=== PATIENT | female | born 1975 | race Caucasian/White ===

== ENCOUNTER 2021-07-11 11:49 | Outpatient (CLI) | payer BC, SELFPAY | END 2021-07-11 23:59 | disposition home or self-care (01) | PROVIDERS: Visit Provider Obstetrics & Gynecology | DX: R30.0 Dysuria (principal) | CPT/HCPCS: 87086; 87088 ==

== ENCOUNTER 2021-07-19 14:12 | Outpatient (CLI) | payer BC, SELFPAY ==
--- NOTE | 2021-07-19 14:19 | US_ITS ---
STUDY: ULTRASOUND BREAST - RIGHT REASON FOR EXAM: Female, 46 years old. Palpable mass TECHNIQUE: Axial and longitudinal images of the RIGHT breast were performed with a high resolution ultrasound transducer. # OF IMAGES: 22 COMPARISON: Diagnostic mammogram earlier today FINDINGS: RIGHT Breast: Heterogeneous background echotexture. Multiple longitudinal and transverse ultrasound images of the lower outer quadrant of the right breast fail to demonstrate a discrete solid or cystic mass most consistent with normal breast parenchyma.: US/Breast Limited Unilateral IMPRESSION: Normal diagnostic mammogram and right breast ultrasound. However, biopsy of any palpable abnormality should be performed if clinically indicated. ASSESSMENT CATEGORY: BIRADS Category 1: Negative. A letter regarding these results will be sent to the patient by the facility within 30 days. Electronically Signed: Aleksander Sewell MD at 16:21 EDT ,
--- NOTE | 2021-07-19 14:19 | BI_ITS ---
MAMMOGRAPHY - BILATERAL DIAGNOSTIC REASON FOR EXAM: Female, 46 years old. LUMP RIGHT BREAST PERTINENT HISTORY: Non-contributory. TECHNIQUE: Digital examination. Mediolateral oblique (MLO) and craniocaudad (CC) views of both breasts were obtained. CAD: CAD was performed on this study. COMPARISON: 09/24/2020 FINDINGS: Breast Composition: There are scattered areas of fibroglandular density. There are no dominant masses or suspicious calcifications. No other significant abnormalities are identified. BI/DIAG MAMM W/CAD, BILAT IMPRESSION: Stable bilateral diagnostic mammogram. Ultrasound of the palpable abnormality will be obtained. ASSESSMENT CATEGORY: BIRADS Category 0: Incomplete. Need additional imaging evaluation. A letter regarding these results will be sent to the patient by the facility within 30 days. FOLLOW UP RECOMMENDATION: Ultrasound Recommended. (I) Approximately 10% of breast cancers are not detected by mammography. A normal mammogram should not delay biopsy of a clinically suspicious abnormality. Electronically Signed: Aleksander Sewell MD at 15:17 EDT ,
== END 2021-07-19 23:59 | disposition home or self-care (01) ==
PROVIDERS: Referring Provider Obstetrics & Gynecology; Visit Provider Obstetrics & Gynecology
DX: N63.10 Unspecified lump in the right breast, unspecified quadrant (principal)
CPT/HCPCS: 76642; 77062; 77066; G0279

== ENCOUNTER → 2025-03-02 | Outpatient (CLI) | payer BC, SELFPAY ==
--- OUTSIDE RECORDS SUMMARY | 2025-03-02 11:06 | XMS RPT_ITS | CCD ---
Author Organization [facility] Care Team Providers Care Miter Grinder Operator Name Role Phone Pcp, No Primary Care Provider Unavailvane e Carolee LICENSED ARCHITECT.ROBER, Nikita Primary Care Provider Kristine Keyes CNP Unavailable CLEOPATRA CORTÉS Referring Unavailable INKITA CHOUDHARY Primary Care Unavailable DIOGO LIM Attending Unavaila ble Stephy RICHTER, Kristine Primary Care Provider [phone] STEPHY, KRISTINE Primary Care Unavailable ZAINA TAVARES Attending Unavailable KEYES, KRISTINE Primary Care Unavailable ZAINA TAVARES Referring Unavailable KEYES, KRISTINE Primary Care Unavailable PLOTZAINA GARCÍA Referring Unavailable KEYES, KRISTINE Primary Care Unavailable DEZ KAY Attending Unavailable KEYES, KRISTINE Primary Care Unavailable JOANIE LUNA Referring Unavailable KEYES, KRISTINE Primary Care Unavailable CHERYLKASHMIREE Referring Unavailable KEYES, KRISTINE Primary Care Unavailable ANISA OWENS Attending Unavailable KEYES, KRISTINE Primary Care Unavailable ZAINA TAVARES Attending Unavailable Allergies Allergy Classification Reported Allergen(s) Allergy Type Date of Onset Reaction(s) Facility Opioid Agonists (1 source) Codeine Drug Allergy 03-09-2005 [facility] (20 sources) Codeine; Translations: [CODEINE] Drug Allergy 03-09-2005 [facility] Work Phone: Medications Current Medications Medication Drug Class(es) Dates Sig (Normalized) Sig (Original) cephalexin 500 mg oral capsule (1 source) Cephalosporin Antibacterial Start: 03-18-2024 End: 03-21-2024 take 1 capsule by mouth four times daily cephALEXin (KEFLEX) 500 mg capsule Take 1 capsule by mouth four times daily for 3 days. 12 capsule 03/18/2024 03/21/2024 Active nitrofurantoin, macrocrystals 25 mg / nitrofurantoin, monohydrate 75 mg oral capsule (2 sources) Nitrofuran Antibacterial Start: 10-08-2023 End: 10-13-2023 take 1 capsule by mouth twice daily nitrofurantoin monohydrate and macrocrystal (MACROBID) 100 mg capsule Indications: Acute cystitis with hematuria Take 1 capsule by mouth two times a day for 5 days. 10 capsule 0 10/08/2023 10/13/2023 Active Start: 12-14-2022 End: 12-19-2022 take 1 capsule by mouth twice daily nitrofurantoin monohydrate and macrocrystal (MACROBID) 100 mg capsule Take 1 capsule by mouth twice daily for 5 days. 10 capsule 0 12/14/2022 12/19/2022 Comment on above: Take 1 capsule by [facility] twice daily for 5 days. omeprazole 20 mg delayed release oral capsule (11 sources) Proton Pump Inhibitor take 1 capsule by mouth once daily omeprazole (PRILOSEC) 20 mg capsule Take 20 mg by mouth once daily. Active Comment on above: Take 20 mg by mouth once daily. phenazopyridine hydrochloride 200 mg oral tablet (6 sources) Start: 03-18-20 take 1 tablet by mouth three times daily as needed phenazopyridine (PYRIDIUM) 200 mg tablet Take 1 tablet by mouth as directed. Take TID for 3 days prn bladder discomfort 30 tablet 1 03/18/2024 Active SEMAGLUTIDE SUBCUTANEOUS (10 sources) SEMAGLUTIDE SUBCUTANEOUS Inject subcutaneously. Active SEMAGLUTIDE SUBC UTANEOUS Inject subcutaneously. 0 Active triamcinolone acetonide 0.001 mg/mg topical ointment (3 sources) Corticosteroid Start: 06-16-2024 triamcinolone acetonide (KENALOG) 0.1 % ointment Apply to affected area two times a day. 30 g 06/16/2024 Active Completed/Discontinued Medications Medication Drug Class(es) Dates Sig (Normalized) Sig (Original) 12 hr buPROPion hydrochloride 150 mg extended release oral tablet (2 sources) Aminoketone Start: 05-08-2014 End: 12-19-2022 take 1 tablet by mouth twice daily buPROPion SR (ZYBAN SR; WELLBUTRIN SR) 150 mg 12 hr tablet Indications: Tobacco use disorder Take 1 tablet by mouth twice daily. 60 tablet 5 05/08/2014 12/19/2022 Discontinued (Course of therapy completed) Comment on above: Take 1 tablet by isabel th twice daily. fluconazole 150 mg oral tablet (2 sources) Azole Antifungal Start: 06-17-2024 End: 06-17-2024 take 1 tablet by mouth once fluconazole (DIFLUCAN) 150 mg tablet Indications: Vaginal yeast infection Take 1 tablet by mouth one time only for 1 dose. 1 tablet 06/17/2024 06/17/2024 Start: 12-19-2022 End: 12-19-2022 take 1 tablet by mouth once fluconazole (DIFLUCAN) 150 mg tablet Indications: Vaginal yeast infection Take 1 tablet by mouth one time only for 1 dose. 1 tablet 0 12/19/2022 12/19/2022 Comment on above: Take 1 tablet by isabel th one time only for 1 dose. metroNIDAZOLE 500 mg oral tablet (1 source) Nitroimidazole Antimicrobial Start: 025 End: take 1 tablet by mouth twice daily metroNIDAZOLE (FLAGYL) 500 mg tablet Indications: Bacterial vaginosis Take 1 tablet by mouth two times a day for 7 days. 14 tablet 06/17/2024 06/24/2024 nabumetone 500 mg oral tablet (2 sources) Nonsteroidal Anti-inflammatory Drug Start: 014 End: take 1 tablet by mouth every twelve hours as needed nabumetone 500 mg tablet Take 1 tablet by mouth twice daily as needed for Pain. TAKE WITH FOOD 60 tablet 3 11/20/2013 12/19/2022 Discontinued (Course of therapy completed) Comment on above: Take 1 tablet by isabel twice daily as needed for Pain. TAKE WITH FOOD nicotine 2 mg chewing gum (2 sources) Cholinergic Nicotinic Agonist Start: 015 End: 023 take 1 dose by mouth every two hours as needed nicotine polacrilex (NICORETTE) 2 mg gum Indications: Tobacco use disorder Take 1 Each by mouth every 2 hours as needed (nicotine withdrawal). 20 Each 5 05/08/2014 12/19/2022 Discontinued (Course of therapy completed) Comment on above: Take 1 Each by mouth every 2 hours as needed (nicotine withdrawal). pramipexole dihydrochloride 0.5 mg oral tablet (10 sources) Nonergot Dopamine Agonist End: take 1 tablet by mouth once daily at bedtime pramipexole (MIRAPEX) 0.5 mg tablet Take 0.5 mg by mouth daily at bedtime. 0 03/11/2023 Discontinued (Course of therapy completed) Comment on above: Take 0.5 mg by mouth daily at bedtime. raNITIdine 150 mg oral tablet (14 sources) Histamine-2 Receptor Antagonist Start: 014 End: 023 take 1 tablet by mouth twice daily ranitidine 150 mg tablet Indications: GERD (gastroesophageal reflux disease) Take 1 tablet by mouth twice daily. 60 tablet 5 01/08/2014 12/19/2022 Discontinued (Course of therapy completed) Start: 02-23-2013 RANITIDINE HCL ORAL Take by mouth. 02/23/2013 Active Start: 02-23-2013 RANITIDINE HCL ORAL Take by mouth. 0 02/23/2013 Active Comment on above: Take 1 tablet by isabel twice daily. Take by mouth. Problems Active Problems Problem Classification Problem Date Documented Date Episodic/Chronic Disorders of lipid metabolism (20 sources) Hyperlipidemia; Translations: [Hyperlipidemia, unspecified] Onset: 05-15-2013 05-15-2013 Chronic Gastroduodenal ulcer (except hemorrhage) (1 source) H/O: peptic ulcer; Translations: [Personal history of peptic ulcer disease] Episodic Genitourinary symptoms and ill-defined conditions (6 sources) Increased frequency of urination; Translations: [Frequency of micturition] 10-08-2023 Episodic Hemorrhage during ; abruptio placenta; placenta previa (1 source) Hemorrhage in early , unspecified; Translations: [Bleeding in early (HCC)] Onset: 02-26-2025 Episodic Immunizations and screening for infectious disease (19 sources) Patient encounter status; Translations: [Encounter for screening for human papillomavirus (HPV)] Onset: 03-11-2023 12-19-2022 Episodic Inflammatory diseases of female pelvic organs (1 source) Bacterial vaginosis; Translations: [Acute vaginitis] 06-17-2024 Episodic Menopausal disorders (3 sources) Perimenopausal state; Translations: [Menopausal and female climacteric states] Onset: 12-31-2024 12-31-2024 Chronic Menstrual disorders (1 source) Irregular periods; Translations: [Irregular menstruation, unspecified] 12-31-2024 Chronic Mycoses (2 sources) Candidiasis of vagina; Translations: [Vaginal yeast infection] 12-19-2022 Episodic Other female genital disorders (1 source) Vaginal odor; Translations: [Other specified noninflammatory disorders of vagina] 06-14-2023 Episodic Other female genital disorders (1 source) Vaginal irritation; Translations: [Other specified noninflammatory disorders of vagina] 06-16-2024 Episodic Other inflammatory condition of skin (1 source) Pruritus of vulva; Translations: [Pruritus vulvae] 06-16-2024 Episodic Other screening for suspected conditions (not mental disorders or infectious disease) (8 sources) Cancer cervix screening status; Translations: [Encounter for screening for malignant neoplasm of cervix] Onset: 05-15-2023 12-19-2022 Episodic Spondylosis; intervertebral disc disorders; other back problems (1 source) Low back pain; Translations: [Low back pain, unspecified back pain laterality, unspecified chronicity, unspecified whether sciatica present] Episodic Substance-related disorders (20 sources) Tobacco user; Translations: [Nicotine dependence, unspecified, uncomplicated] Onset: 06-14-2006 06-14-2006 Chronic Syncope (1 source) Near syncope; Translations: [Syncope and collapse] 02-05-2023 Episodic Unclassified (1 source) Patient encounter status 12-31-2024 Urinary tract infections (5 sources) Acute cystitis; Translations: [Acute cystitis with hematuria] Onset: 12-31-2024 10-08-2023 Episodic Past or Other Problems Problem Classification Problem Date Documented Da te Episodic/Chronic Abdominal pain (10 sources) Epigastric pain; Translations: [Epigastric pain] Onset: 01-08-2014 Resolved: 01-08-2014 01-08-2014 Episodic Residual codes; unclassified (20 sources) Family history of coronary arteriosclerosis; Translations: [Family history of ischemic heart disease and other diseases of the circulatory system] Onset: 06-26-2011 06-26-2011 Episodic Results Test Name Value Interpretation Reference Range Facil ity CBC W Auto Differential pane l (Bld)on 02-26-2025 Basophils (Bld) [#/Vol] 0.06 10*3/uL Normal <0.11 [facility] Comment on above: Order Comment: Speci men Type: BLOOD SPECIMENOrdering Facility: [facility] Address: [address] [place] [address] Performed By: #### 5 7021-8 ####[facility] OPALRadhikaNCLIA [id number] [place] [address] [place] Basophils/100 WBC (Bld) 0.5 % Normal [facility] Comment on above: Order Comment: Speci men Type: BLOOD SPECIMENOrdering Facility: [facility] Address: [address] [place] [address] Performed By: #### 5 7021-8 ####CENTERVILLELIA [id number] [place] [address] [place] Differential cell count method Nom (Bld) Auto Normal [facility] Comment on above: Order Comment: Speci men Type: BLOOD SPECIMENOrdering Facility: [facility] Address: [address] [place] [address] Performed By: #### 5 7021-8 ####CENTERVILLELIA [id number] [place] [address] [place] Eosinophils (Bld) [#/Vol] 0.26 10*3/uL Normal <0.46 [facility] Comment on above: Order Comment: Speci men Type: BLOOD SPECIMENOrdering Facility: [facility] Address: [address] [place] [address] Performed By: #### 5 7021-8 ####[facility] MILLWNCLIA [id number] [place] [address] [place] Eosinophils/100 WBC (Bld) 2.0 % Normal [facility] Comment on above: Order Comment: Speci men Type: BLOOD SPECIMENOrdering Facility: [facility] Address: [address] [place] [address] Performed By: #### 5 7021-8 ####[facility] HOSPITALWEMMETTLIA [id number] [place] [address] [place] Erythrocyte distribution width (RBC) [Ratio] 13.2 % Normal 11.5-15.0 [facility] Comment on above: Order Comment: Speci men Type: BLOOD SPECIMENOrdering Facility: [facility] Address: [address] [place] [address] Performed By: #### 5 7021-8 ####[facility]OSPITALEMMETTLIA [id number] [place] [address] [place] Hematocrit (Bld) [Volume fraction] 42.2 % Normal 36.0-46.0 [facility] Comment on above: Order Comment: Speci men Type: BLOOD SPECIMENOrdering Facility: [facility] Address: [address] [place] [address] Performed By: #### 5 7021-8 ####[facility]PITALEMMETTGARFIELD [facility] [id number] [place] [address] [place] Hemoglobin (Bld) [Mass/Vol] 13.7 g/dL Normal 11.5-15.5 [facility] Comment on above: Order Comment: Speci men Type: BLOOD SPECIMENOrdering Facility: [facility] Address: [address] [place] [address] Performed By: #### 5 7021-8 ####CENTERV[facility]LELIA [id number] [place] [address] [place] Immature granulocytes (Bld) [#/Vol] 0.06 10*3/uL Normal <0.10 [facility] Comment on above: Order Comment: Speci men Type: BLOOD SPECIMENOrdering Facility: [facility] Address: [address] [place] [address] Performed By: #### 5 7021-8 ####[facility] HOSPITALNCLI [id number] [place] [address] [place] Immature granulocytes/100 WBC (Bld) 0.5 % Normal [facility] Comment on above: Order Comment: Speci men Type: BLOOD SPECIMENOrdering Facility: [facility] Address: [address] [place] [address] Performed By: #### 5 7021-8 ####[facility]PITALNCGARFIELD [facility] [id number] [place] [address] [place] Lymphocytes (Bld) [#/Vol] 3.09 10*3/uL Normal 1.00-4.00 [facility] Comment on above: Order Comment: Speci men Type: BLOOD SPECIMENOrdering Facility: [facility] Address: [address] [place] [address] Performed By: #### 5 7021-8 ####[facility] [id number] [place] [address] [place] Lymphocytes/100 WBC (Bld) 23.9 % Normal [facility] Comment on above: Order Comment: Speci men Type: BLOOD SPECIMENOrdering Facility: [facility] Address: [address] [place] [address] Performed By: #### 5 7021-8 ####[facility] [id number] [place] [address] [place] MCH (RBC) [Entitic mass] 29.1 pg Normal 26.0-34.0 [facility] Comment on above: Order Comment: Speci men Type: BLOOD SPECIMENOrdering Facility: [facility] Address: [address] [place] [address] Performed By: #### 5 7021-8 ####[facility] [id number] [place] [address] [place] MCHC (RBC) [Mass/Vol] 32.5 g/dL Normal 30.5-36.0 [facility] Comment on above: Order Comment: Speci men Type: BLOOD SPECIMENOrdering Facility: [facility] Address: [address] [place] [address] Performed By: #### 5 7021-8 ####[facility] HOSPITALCHRISTIAN [id number] [place] [address] [place] MCV (RBC) [Entitic vol] 89.6 fL Normal 80.0-100.0 [facility] Comment on above: Order Comment: Speci men Type: BLOOD SPECIMENOrdering Facility: [facility] Address: [address] [place] [address] Performed By: #### 5 7021-8 ####[facility] HOSPITALNCA [id number] [place] [address] [place] Monocytes (Bld) [#/Vol] 0.81 10*3/uL Normal <0.87 [facility] Comment on above: Order Comment: Speci men Type: BLOOD SPECIMENOrdering Facility: [facility] Address: [address] [place] [address] Performed By: #### 5 7021-8 ####[facility] [id number] [place] [address] [place] Monocytes/100 WBC (Bld) 6.3 % Normal [facility] Comment on above: Order Comment: Speci men Type: BLOOD SPECIMENOrdering Facility: [facility] Address: [address] [place] [address] Performed By: #### 5 7021-8 ####[facility] HOSPITALNCLIA [id number] [place] [address] [place] Neutrophils (Bld) [#/Vol] 8.65 10*3/uL High 1.45-7.50 [facility] Comment on above: Order Comment: Speci men Type: BLOOD SPECIMENOrdering Facility: [facility] Address: [address] [place] [address] Performed By: #### 5 7021-8 ####[facility] OPALVANELIA [id number] [place] [address] [place] Neutrophils/100 WBC (Bld) 66.8 % Normal [facility] Comment on above: Order Comment: Speci men Type: BLOOD SPECIMENOrdering Facility: [facility] Address: [address] [place] [address] Performed By: #### 5 7021-8 ####[facility] HOSPITALNEISHA [id number] [place] [address] [place] Nucleated RBC (Bld) [#/Vol] 10*3/uL Normal <0.01 [facility] Comment on above: Order Comment: Speci men Type: BLOOD SPECIMENOrdering Facility: [facility] Address: [address] [place] [address] Performed By: #### 5 7021-8 ####[facility] [id number] [place] [address] [place] Nucleated RBC/100 WBC (Bld) [Ratio] 0.0 /100 WBC Normal [facility] Comment on above: Order Comment: Speci men Type: BLOOD SPECIMENOrdering Facility: [facility] Address: [address] [place] [address] Performed By: #### 5 7021-8 ####[facility]LECHANI [id number] [place] [address] [place] Platelet mean volume (Bld) [Entitic vol] 11.0 fL Normal 9.0-12.7 [facility] Comment on above: Order Comment: Speci men Type: BLOOD SPECIMENOrdering Facility: [facility] Address: [address] [place] [address] Performed By: #### 5 7021-8 ####[facility]LELIA [id number] [place] [address] [place] Platelets (Bld) [#/Vol] 275 10*3/uL Normal 150-400 [facility] Comment on above: Order Comment: Speci men Type: BLOOD SPECIMENOrdering Facility: [facility] Address: [address] [place] [address] Performed By: #### 5 7021-8 ####[facility]PITALNCGARFIELD [facility] [id number] [place] [address] [place] RBC (Bld) [#/Vol] 4.71 10*6/uL Normal 3.90-5.20 [facility] Comment on above: Order Comment: Speci men Type: BLOOD SPECIMENOrdering Facility: [facility] Address: [address] [place] [address] Performed By: #### 5 7021-8 ####[facility]ITALNCGAR[facility] [id number] [place] [address] [place] WBC (Bld) [#/Vol] 12.93 10*3/uL High 3.70-11.00 [facility] Comment on above: Order Comment: Speci men Type: BLOOD SPECIMENOrdering Facility: [facility] Address: [address] [place] [address] Performed By: #### 5 7021-8 ####[facility] [id number] [place] [address] [place] TYPE + SCREEN PRENATALon ABO O Normal [facility] Comment on above: Order Comment: Speci men Type: BLOOD SPECIMENOrdering Facility: [facility] Address: [address] [place] [address] Performed By: #### T SPN ####[facility] LABCLIA [id number] [place] [address] [place] Rh Nom (Bld) Positive Normal [facility] Comment on above: Order Comment: Speci men Type: BLOOD SPECIMENOrdering Facility: [facility] Address: [address] [place] [id number] Performed By: #### T SPN ####[facility] LABCLIA [id number] [place] [id number] [place] TYPE AND SCREEN EXPIRATION 03/01/2025 23:59 Normal [facility] Comment on above: Order Comment: Speci men Type: BLOOD SPECIMENOrdering Facility: [facility] Address: [address] [place] [address] [place] [address] Performed By: #### T SPN ####[facility] LABCLIA [id number] [place] [id number] [facility] CNOVon 02-25-2025 CNOV Office Visit (OBGYWM) YASMIN EDEN Raajt ([id number]) 1975 F Date Time Provider Department 02/25/25 1:30 PM ZAINA TAVARES OBGYWM During your visit today, we recorded the following information about you: Blood pressure Weight Last Period 118/78 107 kg 02/22/25 Zaina Tavares APRN.CNM 02/25/2025 2:08 PM Signed Yasmin Earl Meek is a pleasant 49 year old female who presents for heavy period. LMP: Patient's last menstrual period was 02/22/2025. How often are you bleeding? How many days? 4 Started spotting last Saturday and then full bleeding on Saturday. Reports cycle is very heavy and she continues to bleed through pads and clothes. Lower left pelvic pain. Denies any cramping. Denies passing any clots. Do you have bleeding between menses? No Spotting? No History of endometrial polyps? No Post coital bleeding? No Bleeding through clothing? Yes Are you double protecting? No Do you pack an extra set of clothing while bleeding? No Do you put towels on your bedsheets while you are sleeping? No Have you ever received a blood transfusion? No Iron infusion? No Do you have shortness of breath? No Lightheaded? No Dizzy? No but had weakness at work yesterday. HISTORY PAST MEDICAL HISTORY Diagnosis Date NEGATIVE MEDICAL HISTORY PAST SURGICAL HISTORY Procedure Laterality Date APPENDECTOMY 1996 LAPAROSCOPY SURG CHOLECYSTECTOMY 1998 Cholecystectomy, lap LIG/TRNSXJ FLP TUBE ABDL/VAG APPR UNI/BI 1999 Tubal ligation FAMILY HISTORY Problem Relation Age of Onset Coronary Artery Disease Mother TX Colon Polyps Mother Coronary Artery Disease Father [place] Breast Cancer Maternal Grandmother Cancer Maternal Grandmother THROAT SOCIAL HISTORY SOCIAL HISTORY[1] REVIEW OF SYSTEMS No recent weight gain or weight loss. Abdomen: No abdominal pain, nausea, vomiting, diarrhea, or constipation. No bloating, early satiety, indigestion, or increased flatulence. Bladder: No dysuria, gross hematuria, urinary frequency, urinary urgency, or incontinence. SENSITIVE EXAM: The sensitive examination was discussed with the Patient or Patient's Authorized Meter Repair Shop Supervisor. As applicable, any other physician, advance practice provider, medical student, or other health professional student that will be observing or involved in the sensitive examination for educational or training purposes was discussed with the Patient or Authorized Meter Repair Shop Supervisor. The Patient or Authorized Meter Repair Shop Supervisor has agreed to proceed with the sensitive examination. (Sensitive examination includes inspection and/or palpation of the breasts, pelvis, prostate and anorectal regions). EXAM: BP 118/78 Wt 236 lb (107.0kg) LMP 02/22/2025 GENERAL: emotional, female in no apparent distress HEENT: Normocephalic and atraumatic NECK: Supple and full range of motion DERMATOLOGY: Normal and without lesions CHEST: Normal inspiratory effort ABDOMEN: soft, non-tender, and no masses PELVIC: external genitalia normal, normal Bartholin's glands, urethra, Kaloko's glands, no vulvar lesions, no cervical lesions, good vaginal support, physiologic discharge present, normal appearing perineal body and perianal region, moderate blood BIMANUAL: Moderate tenderness to left lower area ASSESSMENT/PLAN: 1. Menorrhagia, premenopausal - ICD9: 627.0, ICD10: N92.4 - PELVIC US WHI - INSERT INTRAUTERINE DEVICE - Discussed R/B to Mirena IUD placement to help with irregularities due to perimenopause. Patient would like to think about it and will call to schedule - Will follow up after pelvic US results return - Possible EMB? - Aygestin taper ordered and patient education on use if continues to have heavy bleeding - CBC and TANDS today Zaina Tavares APRN.DENNISM [1] Social History Tobacco Use Smoking status: Every Day Current packs/day: 0.50 Average packs/day: 0.5 packs/day for 9.0 years (4.5 ttl pk-yrs) Types: Cigarettes Smokeless tobacco: Never Vaping Use Vaping status: Never Used Substance Use Topics Alcohol use: No Drug use: No Allergies As of Date: 02/25/2025 Noted Allergy Reaction CODEINE 03/09/2005 Date Reviewed: 02/25/2025 Reviewed by: Edmundo Bell LPN - Fully Assessed Reason for Visit: abnormal uterine bleeding [Other] Primary Visit Diagnosis:Menorrhagi a, premenopausal [N92.4] Order(s):omeprazole (PRILOSEC) 20 mg capsuleTake 1 capsule by mouth once daily.Disp: 90 capsuleRfl: 1 PELVIC US WHI [[id number]] Order #: [id number]: 1 FUTURE INSERT INTRAUTERINE DEVICE [[id number]] Order #: [id number] norethindrone (AYGESTIN) 5 mg tablet1 tab 3x/day until bleeding stops. 1 tab 2x/day x 2 days. 1 tab daily x 2 daysDisp: 35 tabletRfl: 0 Prescriptions as of 02/25/2025 - omeprazole (PRILOSEC) 20 mg capsule Take 1 capsule by mouth once daily. - norethindrone (AYGESTIN) 5 mg tablet 1 tab 3x/day unti (more content not included)... [facility] Y[facility] ([id number]) 1975 F Date Time Provider Department 02/25/25 ZAINA TAVARES During your visit today, we recorded the following information about you: Roxanna Lynne RN 02/25/2025 8:41 AM Signed Nurse control valve mechanic received call from patient regarding heavy bleeding and transferred to the office to further triage and advise. Patient began bleeding on Saturday. LMP 12/13/24. She has been soaking a pad every 2-3 hours since then. Having lower left sided cramping pain. States she rarely has cramping with menses. Pain rate of 4. Not passing clots on pad, but will notice blood in toilet. Denies Shortness of Breath, CP, or dizziness. Feeling weak and her coworkers commented that she looks pale. Appointment scheduled for 1:30 PM. Patient lives over an hour away and prefers afternoon. Bleeding precautions reviewed and when to go to ER. Only need to call patient back if provider has further advice until she is seen. Would you like to order a CBC to be drawn when she arrives? KB Bates Courtney, APRN.CNM 02/25/2025 12:10 PM Signed Did this patient have a NOB scheduled? She is approximately 10 weeks gestation. I will evaluate her today but she will need scheduled for NOB. CBC and TANDS needed at this time. Thank you. RILEY Mejia Jennifer, RN 02/25/2025 12:24 PM Addendum Patient had a tubal in 1999. She did not make a statement that she was concerned for or missed AB. Has irregular menses. Do you still want a Type and screen? Still need to call and let patient know. KB Bates Courtney, APRN.CNM 02/25/2025 12:37 PM Signed I apologize, I thought she was . No she does not need TANDS. Zaina Tavares APRN.CNM Allergies As of Date: 02/25/2025 Noted Allergy Reaction CODEINE 03/09/2005 Date Reviewed: 02/25/2025 Reviewed by: Afshan Campos RN - Fully Assessed Reason for Visit: Heavy Bleeding [Other] Primary Visit Diagnosis:Bleeding in early (HCC) [O20.9] Order(s):COMPLETE BLOOD COUNT AND DIFFERENTIAL [SQCBCDIF] Order #: [id number] FUTURE TYPE + SCREEN [SQTSPN] Order #: [id number] FUTURE Prescriptions as of 02/25/2025 - triamcinolone acetonide (KENALOG) 0.1 % ointment Apply to affected area two times a day. - phenazopyridine (PYRIDIUM) 200 mg tablet Take 1 tablet by mouth as directed. Take TID for 3 days prn bladder discomfort - SEMAGLUTIDE SUBCUTANEOUS Inject subcutaneously. - omeprazole (PRILOSEC) 20 mg capsule Take 20 mg by mouth once daily. - RANITIDINE HCL ORAL Take by mouth. Problem List As Of Date 02/25/2025 Noted Resolved TOBACCO USE DISORDER [F17.200] 06/14/2006 Family history of coronary artery disease [Z82.*06/26/2011 Hyperlipidemia [E78.5] 05/15/2013 Epigastric abdominal pain [R10.13] 01/08/2014 01/08/2014 Screening for colon cancer [Z12.11] 03/11/2023 Recurrent UTI [N39.0] 12/31/2024 Perimenopausal [N95.1] 12/31/2024 Encounter Status:Closed by [facility]AIN[facility] (OBGYWM[facility] MEEKYASMIN Earl ([id number]) 1975 F Date Time Provider Department 12/31/24 4:00 PM ZAINA ATVARES OBGYWM During your visit today, we recorded the following information about you: Blood pressure Weight Height Last Period 128/80 106.4 kg 1.575 m 12/13/24 Zaina Tavares APRN.CNM 12/31/2024 4:06 PM Signed Engineering Model Maker offered: Patient declines. Yasmin is a 49 year old who presents for an annual gynecologic exam without complaints. C/O cycles continue to be irregular. Some months skips cycle and other months has multiple cycles. Still get period: Yes Bleeding amount bothersome: No Bleeding between periods: Yes Period symptoms: Breast tenderness Menopause symptoms: Hot flashes; Vaginal dryness Time with current partner: 4 years Number of lifetime partners: 5 Contraception frequency: Always HPV vaccine: Unsure; HPV:negative Last pap smear: 12/19/2022, normal History of abnormal pap: No, all prior PAP smears have been normal Bothersome pelvic pain: Yes Last mammogram: bnormal, has ultrasound and dx mammo of left, was normal OB History Gravida3 Para3 Term3 Preterm0 AB0 Living3 SAB0 IAB0 Ectopic0 Multiple0 Live Births0 Insurance Processing Clerk History LMP: 12/13/2024, Having periods Age at Menarche: 13 Age at First : Age at Menopause: Insurance Processing Clerk History Comments: Sexual Activity: Yes; Male Contraception: Tubal Ligation Menstrual Tracking History Flowsheet Row Office Visit from 12/31/2024 in OB/Gynecology Period Cycle (Days) 28 Period Duration (Days) 3 Menstrual Flow Light PAST MEDICAL HISTORY Diagnosis Date NEGATIVE MEDICAL HISTORY PAST SURGICAL HISTORY Procedure Laterality Date APPENDECTOMY 1996 LAPAROSCOPY SURG CHOLECYSTECTOMY 1998 Cholecystectomy, lap LIG/TRNSXJ FLP TUBE ABDL/VAG APPR UNI/BI 1999 Tubal ligation FAMILY HISTORY Problem Relation Age of Onset Coronary Artery Disease Mother TX Colon Polyps Mother Coronary Artery Disease Father [place] Breast Cancer Maternal Grandmother Cancer Maternal Grandmother THROAT SOCIAL HISTORY Social History Tobacco Use Smoking status: Every Day Current packs/day: 0.50 Average packs/day: 0.5 packs/day for 9.0 years (4.5 ttl pk-yrs) Types: Cigarettes Smokeless tobacco: Never Vaping Use Vaping status: Never Used Substance Use Topics Alcohol use: No Drug use: No REVIEW OF SYSTEMS Abdomen: No abdominal pain, nausea, vomiting, diarrhea, or constipation. No bloating, early satiety, indigestion, or increased flatulence. Bladder: Frequent UTI- stated 5-6 / year and was told to see Urology but couldn't get appointment? Breast: No breast lumps, nipple d/c, overlying skin changes, redness or skin retraction. Allergies and current medication updated:Yes SENSITIVE EXAM: The sensitive examination was discussed with the Patient or Patient's Authorized Meter Repair Shop Supervisor. As applicable, any other physician, advance practice provider, medical student, or other health professional student that will be observing or involved in the sensitive examination for educational or training purposes was discussed with the Patient or Authorized Meter Repair Shop Supervisor. The Patient or Authorized Meter Repair Shop Supervisor has agreed to proceed with the sensitive examination. (Sensitive examination includes inspection and/or palpation of the breasts, pelvis, prostate and anorectal regions). EXAM: BP 128/80 Ht 5' 2 (1.58m) Wt 234 lb 9.6 oz (106.4kg) LMP 12/13/2024 BMI 42.90 kg/(m2). GENERAL: pleasant, female in no apparent distress HEENT: Normocephalic, atraumatic, and mucus membranes moist NECK: Supple and full range of motion DERMATOLOGY: Normal and without lesions BREAST: soft, non-tender, symmetric, no dominant mass, normal nipple-areolar complex, no lymphadenopathy, and no nipple discharge CHEST: Normal inspiratory effort ABDOMEN: soft, non-tender, and no masses PELVIC: external genitalia normal, normal Bartholin's glands, urethra, Kaloko's glands, no vulvar lesions, no cervical lesions, good vaginal support, physiologic discharge present, normal appearing perineal body and perianal region BIMANUAL: uterus normal size, shape and consistency, no adnexal masses, non-tender, and no cervical motion tenderness RECTOVAGINAL: deferred. NEURO: alert and oriented x3,exam grossly non-focal EXTREMITIES: normal ASSESSMENT/PLAN: 1) Health maintenance: Pap/HPV up to date. Mammogram ordered- patient to schedule Nutrition, exercise and routine health maintenance exams reviewed. Lipids/glucose: followed by PCP Vitamin D: followed by PCP 2) Contraception: tubal sterilization. Contraceptive options reviewed and information provided. 3) STD screening: Declined STI check. 4) Consult urology- recurrent UTI Follow up one year or sooner as needed Zaina Tavares APRN.CNM Allergies As of Date: (more content not included)... Normal [facility] BACTERIAL VAGINOSIS NAATon 0 06-16-2024 Lactobacillus crispatus+gasseri+graham enii + Gardnerella vaginalis + Atopobium vaginae rRNA BRANDON+probe Ql (Vag fld) Detected Abnormal Not detected [facility] Comment on above: Order Comment: Speci men Type: SWABOrdering Facility: [facility] Address: [address] [place] [address] Performed By: #### B VAMP, CVTV ####[facility] LABCLIA [id number] [place] [address] [place] Bacteria Ur Culton Bacteria identified Cx Nom (U) ORGANISM ID: 1 10,000 -<50,000 CFU/ml Mixed microbiota No further workup. Mixed microbiota can be due to???urine???contami nation with skin bacteria at time of collection or presence of a long-term urinary catheter. If a new culture is needed, please consider re-education of the patient on proper midstream collection technique or straight catheterization for???urine???collec tion. Normal [facility] Comment on above: Performed By: #### 6 30-4 ####[facility] LABCLIA [id number] [place] [address] [place] KATHLEEN/TRICHOMONAS NAATon 0 06-16-2024 C. glabrata RNA BRANDON+probe Ql (Vag fld) Not detected Normal Not detected [facility] Comment on above: Order Comment: Speci men Type: SWABOrdering Facility: [facility] Address: [address] [place] [address] Performed By: #### B VAMP, CVTV ####[facility] LABCLIA [id number] [place] [address] [place] Kathleen sp DNA BRANDON+probe Ql (Vag fld) Detected Abnormal Not detected [facility] Comment on above: Order Comment: Speci men Type: SWABOrdering Facility: [facility] Address: [address] [place] [address] Result Comment: The Kathleen species group target includes C. albicans, C. tropicalis, C. parapsilosis, and C. dubliniensis. Performed By: #### B VAMP, CVTV ####[facility] LABCLIA [id number] [place] [address] [place] T. vaginalis DNA BRANDON+probe Ql (Unsp spec) Not detected Normal Not detected [facility] Comment on above: Order Comment: Speci men Type: SWABOrdering Facility: [facility] Address: [address] [place] [address] Performed By: #### B SHANNA BRUNNERTV ####[facility] LABCLIA [id number] [id number] CNOVon 06-16-2024 CNOV Office Visit (OBGYWM) YASMIN EDEN ([id number]) 1975 F Date Time Provider Department 06/16/24 1:20 PM ANISA OWENS OBGYWM During your visit today, we recorded the following information about you: Blood pressure Weight Last Period 148/82 101.2 kg 04/23/24 Anisa Owens MD 06/16/2024 1:44 PM Signed Yasmin Eden is a 49 year old female who presents for problem visit. HPI: Patient presents with some vulvovaginal itching and irritation. She had some dysuria last week and took some old antibiotics. Also she has used 2 of 3 days of Monistat 3. No dose since yesterday. OB History Gravida3 Para3 Term3 Preterm0 AB0 Living3 SAB0 IAB0 Ectopic0 Multiple0 Live Births0 Insurance Processing Clerk History LMP: 03/10/2024 (Exact Date), Having periods Age at Menarche: Age at First : Age at Menopause: Insurance Processing Clerk History Comments: Sexual Activity: Yes; Male Contraception: Tubal Ligation PAST MEDICAL HISTORY Diagnosis Date NEGATIVE MEDICAL HISTORY PAST SURGICAL HISTORY Procedure Laterality Date APPENDECTOMY 1996 LAPAROSCOPY SURG CHOLECYSTECTOMY 1998 Cholecystectomy, lap LIG/TRNSXJ FLP TUBE ABDL/VAG APPR UNI/BI 1999 Tubal ligation FAMILY HISTORY Problem Relation Age of Onset Coronary Artery Disease Mother TX Colon Polyps Mother Coronary Artery Disease Father [place] Breast Cancer Maternal Grandmother Cancer Maternal Grandmother THROAT Social History Tobacco Use Smoking status: Every Day Current packs/day: 0.50 Average packs/day: 0.5 packs/day for 9.0 years (4.5 ttl pk-yrs) Types: Cigarettes Smokeless tobacco: Never Vaping Use Vaping status: Never Used Substance Use Topics Alcohol use: No Drug use: No Current Outpatient Medications Medication Sig phenazopyridine (PYRIDIUM) 200 mg tablet Take 1 tablet by mouth as directed. Take TID for 3 days prn bladder discomfort SEMAGLUTIDE SUBCUTANEOUS Inject subcutaneously. omeprazole (PRILOSEC) 20 mg capsule Take 20 mg by mouth once daily. RANITIDINE HCL ORAL Take by mouth. No current facility-administere d medications for this visit. Allergies As of Date: 06/16/2024 Allergen Noted Reaction CODEINE 03/09/2005 Fully Assessed 03/18/2024 Allergies and current medication updated:Yes SENSITIVE EXAM: The sensitive examination was discussed with the Patient or Patient's Authorized Meter Repair Shop Supervisor. As applicable, any other physician, advance practice provider, medical student, or other health professional student that will be observing or involved in the sensitive examination for educational or training purposes was discussed with the Patient or Authorized Meter Repair Shop Supervisor. The Patient or Authorized Meter Repair Shop Supervisor has agreed to proceed with the sensitive examination. (Sensitive examination includes inspection and/or palpation of the breasts, pelvis, prostate and anorectal regions). EXAM: LMP 03/10/2024 GENERAL: pleasant, female in no apparent distress PELVIC: external genitalia normal but with slight erythema, normal Bartholin's glands, urethra, Kaloko's glands, no vulvar lesions, no cervical lesions, good vaginal support, physiologic discharge present, white appearing perineal body and perianal region ASSESSMENT AND PLAN: Assessment AND Plan Vaginal irritation Orders: UA DIP, URINE (POC) Vulvar itching Dysuria Kenalog ointment sent. Advised on perineal hygiene. Medical Decision Making: Problems: Low: Acute, uncomplicated illness or injury Data: Unique test(s) ordered: 3+ Risk: Moderate: Drug management Medical Decision Making Level: 4 - Moderate MD Abel Victoria Karmon, MD 06/16/2024 1:41 PM Signed Minimizing irritation of the vulva (area around the vagina) Wear white cotton underwear. Avoid synthetic fabrics and tight clothing. Sleep wearing shorts or pajama bottoms without underwear. Shower as soon as possible after exercise. Avoid clothing detergents and soaps with perfumes or dyes. Use warm (not hot) water to wash the vulva and if you use soap use a product designed for sensitive skin (like Dove or Cetaphil). Do not douche or use creams/powders in the vulvar area unless instructed by your physician. If you must douche, use only plain warm water. Make sure the vulva is dry before dressing by patting dry with a towel. Avoid vigorous rubbing with the towel. You may want to use the blow dryer (on the cool setting only!) on the vulva. The most important way to let your body heal is by avoiding scratching. Many patients find it difficult to avoid scratching at night when they are most aware of the itchiness. You can try taking Benadryl just before bedtime. Some women find it helpful to wear cotton gloves to bed to avoid scratching at night. AANDD ointment - barrier cream Allergies As of Date: 06/16/2024 Noted Allergy Reaction CODEINE 03/09/2005 Date Reviewed: 06/16/2024 Reviewed by: Buzz Owens (more content not included)... Normal [facility] UA DIP, URINE (POC)on 2024 BILIRUBIN UA (POCT) Negative Negative [facility] CLARITY UA (POCT) Cloudy [facility] COLOR UA (POCT) Light yellow [facility] GLUCOSE UA (POCT) Negative Negative mg/dL [facility] Hemoglobin Ql (U) Moderate Abnormal Negative [facility] Interpretation and review of laboratory results Abnormal [facility] KETONE UA (POCT) Negative Negative mg/dL [facility] LEUKOCYTES UA (POCT) Small Abnormal Negative [facility] NITRITE UA (POCT) Negative Negative [facility] PH UA (POCT) 6.5 4.5 - 8.0 [facility] Protein Ql (U) Negative Negative mg/dL [facility] SPECIFIC GRAVITY UA (POCT) 1.01 1.005 - 1.030 [facility] UROBILINOGEN UA (POCT) 0.2 Normal E.U./d L [facility] Location:[facility], [address] [place] [address], [address] [facility] POINT OF CARE [facility] DBT Breast - left diagnostic for implanton 04-08-2024 IMPRESSION: There is no mammographic or sonographic evidence of malignancy. Return to annual screening mammogram is recommended. Annual mammogram will be due in 11 months. BI-RADS Category 2: Benign RISK: Based on the Tyrer-Cuzick (TC) risk assessment model, this patient has a 14.9% lifetime risk of developing breast cancer, meaning they are at average risk for developing breast cancer. However, this is only an estimate based on available history provided on the patient's questionnaire. We encourage all patients to talk with their providers about these results, further recommendations for managing breast health, and appropriate supplemental screening options if the patient has dense breast tissue. Interpreting Radiologist: Martin Leung M.D. Electronically signed on: 04/08/2024 Coin Purse Assembler: VERITO Transcribe Date/Time: Apr 08 2024 9:09A Dictated by: MARTIN LEUNG MD This examination was interpreted and the report reviewed and electronically signed by: MARTIN LEUNG MD on Apr 08 2024 9:52AM [facility] DIVISION OF RADIOLOGY * * *Final Report* * * DATE OF EXAM: Apr 08 2024 9:22AM [facility] 0628 - [facility] NICKY PÉREZ / PROCEDURE REASON: Abnormal mammogram * * * * Physician Interpretation * * * * RESULT: [address] [address] #[id number] - [facility] NICKY PÉREZ #[id number] [facility] BREAST [facility] HISTORY: Patient is 48 years old and is seen for diagnostic evaluation of abnormal mammogram in the left breast. Patient states no personal history of breast cancer. Patient states no personal history of other cancers. COMPARISON STUDIES: The present examination has been compared to prior imaging studies dated 09/24/2020 (mammogram), 02/07/2023 (mammogram) and 02/17/2024 (mammogram). MAMMOGRAM TECHNIQUE: The study was acquired using full field digital technology and interpreted from soft copy. Digital Breast Tomosynthesis (DBT) images were obtained and used to assist in the interpretation of this examination. Computer-aided detection was utilized by the radiologist in the interpretation of this examination. MAMMOGRAM FINDINGS: The breast is heterogeneously dense, which may obscure small masses. There is an asymmetry measuring 1 cm with circumscribed margins in the retroareolar region of the left breast. ectatic duct. Previous questioned architectural distortion is no longer evident. No suspicious masses, calcifications or other abnormalities are seen in the left breast. ULTRASOUND TECHNIQUE: Targeted ultrasound of the indicated area was performed. Moreno scale images were saved. ULTRASOUND FINDINGS: Ultrasound demonstrates a dilated duct in the retroareolar region of the left breast. There are no suspicious findings in the imaged area. DIVISION OF RADIOLOGY Provider, [facility] [place] - 04/08/2024 * * *Final Report* * * DATE OF EXAM: Apr 08 2024 9:22AM [facility] 0628 - [facility] DIAG W ELISA LT / PROCEDURE REASON: Abnormal mammogram * * * * Physician Interpretation * * * * RESULT: [place] [address] #[id number] - [facility] DIAG W ELISA LT #[id number] - [facility] US BREAST LTD LT HISTORY: Patient is 48 years old and is seen for diagnostic evaluation of abnormal mammogram in the left breast. Patient states no personal history of breast cancer. Patient states no personal history of other cancers. COMPARISON STUDIES: The present examination has been compared to prior imaging studies dated 09/24/2020 (mammogram), 02/07/2023 (mammogram) and 02/17/2024 (mammogram). MAMMOGRAM TECHNIQUE: The study was acquired using full field digital technology and interpreted from soft copy. Digital Breast Tomosynthesis (DBT) images were obtained and used to assist in the interpretation of this examination. Computer-aided detection was utilized by the radiologist in the interpretation of this examination. MAMMOGRAM FINDINGS: The breast is heterogeneously dense, which may obscure small masses. There is an asymmetry measuring 1 cm with circumscribed margins in the retroareolar region of the left breast. ectatic duct. Previous questioned architectural distortion is no longer evident. No suspicious masses, calcifications or other abnormalities are seen in the left breast. ULTRASOUND TECHNIQUE: Targeted ultrasound of the indicated area was performed. Moreno scale images were saved. ULTRASOUND FINDINGS: Ultrasound demonstrates a dilated duct in the retroareolar region of the left breast. There are no suspicious findings in the imaged area. IMPRESSION IMPRESSION: There is no mammographic or sonographic evidence of malignancy. Return to annual screening mammogram is recommended. Annual mammogram will be due in 11 months. BI-RADS Category 2: Benign RISK: Based on the Tyrer-Cuzick (TC) risk assessment model, this patient has a 14.9% lifetime risk of developing breast cancer, meaning they are at average risk for developing breast cancer. However, this is only an estimate based on available history provided on the patient's questionnaire. We encourage all patients to talk with their providers about these results, further recommendations for managing breast health, and appropriate supplemental screening options if the patient has dense breast tissue. Interpreting Radiologist: Martin Leung M.D. Electronically signed on: 04/08/2024 Coin Purse Assembler: VERITO Transcribe Date/Time: Apr 08 2024 9:09A Dictated by: MARTIN LEUNG MD This examination was interpreted and the report reviewed and electronically signed by: MARTIN LEUNG MD on Apr 08 2024 9:52AM EST [facility] RADHA DIAG W ELISA LTon 024 RADHA DIAG W ELISA LT * * *Final Report* * * DATE OF EXAM: Apr 08 2024 9:22AM W 0628 - RADHA DIAG W ELISA LT / PROCEDURE REASON: Abnormal mammogram * * * * Physician Interpretation * * * * RESULT: [place] [address] #[id number] - [facility] DIAG W ELISA LT #[id number] - [facility] US BREAST LTD LT HISTORY: Patient is 48 years old and is seen for diagnostic evaluation of abnormal mammogram in the left breast. Patient states no personal history of breast cancer. Patient states no personal history of other cancers. COMPARISON STUDIES: The present examination has been compared to prior imaging studies dated 09/24/2020 (mammogram), 02/07/2023 (mammogram) and 02/17/2024 (mammogram). MAMMOGRAM TECHNIQUE: The study was acquired using full field digital technology and interpreted from soft copy. Digital Breast Tomosynthesis (DBT) images were obtained and used to assist in the interpretation of this examination. Computer-aided detection was utilized by the radiologist in the interpretation of this examination. MAMMOGRAM FINDINGS: The breast is heterogeneously dense, which may obscure small masses. There is an asymmetry measuring 1 cm with circumscribed margins in the retroareolar region of the left breast. ectatic duct. Previous questioned architectural distortion is no longer evident. No suspicious masses, calcifications or other abnormalities are seen in the left breast. ULTRASOUND TECHNIQUE: Targeted ultrasound of the indicated area was performed. Moreno scale images were saved. ULTRASOUND FINDINGS: Ultrasound demonstrates a dilated duct in the retroareolar region of the left breast. There are no suspicious findings in the imaged area. IMPRESSION: There is no mammographic or sonographic evidence of malignancy. Return to annual screening mammogram is recommended. Annual mammogram will be due in 11 months. BI-RADS Category 2: Benign RISK: Based on the Tyrer-Cuzick (TC) risk assessment model, this patient has a 14.9% lifetime risk of developing breast cancer, meaning they are at average risk for developing breast cancer. However, this is only an estimate based on available history provided on the patient's questionnaire. We encourage all patients to talk with their providers about these results, further recommendations for managing breast health, and appropriate supplemental screening options if the patient has dense breast tissue. Interpreting Radiologist: Martin Leung M.D. Electronically signed on: 04/08/2024 Coin Purse Assembler: VERITO Transcribe Date/Time: Apr 08 2024 9:09A Dictated by: MARTIN LEUNG MD This examination was interpreted and the report reviewed and electronically signed by: MARTIN LEUNG MD on Apr 08 2024 9:52AM EST [id number] Normal [facility] US BREAST LTD LTon 04-08 [facility] US BREAST LTD LT * * *Final Report* * * DATE OF EXAM: Apr 08 2024 9:41AM WRU 0593 - [facility] US BREAST LTD LT / PROCEDURE REASON: Abnormal mammogram * * * * Physician Interpretation * * * * [place] [address] #[id number] - [facility] NICKY Garrido ELISA LT #[id number] - [facility] US BREAST LTD LT HISTORY: Patient is 48 years old and is seen for diagnostic evaluation of abnormal mammogram in the left breast. Patient states no personal history of breast cancer. Patient states no personal history of other cancers. COMPARISON STUDIES: The present examination has been compared to prior imaging studies dated 09/24/2020 (mammogram), 02/07/2023 (mammogram) and 02/17/2024 (mammogram). MAMMOGRAM TECHNIQUE: The study was acquired using full field digital technology and interpreted from soft copy. Digital Breast Tomosynthesis (DBT) images were obtained and used to assist in the interpretation of this examination. Computer-aided detection was utilized by the radiologist in the interpretation of this examination. MAMMOGRAM FINDINGS: The breast is heterogeneously dense, which may obscure small masses. There is an asymmetry measuring 1 cm with circumscribed margins in the retroareolar region of the left breast. ectatic duct. Previous questioned architectural distortion is no longer evident. No suspicious masses, calcifications or other abnormalities are seen in the left breast. ULTRASOUND TECHNIQUE: Targeted ultrasound of the indicated area was performed. Moreno scale images were saved. ULTRASOUND FINDINGS: Ultrasound demonstrates a dilated duct in the retroareolar region of the left breast. There are no suspicious findings in the imaged area. IMPRESSION: There is no mammographic or sonographic evidence of malignancy. Return to annual screening mammogram is recommended. Annual mammogram will be due in 11 months. BI-RADS Category 2: Benign RISK: Based on the Tyrer-Cuzick (TC) risk assessment model, this patient has a 14.9% lifetime risk of developing breast cancer, meaning they are at average risk for developing breast cancer. However, this is only an estimate based on available history provided on the patient's questionnaire. We encourage all patients to talk with their providers about these results, further recommendations for managing breast health, and appropriate supplemental screening options if the patient has dense breast tissue. Interpreting Radiologist: Martin Leung M.D. Electronically signed on: 04/08/2024 Coin Purse Assembler: VERITO Transcribe Date/Time: Apr 08 2024 9:41A Dictated by : MARTIN LEUNG MD This examination was interpreted and the report reviewed and electronically signed by: MARTIN LEUNG MD on Apr 08 2024 9:52AM EST [id number] Normal [facility] No Panel InformationOrdered By: [facility] Provider on 04-08-2024 [facility] No Panel Informationon 04-08 Radiology Study observation (narrative) [facility] US Breast - left limitedon 1 06-09-2023 IMPRESSION: There is no mammographic or sonographic evidence of malignancy. Return to annual screening mammogram is recommended. Annual mammogram will be due in 11 months. BI-RADS Category 2: Benign RISK: Based on the Tyrer-Cuzick (TC) risk assessment model, this patient has a 14.9% lifetime risk of developing breast cancer, meaning they are at average risk for developing breast cancer. However, this is only an estimate based on available history provided on the patient's questionnaire. We encourage all patients to talk with their providers about these results, further recommendations for managing breast health, and appropriate supplemental screening options if the patient has dense breast tissue. Interpreting Radiologist: Martin Leung M.D. Electronically signed on: 04/08/2024 Coin Purse Assembler: VERITO Transcribe Date/Time: Apr 08 2024 9:41A Dictated by : MARTIN LEUNG MD This examination was interpreted and the report reviewed and electronically signed by: MARTIN LEUNG MD on Apr 08 2024 9:52AM EST DIVISION OF RADIOLOGY * * *Final Report* * * DATE OF EXAM: Apr 08 2024 9:41AM U 0593 - [facility] Artify It BREAST LTD LT / PROCEDURE REASON: Abnormal mammogram * * * * Physician Interpretation * * * * [place] [address] #[id number] - [facility] DIA W ELISA LT #[id number] - [facility] US BREAST LTD LT HISTORY: Patient is 48 years old and is seen for diagnostic evaluation of abnormal mammogram in the left breast. Patient states no personal history of breast cancer. Patient states no personal history of other cancers. COMPARISON STUDIES: The present examination has been compared to prior imaging studies dated 09/24/2020 (mammogram), 02/07/2023 (mammogram) and 02/17/2024 (mammogram). MAMMOGRAM TECHNIQUE: The study was acquired using full field digital technology and interpreted from soft copy. Digital Breast Tomosynthesis (DBT) images were obtained and used to assist in the interpretation of this examination. Computer-aided detection was utilized by the radiologist in the interpretation of this examination. MAMMOGRAM FINDINGS: The breast is heterogeneously dense, which may obscure small masses. There is an asymmetry measuring 1 cm with circumscribed margins in the retroareolar region of the left breast. ectatic duct. Previous questioned architectural distortion is no longer evident. No suspicious masses, calcifications or other abnormalities are seen in the left breast. ULTRASOUND TECHNIQUE: Targeted ultrasound of the indicated area was performed. Moreno scale images were saved. ULTRASOUND FINDINGS: Ultrasound demonstrates a dilated duct in the retroareolar region of the left breast. There are no suspicious findings in the imaged area. DIVISION OF RADIOLOGY Provider, [facility] [place] - 04/08/2024 * * *Final Report* * * DATE OF EXAM: Apr 08 2024 9:41AM WRU 0593 - [facility] Artify It BREAST Stipple LT / PROCEDURE REASON: Abnormal mammogram * * * * Physician Interpretation * * * * [place] [address] #[id number] - [facility] NICKY Garrido ELISA #[id number] - [facility] Artify It BREAST Stipple HISTORY: Patient is 48 years old and is seen for diagnostic evaluation of abnormal mammogram in the left breast. Patient states no personal history of breast cancer. Patient states no personal history of other cancers. COMPARISON STUDIES: The present examination has been compared to prior imaging studies dated 09/24/2020 (mammogram), 02/07/2023 (mammogram) and 02/17/2024 (mammogram). MAMMOGRAM TECHNIQUE: The study was acquired using full field digital technology and interpreted from soft copy. Digital Breast Tomosynthesis (DBT) images were obtained and used to assist in the interpretation of this examination. Computer-aided detection was utilized by the radiologist in the interpretation of this examination. MAMMOGRAM FINDINGS: The breast is heterogeneously dense, which may obscure small masses. There is an asymmetry measuring 1 cm with circumscribed margins in the retroareolar region of the left breast. ectatic duct. Previous questioned architectural distortion is no longer evident. No suspicious masses, calcifications or other abnormalities are seen in the left breast. ULTRASOUND TECHNIQUE: Targeted ultrasound of the indicated area was performed. Moreno scale images were saved. ULTRASOUND FINDINGS: Ultrasound demonstrates a dilated duct in the retroareolar region of the left breast. There are no suspicious findings in the imaged area. IMPRESSION IMPRESSION: There is no mammographic or sonographic evidence of malignancy. Return to annual screening mammogram is recommended. Annual mammogram will be due in 11 months. BI-RADS Category 2: Benign RISK: Based on the Tyrer-Cuzick (TC) risk assessment model, this patient has a 14.9% lifetime risk of developing breast cancer, meaning they are at average risk for developing breast cancer. However, this is only an estimate based on available history provided on the patient's questionnaire. We encourage all patients to talk with their providers about these results, further recommendations for managing breast health, and appropriate supplemental screening options if the patient has dense breast tissue. Interpreting Radiologist: Martin Leung M.D. Electronically signed on: 04/08/2024 Coin Purse Assembler: VERITO Transcribe Date/Time: Apr 08 2024 9:41A Dictated by : MARTIN LEUNG MD This examination was interpreted and the report reviewed and electronically signed by: MARTIN LEUNG MD on Apr 08 2024 9:52AM EST [facility] Bacteria Ur Culton Bacteria identified Cx Nom (U) ORGANISM ID: 1 50,000-<100,000 CFU/ml Normal urogenital therese Normal [facility] Comment on above: Performed By: #### 6 30-4 ####[facility] LABCLIA [id number] [place] [address] [place] CNOVon 03-18-2024 CNOV Office Visit (OBGYWM) YASMIN EDEN ([id number]) 1975 F Date Time Provider Department 03/18/24 11:30 AM DEZ KAY OBGYWM During your visit today, we recorded the following information about you: Blood pressure Weight Last Period 126/82 97.1 kg 03/10/24 Dez Kay MD 03/18/2024 11:47 AM Signed Yasmin Eden is a 48 year old female who presents for problem visit for c/o frequent UTIs. HPI: 48 YOF presents c/o UTI symptoms, frequency. no dyuria. At end of urination feels like she isn't empty and pushes. Hasn't seen urology for this. Was on antibiotics prn. Sexually active, no change in partners, no vaginal symptoms. Menses regular. Drinks sweet tea. Some water. Some juices. No alcohol. No h/o kidney stones. Gets up twice at night to urinate, moderate amount. Some leaking of urine but not as much as before she had surgery, not a sling. OB History T3 L3 SAB0 IAB0 Ectopic0 Multiple0 Live Births0 Insurance Processing Clerk History LMP: 03/10/2024 (Exact Date), Having periods Age at Menarche: Age at First : Age at Menopause: Insurance Processing Clerk History Comments: Sexual Activity: Yes; Male Contraception: Tubal Ligation PAST MEDICAL HISTORY Diagnosis Date NEGATIVE MEDICAL HISTORY PAST SURGICAL HISTORY Procedure Laterality Date APPENDECTOMY 1996 LAPAROSCOPY SURG CHOLECYSTECTOMY 1998 Cholecystectomy, lap LIG/TRNSXJ FLP TUBE ABDL/VAG APPR UNI/BI 1999 Tubal ligation FAMILY HISTORY Problem Relation Age of Onset Coronary Artery Disease Mother TX Colon Polyps Mother Coronary Artery Disease Father TX Breast Cancer Maternal Grandmother Cancer Maternal Grandmother THROAT Social History Tobacco Use Smoking status: Every Day Current packs/day: 0.50 Average packs/day: 0.5 packs/day for 9.0 years (4.5 ttl pk-yrs) Types: Cigarettes Smokeless tobacco: Never Vaping Use Vaping status: Never Used Substance Use Topics Alcohol use: No Drug use: No Current Outpatient Medications Medication Sig SEMAGLUTIDE SUBCUTANEOUS Inject subcutaneously. omeprazole (PRILOSEC) 20 mg capsule Take 20 mg by mouth once daily. RANITIDINE HCL ORAL Take by mouth. No current facility-administere d medications for this visit. Allergies As of Date: 03/18/2024 Allergen Noted Reaction CODEINE 03/09/2005 Fully Assessed 10/08/2023 Allergies and current medication updated:Yes SENSITIVE EXAM: The sensitive examination was discussed with the Patient or Patient's Authorized Meter Repair Shop Supervisor. As applicable, any other physician, advance practice provider, medical student, or other health professional student that will be observing or involved in the sensitive examination for educational or training purposes was discussed with the Patient or Authorized Meter Repair Shop Supervisor. The Patient or Authorized Meter Repair Shop Supervisor has agreed to proceed with the sensitive examination. (Sensitive examination includes inspection and/or palpation of the breasts, pelvis, prostate and anorectal regions). EXAM: BP 126/82 Wt 214 lb (97.1kg) LMP 03/10/2024 GENERAL: pleasant, female in no apparent distress PELVIC: external genitalia normal, normal Bartholin's glands, urethra, Kaloko's glands, no vulvar lesions, no cervical lesions, physiologic discharge present, normal appearing perineal body and perianal region, cystocele 1st degree, rectocele 1st degree BIMANUAL: uterus normal size, shape and consistency, no adnexal masses, and non-tender ASSESSMENT AND PLAN: Assessment AND Plan Urinary frequency Orders: URINE CULTURE CONSULT TO URO GYNECOLOGY; Future trace blood in urine, drinks minimal water. D/w her decrease bladder irritants. Consult urogyn due to trace blood and h/o bladder sling. Treat while culture pending Dez Kay MD Allergies As of Date: 03/18/2024 Noted Allergy Reaction CODEINE 03/09/2005 Date Reviewed: 03/18/2024 Reviewed by: Dez Kay MD - Fully Assessed Reason for Visit: UTI [116] Primary Visit Diagnosis:Urinary frequency [R35.0] Order(s):UA DIP, URINE (POC) [6659412] Order #: [id number]. #:[id number] URINE CULTURE [SQURCUL] Order #: [id number] CONSULT TO URO GYNECOLOGY [2556615] Order #: [id number]: 1 FUTURE cephALEXin (KEFLEX) 500 mg capsuleTake 1 capsule by mouth four times daily for 3 days.Disp: 12 capsuleRfl: 0 phenazopyridine (PYRIDIUM) 200 mg tabletTake 1 tablet by mouth as directed. Take TID for 3 days prn bladder discomfortDisp: 30 tabletRfl: 1 Prescriptions as of 03/18/2024 - cephALEXin (KEFLEX) 500 mg capsule Take 1 capsule by mouth four times daily for 3 days. - phenazopyridine (PYRIDIUM) 200 mg tablet Take 1 tablet by mouth as directed. Take TID for 3 days prn bladder discomfort - SEMAGLUTIDE SUBCUTANEOUS Inject subcutaneously. - omeprazole (PRILOSEC) 20 mg capsule Take 20 mg by mouth once daily. (more content not included)... Normal [facility] UA DIP, URINE (POC)on 2023 BILIRUBIN UA (POCT) Negative Negative [facility] CLARITY UA (POCT) Clear [facility] COLOR UA (POCT) Yellow [facility] GLUCOSE UA (POCT) Negative Negative mg/dL [facility] Hemoglobin Ql (U) Moderate Abnormal Negative [facility] Interpretation and review of laboratory results Abnormal [facility] KETONE UA (POCT) Negative Negative mg/dL [facility] LEUKOCYTES UA (POCT) Moderate Abnormal Negative [facility] NITRITE UA (POCT) Negative Negative [facility] PH UA (POCT) 6.0 4.5 - 8.0 [facility] Protein Ql (U) Negative Negative mg/dL [facility] SPECIFIC GRAVITY UA (POCT) 1.010 1.005 - 1.030 [facility] UROBILINOGEN UA (POCT) 0.2 Normal E.U./d L [facility] Location:[facility], [address], [place], [id number] [place] [address] POINT OF CARE [facility] DBT Breast - bilateral scree pillo 02-17-2024 IMPRESSION: Finding 1: Possible architectural distortion in the lateral left breast requires additional evaluation. DIAGNOSTIC mammogram is recommended. Finding 2: Focal asymmetry in the medial left breast requires additional evaluation. A DIAGNOSTIC mammogram and possible ultrasound is recommended. BI-RADS Category 0: Incomplete: Needs Additional Imaging Evaluation RISK: Based on the Tyrer-Cuzick (TC) risk assessment model, this patient has a 20.5% lifetime risk of developing breast cancer, meaning they are at high risk for developing breast cancer. However, this is only an estimate based on available history provided on the patient's questionnaire. Because patients with a lifetime risk of 20% or greater may benefit from additional supplemental screening, we encourage a full breast clinical evaluation and comprehensive breast cancer risk assessment to guide further decision making. For more information regarding the management of high-risk patients, the following is a link to the [facility] care path [email or web address] ([email or web address] nts/?lfgjf=67558. Additionally, a referral to the [facility] Breast Clinic is also appropriate. Interpreting Radiologist: Dwight Acevedo M.D. Electronically signed on: 02/17/2024 Coin Purse Assembler: VERITO Transcribe Date/Time: Feb 17 2024 8:02A Dictated by: DWIGHT ACEVEDO MD This examination was interpreted and the report reviewed and electronically signed by: DWIGHT ACEVEDO MD on Feb 17 2024 8:59AM [facility] DIVISION OF RADIOLOGY * * *Final Report* * * DATE OF EXAM: Feb 17 2024 8:10AM [facility] 0582 - RADHA SCREENING W ELISA / PROCEDURE REASON: Breast screening * * * * Physician Interpretation * * * * RESULT: [place] [address] HISTORY: Patient is 48 years old and is seen for screening and abnormal mammogram in both breasts. The patient has no personal history of cancer. COMPARISON STUDIES: The present examination has been compared to prior imaging studies dated 09/24/2020 (mammogram) and 02/07/2023 (mammogram). MAMMOGRAM TECHNIQUE: The study was acquired using full field digital technology and interpreted from soft copy. Digital Breast Tomosynthesis (DBT) images were obtained and used to assist in the interpretation of this examination. Computer-aided detection was utilized by the radiologist in the interpretation of this examination. MAMMOGRAM FINDINGS: The breasts are heterogeneously dense, which may obscure small masses. Finding 1: There is a possible architectural distortion seen in the CC view only in the posterior depth lateral left breast. Finding 2: There is a focal asymmetry in the anterior depth medial left breast. This is best visualized on tomosynthesis CC view slice # 24 and MLO view slice # 40. No suspicious masses, calcifications or other abnormalities are seen in the right breast. DIVISION OF RADIOLOGY Provider, [facility] [place] - 02/17/2024 * * *Final Report* * * DATE OF EXAM: Feb 17 2024 8:10AM WRW 0582 - RADHA SCREENING W ELISA / PROCEDURE REASON: Breast screening * * * * Physician Interpretation * * * * RESULT: [facility] [address] [place] [address] HISTORY: Patient is 48 years old and is seen for screening and abnormal mammogram in both breasts. The patient has no personal history of cancer. COMPARISON STUDIES: The present examination has been compared to prior imaging studies dated 09/24/2020 (mammogram) and 02/07/2023 (mammogram). MAMMOGRAM TECHNIQUE: The study was acquired using full field digital technology and interpreted from soft copy. Digital Breast Tomosynthesis (DBT) images were obtained and used to assist in the interpretation of this examination. Computer-aided detection was utilized by the radiologist in the interpretation of this examination. MAMMOGRAM FINDINGS: The breasts are heterogeneously dense, which may obscure small masses. Finding 1: There is a possible architectural distortion seen in the CC view only in the posterior depth lateral left breast. Finding 2: There is a focal asymmetry in the anterior depth medial left breast. This is best visualized on tomosynthesis CC view slice # 24 and MLO view slice # 40. No suspicious masses, calcifications or other abnormalities are seen in the right breast. IMPRESSION IMPRESSION: Finding 1: Possible architectural distortion in the lateral left breast requires additional evaluation. DIAGNOSTIC mammogram is recommended. Finding 2: Focal asymmetry in the medial left breast requires additional evaluation. A DIAGNOSTIC mammogram and possible ultrasound is recommended. BI-RADS Category 0: Incomplete: Needs Additional Imaging Evaluation RISK: Based on the Tyrer-Cuzick (TC) risk assessment model, this patient has a 20.5% lifetime risk of developing breast cancer, meaning they are at high risk for developing breast cancer. However, this is only an estimate based on available history provided on the patient's questionnaire. Because patients with a lifetime risk of 20% or greater may benefit from additional supplemental screening, we encourage a full breast clinical evaluation and comprehensive breast cancer risk assessment to guide further decision making. For more information regarding the management of high-risk patients, the following is a link to the [facility] care path [email or web address]/[email or web address] nts/?olinx=97259. Additionally, a referral to the [facility] Clinic is also appropriate. Interpreting Radiologist: Dwight Acevedo M.D. Electronically signed on: 02/17/2024 Coin Purse Assembler: VERITO Transcribe Date/Time: Feb 17 2024 8:02A Dictated by: DWIGHT ACEVEDO MD This examination was interpreted and the report reviewed and electronically signed by: DWIGHT ACEVEDO MD on Feb 17 2024 8:59AM EST [facility] Radiology Study observation (narrative) [facility] DBT Breast - bilateral scree ningOrdered By: [facility] Provider on 02-17-2024 [facility] UA DIP, URINE (POC)on 2023 BILIRUBIN UA (POCT) Negative Negative [facility] CLARITY UA (POCT) Cloudy [facility] COLOR UA (POCT) Yellow [facility] GLUCOSE UA (POCT) Negative Negative mg/dL [facility] Hemoglobin Ql (U) Large Abnormal Negative [facility] Interpretation and review of laboratory results Abnormal [facility] KETONE UA (POCT) Negative [facility] LEUKOCYTES UA (POCT) Small Abnormal Negative [facility] NITRITE UA (POCT) Negative Negative [facility] PH UA (POCT) 6.0 4.5 - 8.0 [facility] Protein Ql (U) 30 mg/dL Abnormal Negative [facility] SPECIFIC GRAVITY UA (POCT) 1.015 1.005 - 1.030 [facility] UROBILINOGEN UA (POCT) 0.2 Normal E.U./d L [facility] Location:[address], [place], [place], [id number] [place] [address] POINT OF CARE [facility] ANES POSTPROC EVALon 024 ANES POSTPROC EVAL HNO ID: [id number] Author: DIOGO LIM MD Service: Anesthesiology Author Type: Anesthesiologist Type: Anesthesia Postprocedure Evaluation Filed: 05/15/2023 12:30 Note Text: POST ANESTHESIA EVALUATION NOTE : 1975 Procedure Summary Date: 05/15/23 Room / Location: [facility] Endoscopy Anesthesia Start: 1128 Anesthesia Stop: 1203 Procedure: COLONOSCOPY SCREENING Diagnosis: Scheduled Providers: Josy Barroso MD; Kt Soto APRN.CRNA; Diogo Lim MD Responsible Provider: Diogo Lim MD Anesthesia Type: MAC ASA Status: 2 Anesthesia Type: MAC Last Vitals Vitals Value Taken Time BP 129/71 05/15/23 1215 Temp 36.5 ?C (97.7 ?F) 05/15/23 1203 Pulse 70 05/15/23 1228 Resp 25 05/15/23 1228 SpO2 100 % 05/15/23 1228 Vitals shown include unfiled device data. Post Anesthesia Patient Status Patient Evaluation: bedside. Anticipated Disposition: phase 2 then home. Neurological Status: aware and responsive. Pulmonary Status: breathing comfortably on room air Airway Control: returned to baseline unsupported. Cardiovascular Status: stable. Pain Management: clinically adequate Postoperative Hydration: acceptable. Intraoperative Events: no significant anesthesia events Post Operative Nausea/Vomiting Status: no significant post operative nausea or vomiting Recommendation: continue current plan of care. Anesthesia Observations No Documentation SIGNATURE: Diogo Lim MD PATIENT NAME: Yasmin Eden DATE: May 15, 2023 TIME: 12:30 PM CSN: [id number] Normal [facility] ANES PRE-OPon 05-15-2023 ANES PRE-OP HNO ID: [id number] Author: DIOGO LIM MD Service: Anesthesiology Author Type: Anesthesiologist Type: Anesthesia Preprocedure Evaluation Filed: 05/15/2023 10:00 Note Text: ANESTHESIOLOGY DAY OF SURGERY NOTE : 1975 Procedure Information Date/Time: 05/15/23 1245 Scheduled providers: Josy Barroso MD; Kt Soto APRN.CRNA; Diogo Lim MD Procedure: COLONOSCOPY SCREENING Location: [facility] Endoscopy Estimated body mass index is 42.43 kg/m? as calculated from the following: Height as of 03/11/23: 157.5 cm (5' 2). Weight as of 03/11/23: 105.2 kg (232 lb). Most recent hematocrit and potassium results: Hematocrit 40.7 03/05/2023 Potassium 4.0 02/14/2023 Relevant Problems No relevant active problems I - PHYSICAL EVALUATION AIRWAY Patient intubated: No. Tracheostomy tube not present Mallampati: II. TM distance: >3 FB. Neck ROM: full ROM without neurological symptoms. Mouth opening: adequate. Short neck: no. Thick neck: no DENTAL Normal dental observations. Dental findings: teeth intact and poor dentition. Additional exam findings: yes. CARDIOVASCULAR Normal cardiovascular observations. Rhythm: regular Rate: normal PULMONARY Normal pulmonary observations. Breath sounds clear to auscultation. II - ANESTHESIA PLAN ASA Score: 2 Anesthetic Plan: MAC The patient is a current smoker. NPO Status: adequate Beta Gopal Monitoring Plan Monitoring plan: standard ASA. Post Procedure Analgesic Plan Postoperative analgesic plan: parenteral or oral opioids and multimodal analgesia. Informed Consent Anesthetic risks, benefits, alternatives, personnel and consent discussed: yes. Patient / Responsible Alliance Party agrees to proceed: yes Patient / Surrogate agrees to blood products: blood products not planned DNR status not reviewed with patient and/or family prior to surgery. Significant changes in the patient condition since the History and Physical, not otherwise documented in primary service progress note: no. Potential Anesthesia issues that may suggest increased risk of complications or contraindication to planned procedure: none. Discussed the possibility of lip / dental damage: yes Vitals Value Taken Time BP 131/63 05/15/23 0958 Pulse 69 05/15/23 0958 Resp 18 05/15/23 0958 Temp 36.5 ?C (97.7 ?F) 05/15/23 0958 SpO2 95 % 05/15/23 0958 Outpatient Medications as of 05/15/2023 Medication Sig - RANITIDINE HCL ORAL Take by mouth. Facility-Administere d Medications as of 05/15/2023 Medication Dose Route Frequency - lactated ringers iv infusion 75 mL/hr INTRAVENOUS CONTINUOUS I have interviewed and examined the patient. I have reviewed the medical record and/or the pre-anesthesia evaluation, pertinent labs, and test results. This contains updated information obtained within 48 hours of Surgery/Procedure. SIGNATURE: Diogo Lim MD PATIENT NAME: Yasmin Eden DATE: May 15, 2023 TIME: 10:00 AM CSN: [id number] Normal [facility] Colonoscopyon 05-15-[address] [facility] Gastrointestinal Endoscopy Patient Name: Yasmin Eden Procedure Date: 05/15/2023 11:32 AM Date of : 1975 Admit Type: Outpatient Age: 48 Room: [facility] Room A Gender: Female Note Status: Contract Technician Override Attending MD: Josy Barroso MD, [id number] Procedure: Colonoscopy Indications: Screening for colorectal malignant neoplasm Providers: Josy Barroso MD Patient Profile: Refer to note in patient chart for documentation of history and physical. Last Colonoscopy: none. The patient's first colonoscopy is today. Referring Physician: Medicines: See the Anesthesia note for documentation of the administered medications Complications: No immediate complications. Requesting Provider: Procedure: Pre-Anesthesia Assessment: - Monitored anesthesia care under the supervision of a HOSPICE COORDINATOR was determined to be medically necessary for this procedure based on review of the patient's medical history, medications, and prior anesthesia history. After I obtained informed consent, the scope was passed under direct vision. Throughout the procedure, the patient's blood pressure, pulse, and oxygen saturations were monitored continuously. The Colonoscope was introduced through the anus and advanced to the cecum, identified by the appendiceal orifice, IC valve and transillumination. The colonoscopy was performed without difficulty. The patient tolerated the procedure well. The quality of the bowel preparation was suboptimal. There was still retained fecal material which required lavage and aspiration to visualize the bahena adequately. This was done, but took some time, however, the bahena were visualized adequately. The appendiceal orifice and the rectum were photographed. Scope Withdrawal Time: 0 hours 10 minutes 16 seconds Moderate Sedation: MAC anesthesia was administered by the anesthesia team. Total Procedure Duration: 0 hours 20 minutes 38 seconds Findings: The perianal and digital rectal examinations were normal. Non-bleeding internal hemorrhoids were found. A few small-mouthed diverticula were found in the sigmoid colon. Three sessile polyps were found in the hepatic flexure. The polyps were 2 to 12 mm in size. These polyps were removed with a cold snare. Resection and retrieval were complete. Verification of patient identification for the specimen was done by the nurse. To close a defect after polypectomy of the largest polyp (about 1 cm and with visible vessel) - two hemostatic clips were successfully placed (MR conditional). 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 There was no bleeding at the end of the procedure. A 7 to 10 mm polyp was found in the transverse colon. The polyp was sessile. The polyp was removed with a cold snare. Resection and retrieval were complete. Verification of patient identification for the specimen was done by the nurse. Estimated blood loss was minimal. Impression: - Non-bleeding internal hemorrhoids. - Diverticulosis in the sigmoid colon. - Three 2 to 12 mm polyps at the hepatic flexure, removed with a cold snare. Resected and retrieved. Clips (MR conditional) were placed. 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 - One 7 to 10 mm polyp in the transverse colon, removed with a cold snare. Resected and retrieved. Recommendation: - Repeat colonoscopy in 3 years for surveillance for history of colon polyps. - Return to primary care physician for pathology results and as per needed - Patient has a contact number available for emergencies. The signs and symptoms of potential delayed complications were discussed with the patient. Return to normal activities tomorrow. Written discharge instructions were provided to the patient. - Continue present medications. - Resume previous diet. Procedure Code(s): --- Professional --- 40471, Colonoscopy, flexible; with removal of tumor(s), polyp(s), or other lesion(s) by snare technique Diagnosis Code(s): --- Professional --- K57.30, Diverticulosis of large intestine without perforation or abscess without bleeding K64.8, Other hemorrhoids Z12.11, Encounter for screening for malignant neoplasm of colon D12.3, Benign neoplasm of transverse colon (hepatic flexure or splenic flexure) CPT copyright 2020 [employer]. All rights reserved. The codes documented in this report are preliminary and upon internal revenue service agent review may be revised to meet current compliance requirements. Attending Participation: I personally performed the entire procedure. Scope In: 11:35:52 AM Scope Out: 11:56:30 AM MD Josy Dyson MD 05/15/2023 12:00:56 PM This report has been signed electronically by Josy Barroso MD Number of Addenda: 0 Note Initiated On: 05/15/2023 11:32 AM Estimated Blood Loss: Estimated blood loss was minimal. Normal [facility] HISTORY PHYSICALon HISTORY PHYSICAL HNO ID: [id number] Author: JOSY BARROSO MD Service: General Surgery Author Type: Physician Type: H&P Filed: 05/15/2023 11:30 Note Text: Yasmin Eden is a 47 year old female who to discuss colonoscopy.she has history of no colonic abnormalities and presents for screening.Patient has not had previous colonoscopy . The patient has no gastointestinal symptoms Family History: Colon polyps in mother PAST MEDICAL HISTORY PAST MEDICAL HISTORY Diagnosis Date NEGATIVE MEDICAL HISTORY PAST SURGICAL HISTORY PAST SURGICAL HISTORY Procedure Laterality Date APPENDECTOMY 1996 LAPAROSCOPY SURG CHOLECYSTECTOMY 1998 Cholecystectomy, lap LIG/TRNSXJ FLP TUBE ABDL/VAG APPR UNI/BI 1999 Tubal ligation FAMILY HISTORY FAMILY HISTORY Problem Relation Age of Onset Coronary Artery Disease Mother [place] Colon Polyps Mother Coronary Artery Disease Father [place] Breast Cancer Maternal Grandmother Cancer Maternal Grandmother THROAT CURRENT MEDICATIONS: CURRENT MEDICATIONS RANITIDINE HCL ORAL Take by mouth. CURRENT ALLERGIES: ALLERGIES ALLERGIES Allergen Reactions Codeine SOCIAL HISTORY Social History Tobacco Use Smoking status: Every Day Packs/day: 0.50 Years: 9.00 Additional pack years: 0.00 Total pack years: 4.50 Types: Cigarettes Smokeless tobacco: Never Vaping Use Vaping Use: Never used Substance Use Topics Alcohol use: No Drug use: No ROS Denies fevers Denies chest pain Denies shortness of breath Physical ExamBP 125/96 Pulse 80 Ht 157.5 cm (5' 2) Wt 105.2 kg (232 lb) LMP 12/05/2022 (Within Days) BMI 42.43 kg/m? BP 125/96 Pulse 80 Ht 157.5 cm (5' 2) Wt 105.2 kg (232 lb) LMP 12/05/2022 (Within Days) BMI 42.43 kg/m? Body mass index is 42.43 kg/m?. Head - Normocephalic. EOM intact with sclera clear. Mouth with mucus membranes moist. Neck - supple with no jugular venous distention noted. Trachea is midline. Lungs - normal breath sounds, normal respiratory motion, no adventitial sounds noted. Heart - normal heart sounds. Regular rate. Abdomen - soft and benign. Extremities - no pitting edema noted. Skin - Normal skin integrity. Neurological - non focal Psych - calm and appropriate Impression: screening for colon cancer, Discussion/Plan/Hayes mmendations: I have discussed the above with the patient. I have offered colonoscopy, possible biopsies I have explained the procedure to the patient. I have counseled the patient as to the risks of the procedure, including but not limited to: infection, bleeding, injury to any intrabdominal organs such as liver/spleen, perforation of the GI tract, inability to complete the procedure, complications of anesthesia, etc. - the patient understands. The patient wishes to proceed. I have answered all questions to the patient?s satisfaction and the patient has no further questions. . Normal [facility] SURGICAL PATHOLOGYon 024 CASE REPORT [facility] Comment on above: Order Comment: Speci men Type: TISSUE SPECIMEN Ordering Facility: [facility] Address: [address] [place] [address] Result Comment: Surg [facility] Pathology Report Case: [id number] Authorizing Provider: Josy Barroso MD Collected: 05/15/2023 11:46 AM Ordering Location: [facility] Endoscopy Received: 05/15/2023 12:33 PM Pathologist: Macario Foley MD Specimens: A) - HEPATIC FLEXURE POLYP, multiple polyps B) - TRANSVERSE COLON POLYP Performed By: #### S #### [facility] CLIA [id number] [address] [place] [address] FINAL DIAGNOSIS [facility] Comment on above: Order Comment: Speci men Type: TISSUE SPECIMEN Ordering Facility: [facility] Address: [address] [place] [address] Result Comment: A. H epatic flexure polyp, biopsy: - Tubular adenoma. B. Transverse colon polyp, biopsy: - Tubular adenoma. EDUARDO/ni 05/16/2023 Performed By: #### S #### [facility] CLIA [id number] [address] [place] [address] [place] FINAL PERFORMING LAB [facility] Comment on above: Order Comment: Speci men Type: TISSUE SPECIMEN Ordering Facility: [facility] Address: [address] [place] [address] Result Comment: Diag nostic interpretation performed at [facility], [address] [place] [address] CLIA# [id number] Medical Assistant Ob Gyn: Allen Tineo M.D. Performed By: #### S #### [facility] CLIA [id number] [address] [place] [address] [place] GROSS DESCRIPTION Normal [facility] Comment on above: Order Comment: Speci men Type: TISSUE SPECIMEN Ordering Facility: [facility] Address: [address] [place] [address] Result Comment: A. H EPATIC FLEXURE POLYP Received in formalin are multiple pieces of pulido, soft tissue aggregating to 0.8 x 0.3 x 0.3 cm. Totally submitted in one cassette. B. TRANSVERSE COLON POLYP Received in formalin are multiple pulido polypoid segments of tissue ranging in size 0.8 x 0.6 x 0.4 cm to 0.5 x 0.3 x 0.3 cm. No stalks are present. The lines of resection are noted. The specimens are bisected and totally submitted in one cassette. May 15, 2023 5:49 PM Gross examination performed at [facility], [address] [place] [address] Performed By: #### S #### [facility] CLIA [id number] [address] [place] [address] [place] RADHA SCREENINGon 02-07-2023 [facility] BACTERIAL VAGINOSIS NAATon 0 12-20-2022 Lactobacillus crispatus+gasseri+graham enii + Gardnerella vaginalis + Atopobium vaginae rRNA BRANDON+probe Ql (Vag fld) Negative Negative for bacterial vaginosis [facility] C. trachomatis+N. gonorrhoea e DNA BRANDON+probe Ql (Unsp spec)on 12-20-2022 C. trachomatis rRNA BRANDON+probe Ql (Unsp spec) Negative Negative for Chlamydia trachomatis by amplificaton [facility] N. gonorrhoeae rRNA BRANDON+probe Ql (Unsp spec) Negative Negative for Neisseria gonorrhoeae by amplification [facility] KATHLEEN/TRICHOMONAS NAATon 0 12-20-2022 C. glabrata RNA BRANDON+probe Ql (Vag fld) Negative Negative for Kathleen glabrata [facility] Kathleen sp DNA BRANDON+probe Ql (Vag fld) Negative Negative for Kathleen species [facility] T. vaginalis DNA BRANDON+probe Ql (Unsp spec) Negative Negative for Trichomonas vaginalis by amplification [facility] UA DIP, URINE (POC)on 2022 BILIRUBIN UA (POCT) Negative Negative [facility] CLARITY UA (POCT) Clear [facility] COLOR UA (POCT) Yellow [facility] GLUCOSE UA (POCT) Negative Negative mg/dL [facility] HEMOGLOBIN/BLOOD UA (POCT) Negative Negative [facility] KETONE UA (POCT) Negative Negative mg/dL [facility] LEUKOCYTES UA (POCT) Trace Abnormal Negative [facility] NITRITE UA (POCT) Negative Negative [facility] PH UA (POCT) 5.5 4.5 - 8.0 [facility] Protein Ql (U) Negative Negative mg/dL [facility] SPECIFIC GRAVITY UA (POCT) >=1.030 1.005 - 1.030 [facility] UROBILINOGEN UA (POCT) 1.0 E.U./dL Normal E.U./ dL [facility] Breast Limited Unilateralon 07-19-2021 Breast Limited Unilateral [facility] [address] [place] [id number] Breast Limited Unilateral MR#: [id number] Acct: [id number] Name: YASMIN EDEN Rep #: [id number] : 1975 F 46 From: Aleksander Sewell MD PCP: Care Physician,No Primary Status: REG CLI Study: Breast Limited Unilateral Date of Exam: Exam# [id number] Ordering Dr: Abel Presley MD STUDY: ULTRASOUND BREAST - RIGHT REASON FOR EXAM: Female, 46 years old. Palpable mass TECHNIQUE: Axial and longitudinal images of the RIGHT breast were performed with a high resolution ultrasound transducer. # OF IMAGES: 22 COMPARISON: Diagnostic mammogram earlier today FINDINGS: RIGHT Breast: Heterogeneous background echotexture. Multiple longitudinal and transverse ultrasound images of the lower outer quadrant of the right breast fail to demonstrate a discrete solid or cystic mass most consistent with normal breast parenchyma.: US/Breast Limited Unilateral IMPRESSION: Normal diagnostic mammogram and right breast ultrasound. However, biopsy of any palpable abnormality should be performed if clinically indicated. ASSESSMENT CATEGORY: BIRADS Category 1: Negative. A letter regarding these results will be sent to the patient by the facility within 30 days. Electronically Signed: Aleksander Sewell MD at 16:21 EDT , CC: Dr. Abel Presley MD; No Primary Care Physician Coin Purse Assembler: Signed Normal [facility] DIAG MAMM W/CAD, BILATon DIAG MAMM W/CAD, [facility] Services [address] [place] [address] DIAG MAMM W/CAD, BILAT MR#: [id number] Acct: [id number] Name: YASMIN EDEN Rep #: [id number] : 1975 F 46 From: Aleksander Sewell MD PCP: Care Physician,No Primary Status: REG CLI Study: DIAG MAMM W/CAD, BILAT Date of Exam: 07/19/21 Exam# [id number] Ordering Dr: Abel Presley MD MAMMOGRAPHY - BILATERAL DIAGNOSTIC REASON FOR EXAM: Female, 46 years old. LUMP RIGHT BREAST PERTINENT HISTORY: Non-contributory. TECHNIQUE: Digital examination. Mediolateral oblique (MLO) and craniocaudad (CC) views of both breasts were obtained. CAD: CAD was performed on this study. COMPARISON: 09/24/2020 FINDINGS: Breast Composition: There are scattered areas of fibroglandular density. There are no dominant masses or suspicious calcifications. No other significant abnormalities are identified. BI/DIAG MAMM W/CAD, BILAT IMPRESSION: Stable bilateral diagnostic mammogram. Ultrasound of the palpable abnormality will be obtained. ASSESSMENT CATEGORY: BIRADS Category 0: Incomplete. Need additional imaging evaluation. A letter regarding these results will be sent to the patient by the facility within 30 days. FOLLOW UP RECOMMENDATION: Ultrasound Recommended. (I) Approximately 10% of breast cancers are not detected by mammography. A normal mammogram should not delay biopsy of a clinically suspicious abnormality. Electronically Signed: Aleksander Sewell MD at 15:17 EDT , CC: Dr. Abel Presley MD; No Primary Care Physician Coin Purse Assembler: Signed [facility] LAB TEST Normal [facility] Comment on above: Order Comment: [id number] VAGINITIS PLUS SWAB Result Comment: TEST RESULT LIMITS NuSwab Vaginitis Plus (VG+) Bacterial Vaginosis, BRANDON Atopobium vaginae High - 2 Abnormal Score BVAB 2 High - 2 Abnormal Score Megasphaera 1 High - 2 Abnormal Score Total Score, add three scores Calculate total score by adding the 3 individual bacterial vaginosis (BV) marker scores together. Total score is interpreted as follows: Total score 0-1: Indicates the absence of BV. Total score 2: Indeterminate for BV. Additional clinical data should be evaluated to establish a diagnosis. Total score 3-6: Indicates the presence of BV. This test was developed and its performance characteristics determined by [employer]. It has not been cleared or approved by the Food and Drug Administration. Kathleen albicans, BRANDON A, Negative Negative Kathleen glabrata, BRANDON A, Negative Negative Trich vag by BRANDON Negative Negative Chlamydia trachomatis, BRANDON Negative Negative Neisseria gonorrhoeae, BRANDON Negative Negative Comments A: This test was developed and its performance characteristics determined by [employer]. It has not been cleared or approved by the Food and Drug Administration. TESTING PERFORMED AT [facility]. ORIGINAL REPORT ON FILE IN LAB CONTAINS ADDITIONAL TEST SITE INFORMATION. Performed By: #### L [id number] #### [facility] [address] [place], [address] Urine Cultureon 07-13-2021 [facility] Below infection level. Mixed Gram Positive Organisms Grant Count <1000 Normal [facility] Comment on above: Performed By: #### M 100.2200 #### [facility] [address] [place], [place], [id number] Vital Signs Date Time Vital Sign Value Performing Clinician Anai ministerio 12-31-2024 15:37-0400 Body height 157.5 cm Zaina Tavares APRN.CNM Work Phone: [facility] 12-31-2024 15:37-0400 Body mass index (BMI) [Ratio] 42.91 kg/m2 Zaina Tavares APRN.CNM Work Phone: [facility] 12-31-2024 15:37-0400 Body weight 106.41 kg Zaina Tavares APRN.CNM Work Phone: [facility] 12-31-2024 15:37-0400 Diastolic blood pressure 80 mm[Hg] Zaina Tavares LICENSED ARCHITECT.CNM Work Phone: [facility] 12-31-2024 15:37-0400 Systolic blood pressure 128 mm[Hg] Zaina Tavares LICENSED ARCHITECT.CNM Work Phone: [facility] 06-16-2024 13:23-0500 Body mass index (BMI) [Ratio] 40.79 kg/m2 Anisa Owens MD Work Phone: [facility] 06-16-2024 13:23-0500 Body weight 101.15 kg Anisa Owens MD Work Phone: [facility] 06-16-2024 13:23-0500 Diastolic blood pressure 82 mm[Hg] Anisa Owens MD Work Phone: [facility] 06-16-2024 13:23-0500 Systolic blood pressure 148 mm[Hg] Anisa Owens MD Work Phone: [facility] 03-18-2024 11:22-0500 Body mass index (BMI) [Ratio] 39.14 kg/m2 Dez Kay MD Work Phone: [facility] 03-18-2024 11:22-0500 Body weight 97.07 kg Dez Kay MD Work Phone: [facility] 03-18-2024 11:22-0500 Diastolic blood pressure 82 mm[Hg] Dez Kay MD Work Phone: [facility] 03-18-2024 11:22-0500 Systolic blood pressure 126 mm[Hg] Dez Kay MD Work Phone: [facility] 10-08-2023 09:55-0400 Body mass index (BMI) [Ratio] 40.2 kg/m2 Risa Praisler-Wood LICENSED ARCHITECT.TICKET BROKER Work Phone: [facility] 10-08-2023 09:55-0400 Body temperature 98.01 [degF] Risa Praisler-Wood LICENSED ARCHITECT.TICKET BROKER Work Phone: [facility] 10-08-2023 09:55-0400 Body weight 99.7 kg Risa Praisler-Wood LICENSED ARCHITECT.TICKET BROKER Work Phone: [facility] 10-08-2023 09:55-0400 Diastolic blood pressure 80 mm[Hg] Risa Praisler-Wood LICENSED ARCHITECT.TICKET BROKER Work Phone: [facility] 10-08-2023 09:55-0400 Heart rate 100 /min Risa Praisler-Wood LICENSED ARCHITECT.TICKET BROKER Work Phone: [facility] 10-08-2023 09:55-0400 Respiratory rate 16 /min Risa Praisler-Wood LICENSED ARCHITECT.TICKET BROKER Work Phone: [facility] 10-08-2023 09:55-0400 SaO2% (BldA) [Mass fraction] 95 % Risa Praisler-Wood LICENSED ARCHITECT.TICKET BROKER Work Phone: [facility] 10-08-2023 09:55-0400 Systolic blood pressure 124 mm[Hg] Risa P[place]ler-Wood LICENSED ARCHITECT.TICKET BROKER Work Phone: [facility] 06-14-2023 13:51-0500 Body weight 107.5 kg Zaina Plotts LICENSED ARCHITECT.CNM Work Phone: [facility] 06-14-2023 13:51-0500 Diastolic blood pressure 70 mm[Hg] Zaina Plotts LICENSED ARCHITECT.CNM Work Phone: [facility] 06-14-2023 13:51-0500 Systolic blood pressure 108 mm[Hg] Zaina Plotts LICENSED ARCHITECT.CNM Work Phone: [facility] 03-11-2023 09:30-0500 Body height 157.5 cm Cleopatra Cortés MD Work Phone: [facility] 03-11-2023 09:30-0500 Body weight 105.23 kg Cleopatra Cortés MD Work Phone: [facility] 03-11-2023 09:30-0500 Diastolic blood pressure 96 mm[Hg] Cleopatra Cortés MD Work Phone: [facility] 03-11-2023 09:30-0500 Heart rate 80 /min Cleopatra Cortés MD Work Phone: [facility] 03-11-2023 09:30-0500 Systolic blood pressure 125 mm[Hg] Cleopatra Cortés MD Work Phone: [facility] 12-19-2022 13:58-0400 Body height 157.5 cm Zaina Plotts LICENSED ARCHITECT.CNM Work Phone: [facility] 12-19-2022 13:58-0400 Body weight 105.23 kg Zaina Tavares LICENSED ARCHITECT.CNM Work Phone: [facility] 12-19-2022 13:58-0400 Diastolic blood pressure 72 mm[Hg] Zaina Brittts LICENSED ARCHITECT.CNM Work Phone: [facility] 12-19-2022 13:58-0400 Systolic blood pressure 118 mm[Hg] Zaina Tavares LICENSED ARCHITECT.CNM Work Phone: [facility] 05-15-2022 11:16-0500 Body temperature 98.4 [degF] Mera Athy PA-C Work Phone: [facility] 05-15-2022 11:16-0500 Body weight 95.98 kg Mera Athy PA-C Work Phone: [facility] 05-15-2022 11:16-0500 Diastolic blood pressure 68 mm[Hg] Mera Athy PA-C Work Phone: [facility] 05-15-2022 11:16-0500 Heart rate 84 /min Mera Athy PA-C Work Phone: [facility] 05-15-2022 11:16-0500 Respiratory rate 18 /min Mera Athy PA-C Work Phone: [facility] 05-15-2022 11:16-0500 Systolic blood pressure 102 mm[Hg] Mera Athy PA-C Work Phone: [facility] Encounters Encounter Date Encounter Type Care Provider Facility Start: 02-26-2025 End: 02-26-2025 ambulatory [facility] Facility[facility] Start: 02-25-2025 End: 02-25-2025 ambulatory [facility] Facility[facility] Start: 12-31-2024 End: 12-31-2024 Patient encounter procedure Zaina Tavares LICENSED ARCHITECT.CNM Work Phone: OB/Gynecology Comment on above: Encounter for gyneco logical examination (general) (routine) without abnormal findings (Primary Dx); Encounter for screening mammogram for breast cancer; Recurrent UTI; Irregular periods; Perimenopausal Start: 12-31-2024 End: 12-31-2024 Patient encounter status Zaina Tavares APRN.CNM Work Phone: [facility] Start: 12-31-2024 End: 12-31-2024 ambulatory [facility] Facility[facility] Start: 12-31-2024 Encounter for gynecological examination (general) (routine) without abnormal findings ZAINA TAVARES [facility] Start: 06-17-2024 End: 08-17-2024 Follow-up encounter Bessie Joy APRN.TICKET BROKER Work Phone: OB/Gynecology Start: 06-16-2024 End: 06-16-2024 [facility] Facility:[facility] Start: 06-16-2024 End: 06-16-2024 Patient encounter procedure Anisa Owens MD Work Phone: OB/Gynecology Comment on above: Vaginal irritation ( Primary Dx); Vulvar itching; Dysuria Start: 04-08-2024 End: 04-08-2024 [facility] Facility:[facility] Start: 04-08-2024 End: 04-08-2024 Subsequent hospital visit by physician Diagnostic Mammo [facility] Comment on above: Abnormal mammogram [ R92.8] Start: 03-18-2024 End: 03-18-2024 [facility] Facility:[facility] Start: 03-18-2024 End: 03-18-2024 Patient encounter procedure Dez Kay MD Work Phone: OB/Gynecology Comment on above: Urinary frequency (P rimary Dx) Start: 03-16-2024 End: 03-18-2024 ambulatory Zaina Tavares APRN.CNM Work Phone: OB/Gynecology Comment on above: Need apt richard uti-bl adder infection Start: 02-17-2024 End: 02-17-2024 Telephone encounter Joanie Luna APRN.TICKET BROKER Work Phone: OB/Gynecology Comment on above: Orders Start: 02-17-2024 End: 02-17-2024 Subsequent hospital visit by physician Screen Mammo [facility] Comment on above: Breast screening [Z1 2.39] Start: 10-08-2023 End: 10-08-2023 Patient encounter procedure Risa Webb APRN.CNP Work Phone: [facility] Comment on above: Urinary frequency (P rimary Dx); Acute cystitis with hematuria; Dysuria Start: 06-14-2023 End: 06-14-2023 Patient encounter procedure Zaina Tavares LICENSED ARCHITECT.CNM Work Phone: OB/Gynecology Comment on above: Vaginal odor (Primar y Dx) Start: 05-15-2023 ambulatory CLEOPATRA CORTÉS [facility] ty:[facility] Start: 03-11-2023 End: 03-11-2023 Patient encounter procedure Cleopatra Cortés MD Work Phone: General Surgery Comment on above: Encounter for screen ing colonoscopy Start: 02-15-2023 Documentation procedure Mammog bina Coordinator [facility] Start: 02-15-2023 Letter encounter Mammography Coordinator [facility] Department Start: 02-13-2023 Telephone encounter Zaina quijano LICENSED ARCHITECT.CNM Work Phone: OB/Gynecology Comment on above: Orders Start: 02-08-2023 Documentation procedure Mammog bina Coordinator [facility] Start: 02-08-2023 Letter encounter Mammography Coordinator [facility] Department Start: 02-07-2023 End: 02-07-2023 Subsequent hospital visit by physician Screen Mammo [facility] Comment on above: Encounter for screen ing mammogram for breast cancer [Z12.31] Start: 02-05-2023 End: 02-05-2023 Patient encounter procedure Mera Austin PA-C Work Phone: [facility] Comment on above: Near syncope (Primar y Dx) Start: 02-05-2023 ambulatory Zaina haile LICENSED ARCHITECT.CNM Work Phone: OB/Gynecology Comment on above: Need primary dr Start: 12-20-2022 ambulatory Zaina haile LICENSED ARCHITECT.CNM Work Phone: OB/Gynecology Comment on above: Awful metal taste in my mouth Start: 12-19-2022 End: 12-19-2022 Patient encounter procedure Zaina Tavares LICENSED ARCHITECT.CNM Work Phone: OB/Gynecology Comment on above: Vaginal yeast infect ion (Primary Dx); Encounter for gynecological examination (general) (routine) without abnormal findings; Screening for cervical cancer; Encounter for screening for human papillomavirus (HPV); Encounter for screening mammogram for breast cancer; Screening for STD (sexually transmitted disease) Start: 12-19-2022 End: 12-19-2022 Patient encounter status Zaina Tavares LICENSED ARCHITECT.CNM Work Phone: [facility] Work Phone: Start: 05-15-2022 End: 05-15-2022 Patient encounter procedure Mera Austin PA-C Work Phone: [facility] Comment on above: Low back pain, unspe cified back pain laterality, unspecified chronicity, unspecified whether sciatica present (Primary Dx); History of peptic ulcer Procedures Date Procedure Procedure Detail Performing Clinician Start: 02-26-2025 Antibody screen KRISTINE HERNANDEZ Comment on above: Order Comment: Speci men Type: BLOOD SPECIMENOrdering Facility: [facility] Address: [address] [place] [address] Performed By: #### T SPN ####[facility] LABCLIA [id number] [place] [address] [place] Start: 06-16-2024 Urnls dip stick/tabl et rgnt auto w/o microscopy Anisa Owens MD Work Phone: Start: 04-08-2024 Us breast uni real t sulema with image limited Joanie [place] LICENSED ARCHITECT.TICKET BROKER Work Phone: Start: 04-08-2024 Digital breast tomos ynthesis unilateral Joanie [place] LICENSED ARCHITECT.TICKET BROKER Work Phone: Start: 03-18-2024 Urnls dip stick/tabl et rgnt auto w/o microscopy Dez Kay MD Work Phone: Start: 02-17-2024 Screening digital br east tomosynthesis bi Radha Kurt LICENSED ARCHITECT.CNM Work Phone: Start: 10-08-2023 Urnls dip stick/tabl et rgnt auto w/o microscopy Risapablo Webb LICENSED ARCHITECT.TICKET BROKER Work Phone: Start: 05-15-2023 Colonoscopy Zaina quijano LICENSED ARCHITECT.CNM Work Phone: Start: 02-14-2023 Lipid 1996 panel - S marco a or Plasma Mammography Coordinator Start: 02-07-2023 Screening mammograph y bi 2-view breast inc cad Zaina Tavares LICENSED ARCHITECT.CNM Work Phone: Start: 12-19-2022 BACTERIAL VAGINOSIS NAAT Zaina Tavares LICENSED ARCHITECT.CNM Work Phone: Start: 12-19-2022 Iadna chlamydia trac homatis amplified probe tq Zaina Tavares LICENSED ARCHITECT.CNM Work Phone: Start: 05-15-2022 Urnls dip stick/tabl et rgnt auto w/o microscopy Mera Austin PA-C Work Phone: Start: 11-21-2013 Lipid 1996 panel - S marco a or Plasma Mera Austin PA-C Work Phone: Plan of Treatment Date Care Activity Detail Author Start: 02-15-2028 Lipid 1996 panel - Serum or Plasma Lipid Screening [facility] Start: 02-15-2028 Lipid panel Lipid Screening [facility] Start: 12-20-2027 HPV Testing HPV Testing [facility] Start: 12-20-2027 Pap Testing Pap Testing [facility] Start: 12-20-2027 Screening for malign ant neoplasm of cervix [facility] Start: 02-14-2026 Diabetes Screening Diabetes Screenin g [facility] Start: 04-21-2025 End: 04-21-2025 Patient encounter procedure 04/21/2025 4:00 PM EST Appointment Mammogram [address] [place] [address] Dx: Encounter for screening mammogram for breast cancer [Z12.31] Mammogram Comment on above: Dx: Encounter for sc reening mammogram for breast cancer [Z12.31] Start: 02-16-2025 Screening for malign ant neoplasm of breast Mammogram Screening [facility] Start: 01-04-2025 Influenza vaccination Influenza Vacc ine (#1) [facility] Start: 05-15-2024 Screening for malign ant neoplasm of colon [facility] Start: 04-08-2024 End: 04-08-2024 Patient encounter procedure 04/08/2024 9:00 AM EST Appointment Mammogram [address] [place] [address] Needs US scheduled.. Comp- CB LEFT AND ULTRASOUND LEFT Mammogram Comment on above: Needs US scheduled.. Comp- CB LEFT AND ULTRASOUND LEFT Start: 03-31-2024 End: 03-31-2024 Patient encounter procedure 03/31/2024 3:30 PM EST Office Visit OB/Gynecology [address] [place] [address] Zaina Tavares APRN.CNM [address] [place] [address] Anual OB/Gynecology Comment on above: Anual Start: 03-03-2024 End: 03-03-2024 Patient encounter procedure 03/03/2024 4:00 PM EDT Office Visit OB/Gynecology [address] [place] [address] Zaina Tavares APRN.CNM [address] [place] [address] An[facility] OB/Gynecology Comment on above: Anual Start: 02-08-2024 Mammography Mammogram Screening [facility] Start: 02-08-2024 Screening for malign ant neoplasm of breast Mammogram Screening [facility] Start: 01-05-2024 Covid-19 Vaccine ( season) Covid-19 Vaccine () [facility] Start: 01-05-2024 Influenza vaccination C [facility] Start: 05-06-2023 Behavioral Health Screening Behavioral Health Screening [facility] Start: 05-06-2023 [facility] Start: 01-04-2023 Covid-19 Vaccine ( season) Covid-19 Vaccine ( season) [facility] Start: 01-04-2023 Influenza vaccination C [facility] Start: 05-06-2022 [facility] Start: 01-04-2022 Influenza vaccination INFLUENZA (#1) [facility] Start: 06-26-2021 Urine microalbumin profile [facility] Start: 2021 COLOGUARD (FIT-DNA) COLOGUARD (FIT-D NA) [facility] Start: 2021 Colonoscopy COLONOSCOPY [facility] Start: 2021 COLORECTAL CANCER SCREENING COLORECTAL CANCER SCREENING [facility] Start: [address] COLONOGRAPHY [facility] Start: 2021 DIABETES SCREEN DIABETES SCREEN [facility] Start: 2021 Diabetes Screening Diabetes Screenin g [facility] Start: 2021 FECAL OCCULT BLOOD FECAL OCCULT BLOO D [facility] Start: 2021 Lipid 1996 panel - Serum or Plasma Lipid Screening [facility] Start: 2021 LIPID SCREEN LIPID SCREEN [facility] Start: 2021 Screening for malign ant neoplasm of colon [facility] Start: 2021 SIGMOIDOSCOPY SIGMOIDOSCOPY [facility] Start: 09-30-2017 PAP TESTING PAP TESTING [facility] Start: 07-02-2016 HPV TESTING HPV TESTING [facility] Start: 2016 Mammography [facility] Start: 11-20-2014 PNEUMOCOCCAL (2 - PCV) PNEUMOCOCCAL (2 - PCV) [facility] Start: 11-20-2014 Pneumococcal vaccination [facility] Start: 1995 Hepatitis B Vaccine (1 of 3 - 19+ 3-dose series) Hepatitis B Vaccine (1 of 3 - 19+ 3-dose series) [facility] Start: 1994 Anxiety Screening Anxiety Screening [facility] Start: 1994 Depression Screening Depression Scre ening [facility] Start: 1994 HEPATITIS C SCREENING HEPATITIS C SC REENING [facility] Start: 1994 Hepatitis C screening Hepatitis C [facility] Start: 1994 HIV SCREENING HIV SCREENING [facility] Start: 1994 HIV screening HIV Screening [facility] Start: 1976 COVID-19 VACCINE (#1) COVID-19 VACCI NE (#1) [facility] Start: 1976 HEPATITIS B (1 of 3 - 3-dose series) HEPATITIS B (1 of 3 - 3-dose series) [facility] Start: 1976 Hepatitis B Vaccine (1 of 3 - 3-dose series) Hepatitis B Vaccine (1 of 3 - 3-dose series) [facility] Bacteria identified in Urine by Culture URINE CULTURE Microbiology Routine Low back pain, unspecified back pain laterality, unspecified chronicity, unspecified whether sciatica present 05/15/2022 1:47 PM EST [facility] Work Phone: Bacteria identified in Urine by Culture URINE CULTURE Microbiology Routine Urinary frequency 10/08/2023 10:17 AM EDT [facility] Work Phone: Bacteria identified in Urine by Culture URINE CULTURE Microbiology Routine Urinary frequency 03/18/2024 12:02 PM EST [facility] Work Phone: Bacteria identified in Urine by Culture BACTERIAL CULTURE, URINE Microbiology Routine Vaginal irritation 06/16/2024 1:[address] [facility] BACTERIAL VAGINOSIS NAAT BACTERIAL VAGINOSIS NAAT Lab Routine Vaginal odor 06/14/2023 2:32 PM [facility] Work Phone: BACTERIAL VAGINOSIS NAAT BACTERIAL VAGINOSIS NAAT Lab Routine Vaginal irritation 06/16/2024 1:[address] [facility] KATHLEEN/TRICHOMONAS NAAT KATHLEEN/TRICHOMONAS NAAT Lab Routine Vaginal odor 06/14/2023 2:32 PM [facility] Work Phone: KATHLEEN/TRICHOMONAS NAAT KATHLEEN/TRICHOMONAS NAAT Lab Routine Vaginal irritation 06/16/2024 1:44 PM [facility] Work Phone: End: 01-30-2026 DBT Breast - bilateral screening RADHA SCREENING W ELISA Radiology Routine Encounter for screening mammogram for breast cancer 1 Occurrences starting 12/31/2024 until 01/30/2026 [facility] Work Phone: Comment on above: 1 Occurrences starti ng 12/31/2024 until 01/30/2026 End: 03-14-2024 RADHA DIAGNOSTIC RIGHT RADHA DIAGNOSTIC RIGHT Radiology Routine Abnormal screening mammogram 1 Occurrences starting 02/13/2023 until 03/14/2024 [facility] Work Phone: Comment on above: 1 Occurrences starti ng 02/13/2023 until 03/14/2024 End: 01-18-2024 RADHA SCREENING RADHA SCREENING Radiology Routine Encounter for screening mammogram for breast cancer 1 Occurrences starting 12/19/2022 until 01/18/2024 [facility] Work Phone: Comment on above: 1 Occurrences starti ng 12/19/2022 until 01/18/2024 End: 03-18-2025 MG Breast - left Diagnostic for implant RADHA DIAGNOSTIC LEFT Radiology Routine Abnormal mammogram 1 Occurrences starting 02/17/2024 until 03/18/2025 [facility] Work Phone: Comment on above: 1 Occurrences starti ng 02/17/2024 until 03/18/2025 PAP TEST PAP TEST Lab [facility] Encounter for gynecological examination (general) (routine) without abnormal findings Screening for cervical cancer Encounter for screening for human papillomavirus (HPV) 12/19/2022 2:42 PM EDT [facility] Work Phone: End: 03-18-2025 US Breast - left limited US BREAST LTD LEFT Radiology Routine Abnormal mammogram 1 Occurrences starting 02/17/2024 until 03/18/2025 [facility] Comment on above: 1 Occurrences starti ng 02/17/2024 until 03/18/2025 End: 03-14-2024 US BREAST LTD RIGHT US BREAST LTD RIGHT Radiology Routine Abnormal screening mammogram 1 Occurrences starting 02/13/2023 until 03/14/2024 [facility] Work Phone: Comment on above: 1 Occurrences starti ng 02/13/2023 until 03/14/2024 [facility] Immunizations Immunization Date Immunization Notes Care Provider Dorota ramirez 03-06-2014 influenza, seasonal, injectable Mera Austin PA-C Work Phone: [facility] 03-06-2014 influenza virus vacc ine, unspecified formulation Mera Austin PA-C Work Phone: [facility] 11-20-2013 pneumococcal polysaccharide vaccine, 23 valent Mera Austin PA-C Work Phone: [facility] 06-26-2011 tetanus toxoid, redu bjorn diphtheria toxoid, and acellular pertussis vaccine, adsorbed Mera Austin PA-C Work Phone: [facility] Work Phone: Payers Date Payer Category Payer [facility] BL[facility] [id number] 2023 Unknown MICHAEL [employer] [id number] 2023-Present [phone] [place] [address] [id number] 2023 Unknown [id number] Social History Date Type Detail Facility Start: 09-28-2010 End: 12-31-2024 Tobacco smoking status NHIS Smokes tobacco daily [facility] Work Phone: History of tobacco use Cigarette Smoker C [facility] Work Phone: Start: 09-28-2010 End: 12-31-2024 Cigarettes smoked current (pack per day) - Reported 0.5 [facility] Start: 09-28-2010 End: 12-31-2024 Tobacco use and exposure Smokeless tobacco non-user [facility] Work Phone: Start: 12-20-2021 End: 12-31-2024 Alcohol intake Current non-drinker of alcohol (finding) [facility] Start: 1975 Sex Assigned At Not on file C [facility] Start: 12-19-2022 End: 12-31-2024 Tobacco use panel [facility] Start: 1975 Sex Assigned At Female C [facility] Start: 12-15-2022 Gender identity Identifies as female gender (finding) [facility] Start: 04-06-2012 Sex Female [facility] Functional Status Date Assessment Result Facility 05-08-2014 Are you deaf, or do you have serious difficulty hearing No 05/08/2014 10:09 AM Reina De Anda Cma [facility] 05-08-2014 Are you blind, or do you have serious difficulty seeing, even when wearing glasses No 05/08/2014 10:09 AM Reina De Anda Cma [facility] 05-08-2014 Do you have serious difficulty walking or climbing stairs No 05/08/2014 10:09 AM Reina De Anda Cma [facility] 05-08-2014 Do you have difficul ty dressing or bathing No 05/08/2014 10:09 AM Reina De Anda Cma [facility] 05-08-2014 Because of a physica l, mental, or emotional condition, do you have difficulty doing errands alone such as visiting a physician's office or shopping No 05/08/2014 10:09 AM Reina De Anda Cma [facility] Mental Status Date Assessment Result Facility 05-08-2014 Because of a physica l, mental, or emotional condition, do you have serious difficulty concentrating, remembering, or making decisions No 05/08/2014 10:09 AM Reina De Anda Cma [facility] Clinical Notes 01-08-2014 to 03-01-2025 Zaina Tavares APRN.CNM - 12/31/2024 3:34 PM Hazel Momin - Luba Murcia RN - 06/18/2024 8:39 AM ESTTelephone Encounter - Luba MurciaKB - 06/18/2024 8:39 AM EST Note Date & Type Note Facility 03-01-2025 Note HNO ID: [id number] Author: IRMA HAWTHORNE MD Service: ? 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 Encounter Diagnosis ICD-10-CM 1. Menorrhagia, premenopausal N92.4 Please see report under imaging tab. Irma Hawthorne MD March 01, 2025 11:16 AM [facility] 02-25-2025 Note HNO ID: [id number] Author: ZAINA TAVARES APRN.[facility] Service: ? Author Type: Regulatory Consultant Type: Progress Notes Filed: 02/25/2025 14:08 Note Text: Yasmin Eden is a pleasant 49 year old female who presents for heavy period. LMP: Patient's last menstrual period was 02/22/2025. How often are you bleeding? How many days? 4 Started spotting last Saturday and then full bleeding on Saturday. Reports cycle is very heavy and she continues to bleed through pads and clothes. Lower left pelvic pain. Denies any cramping. Denies passing any clots. Do you have bleeding between menses? No Spotting? No History of endometrial polyps? No Post coital bleeding? No Bleeding through clothing? Yes Are you double protecting? No Do you pack an extra set of clothing while bleeding? No Do you put towels on your bedsheets while you are sleeping? No Have you ever received a blood transfusion? No Iron infusion? No Do you have shortness of breath? No Lightheaded? No Dizzy? No but had weakness at work yesterday. HISTORY PAST MEDICAL HISTORY Diagnosis Date NEGATIVE MEDICAL HISTORY PAST SURGICAL HISTORY Procedure Laterality Date APPENDECTOMY 1996 LAPAROSCOPY SURG CHOLECYSTECTOMY 1998 Cholecystectomy, lap LIG/TRNSXJ FLP TUBE ABDL/VAG APPR UNI/BI 1999 Tubal ligation FAMILY HISTORY Problem Relation Age of Onset Coronary Artery Disease Mother [place] Colon Polyps Mother Coronary Artery Disease Father [place] Breast Cancer Maternal Grandmother Cancer Maternal Grandmother THROAT SOCIAL HISTORY SOCIAL HISTORY[1] REVIEW OF SYSTEMS No recent weight gain or weight loss. Abdomen: No abdominal pain, nausea, vomiting, diarrhea, or constipation. No bloating, early satiety, indigestion, or increased flatulence. Bladder: No dysuria, gross hematuria, urinary frequency, urinary urgency, or incontinence. SENSITIVE EXAM: The sensitive examination was discussed with the Patient or Patient's Authorized Meter Repair Shop Supervisor. As applicable, any other physician, advance practice provider, medical student, or other health professional student that will be observing or involved in the sensitive examination for educational or training purposes was discussed with the Patient or Authorized Meter [employer] Supervisor. The Patient or Authorized Meter Repair [employer] Supervisor has agreed to proceed with the sensitive examination. (Sensitive examination includes inspection and/or palpation of the breasts, pelvis, prostate and anorectal regions). EXAM: BP 118/78 Wt 236 lb (107.0kg) LMP 02/22/2025 GENERAL: emotional, female in no apparent distress HEENT: Normocephalic and atraumatic NECK: Supple and full range of motion DERMATOLOGY: Normal and without lesions CHEST: Normal inspiratory effort ABDOMEN: soft, non-tender, and no masses PELVIC: external genitalia normal, normal Bartholin's glands, urethra, Kaloko's glands, no vulvar lesions, no cervical lesions, good vaginal support, physiologic discharge present, normal appearing perineal body and perianal region, moderate blood BIMANUAL: Moderate tenderness to left lower area ASSESSMENT/PLAN: 1. Menorrhagia, premenopausal - ICD9: 627.0, ICD10: N92.4 - PELVIC US WHI - INSERT INTRAUTERINE DEVICE - Discussed R/B to Mirena IUD placement to help with irregularities due to perimenopause. Patient would like to think about it and will call to schedule - Will follow up after pelvic US results return - Possible EMB? - Aygestin taper ordered and patient education on use if continues to have heavy bleeding - CBC and TANDS today Zaina Tavares APRN.DENNISM [1] Social History Tobacco Use Smoking status: Every Day Current packs/day: 0.50 Average packs/day: 0.5 packs/day for 9.0 years (4.5 ttl pk-yrs) Types: Cigarettes Smokeless tobacco: Never Vaping Use Vaping status: Never Used Substance Use Topics Alcohol use: No Drug use: No [facility] 12-31-2024 Note HNO ID: [id number] Author: ZAINA TAVARES APRN.CNM Service: ? Author Type: Regulatory Consultant Type: Progress Notes Filed: 12/31/2024 16:06 Note Text: Engineering Model Maker offered: Patient declines. Yasmin is a 49 year old who presents for an annual gynecologic exam without complaints. C/O cycles continue to be irregular. Some months skips cycle and other months has multiple cycles. Still get period: Yes Bleeding amount bothersome: No Bleeding between periods: Yes Period symptoms: Breast tenderness Menopause symptoms: Hot flashes; Vaginal dryness Time with current partner: 4 years Number of lifetime partners: 5 Contraception frequency: Always HPV vaccine: Unsure; HPV:negative Last pap smear: 12/19/2022, normal History of abnormal pap: No, all prior PAP smears have been normal Bothersome pelvic pain: Yes Last mammogram: bnormal, has ultrasound and dx mammo of left, was normal OB History Gravida3 Para3 Term3 Preterm0 AB0 Living3 SAB0 IAB0 Ectopic0 Multiple0 Live Births0 Insurance Processing Clerk History LMP: 12/13/2024, Having periods Age at Menarche: 13 Age at First : Age at Menopause: Insurance Processing Clerk History Comments: Sexual Activity: Yes; Male Contraception: Tubal Ligation Menstrual Tracking History Flowsheet Row Office Visit from 12/31/2024 in OB/Gynecology Period Cycle (Days) 28 Period Duration (Days) 3 Menstrual Flow Light PAST MEDICAL HISTORY Diagnosis Date NEGATIVE MEDICAL HISTORY PAST SURGICAL HISTORY Procedure Laterality Date APPENDECTOMY 1996 LAPAROSCOPY SURG CHOLECYSTECTOMY 1998 Cholecystectomy, lap LIG/TRNSXJ FLP TUBE ABDL/VAG APPR UNI/BI 1999 Tubal ligation FAMILY HISTORY Problem Relation Age of Onset Coronary Artery Disease Mother [place] Colon Polyps Mother Coronary Artery Disease Father [place] Breast Cancer Maternal Grandmother Cancer Maternal Grandmother THROAT SOCIAL HISTORY Social History Tobacco Use Smoking status: Every Day Current packs/day: 0.50 Average packs/day: 0.5 packs/day for 9.0 years (4.5 ttl pk-yrs) Types: Cigarettes Smokeless tobacco: Never Vaping Use Vaping status: Never Used Substance Use Topics Alcohol use: No Drug use: No REVIEW OF SYSTEMS Abdomen: No abdominal pain, nausea, vomiting, diarrhea, or constipation. No bloating, early satiety, indigestion, or increased flatulence. Bladder: Frequent UTI- stated 5-6 / year and was told to see Urology but couldn't get appointment? Breast: No breast lumps, nipple d/c, overlying skin changes, redness or skin retraction. Allergies and current medication updated:Yes SENSITIVE EXAM: The sensitive examination was discussed with the Patient or Patient's Authorized Meter Repair Shop Supervisor. As applicable, any other physician, advance practice provider, medical student, or other health professional student that will be observing or involved in the sensitive examination for educational or training purposes was discussed with the Patient or Authorized Meter Repair Shop Supervisor. The Patient or Authorized Meter Repair Shop Supervisor has agreed to proceed with the sensitive examination. (Sensitive examination includes inspection and/or palpation of the breasts, pelvis, prostate and anorectal regions). EXAM: BP 128/80 Ht 5' 2 (1.58m) Wt 234 lb 9.6 oz (106.4kg) LMP 12/13/2024 BMI 42.90 kg/(m2). GENERAL: pleasant, female in no apparent distress HEENT: Normocephalic, atraumatic, and mucus membranes moist NECK: Supple and full range of motion DERMATOLOGY: Normal and without lesions BREAST: soft, non-tender, symmetric, no dominant mass, normal nipple-areolar complex, no lymphadenopathy, and no nipple discharge CHEST: Normal inspiratory effort ABDOMEN: soft, non-tender, and no masses PELVIC: external genitalia normal, normal Bartholin's glands, urethra, Kaloko's glands, no vulvar lesions, no cervical lesions, good vaginal support, physiologic discharge present, normal appearing perineal body and perianal region BIMANUAL: uterus normal size, shape and consistency, no adnexal masses, non-tender, and no cervical motion tenderness RECTOVAGINAL: deferred. NEURO: alert and oriented x3,exam grossly non-focal EXTREMITIES: normal ASSESSMENT/PLAN: 1) Health maintenance: Pap/HPV up to date. Mammogram ordered- patient to schedule Nutrition, exercise and routine health maintenance exams reviewed. Lipids/glucose: followed by PCP Vitamin D: followed by PCP 2) Contraception: tubal sterilization. Contraceptive options reviewed and information provided. 3) STD screening: Declined STI check. 4) Consult urology- recurrent UTI Follow up one year or sooner as needed Zaina Tavares APRN.CNM [facility] 12-31-2024 History of Presen t illness Narrative Engineering Model Maker offered: Patient declines. Yasmin is a 49 year old who presents for an annual gynecologic exam without complaints. C/O cycles continue to be irregular. Some months skips cycle and other months has multiple cycles. Still get period: Yes Bleeding amount bothersome: No Bleeding between periods: Yes Period symptoms: Breast tenderness Menopause symptoms: Hot flashes; Vaginal dryness Time with current partner: 4 years Number of lifetime partners: 5 Contraception frequency: Always HPV vaccine: Unsure; HPV:negative Last pap smear: 12/19/2022, normal History of abnormal pap: No, all prior PAP smears have been normal Bothersome pelvic pain: Yes Last mammogram: bnormal, has ultrasound and dx mammo of left, was normal OB History Gravida3 Para3 Term3 Preterm0 AB0 Living3 SAB0 IAB0 Ectopic0 Multiple0 Live Births0 Insurance Processing Clerk History LMP: 12/13/2024, Having periods Age at Menarche: 13 Age at First : Age at Menopause: Insurance Processing Clerk History Comments: Sexual Activity: Yes; Male Contraception: Tubal Ligation Menstrual Tracking History Flowsheet Row Office Visit from 12/31/2024 in OB/Gynecology Period Cycle (Days) 28 Period Duration (Days) 3 Menstrual Flow Light PAST MEDICAL HISTORY Diagnosis Date NEGATIVE MEDICAL HISTORY PAST SURGICAL HISTORY Procedure Laterality Date APPENDECTOMY 1996 LAPAROSCOPY SURG CHOLECYSTECTOMY 1998 Cholecystectomy, lap LIG/TRNSXJ FLP TUBE ABDL/VAG APPR UNI/BI 1999 Tubal ligation FAMILY HISTORY Problem Relation Age of Onset Coronary Artery Disease Mother [place] Colon Polyps Mother Coronary Artery Disease Father [place] Breast Cancer Maternal Grandmother Cancer Maternal Grandmother THROAT SOCIAL HISTORY Social History Tobacco Use Smoking status: Every Day Current packs/day: 0.50 Average packs/day: 0.5 packs/day for 9.0 years (4.5 ttl pk-yrs) Types: Cigarettes Smokeless tobacco: Never Vaping Use Vaping status: Never Used Substance Use Topics Alcohol use: No Drug use: No REVIEW OF SYSTEMS Abdomen: No abdominal pain, nausea, vomiting, diarrhea, or constipation. No bloating, early satiety, indigestion, or increased flatulence. Bladder: Frequent UTI- stated 5-6 / year and was told to see Urology but couldn't get appointment? Breast: No breast lumps, nipple d/c, overlying skin changes, redness or skin retraction. Allergies and current medication updated:Yes SENSITIVE EXAM: The sensitive examination was discussed with the Patient or Patient's Authorized Meter Repair Shop Supervisor. As applicable, any other physician, advance practice provider, medical student, or other health professional student that will be observing or involved in the sensitive examination for educational or training purposes was discussed with the Patient or Authorized Meter Repair Shop Supervisor. The Patient or Authorized Meter Repair Shop Supervisor has agreed to proceed with the sensitive examination. (Sensitive examination includes inspection and/or palpation of the breasts, pelvis, prostate and anorectal regions). EXAM: BP 128/80 Ht 5' 2 (1.58m) Wt 234 lb 9.6 oz (106.4kg) LMP 12/13/2024 BMI 42.90 kg/(m^2). GENERAL: pleasant, female in no apparent distress HEENT: Normocephalic, atraumatic, and mucus membranes moist NECK: Supple and full range of motion DERMATOLOGY: Normal and without lesions BREAST: soft, non-tender, symmetric, no dominant mass, normal nipple-areolar complex, no lymphadenopathy, and no nipple discharge CHEST: Normal inspiratory effort ABDOMEN: soft, non-tender, and no masses PELVIC: external genitalia normal, normal Bartholin's glands, urethra, Kaloko's glands, no vulvar lesions, no cervical lesions, good vaginal support, physiologic discharge present, normal appearing perineal body and perianal region BIMANUAL: uterus normal size, shape and consistency, no adnexal masses, non-tender, and no cervical motion tenderness RECTOVAGINAL: deferred. NEURO: alert and oriented x3,exam grossly non-focal EXTREMITIES: normal ASSESSMENT/PLAN: 1) Health maintenance: Pap/HPV up to date. Mammogram ordered- patient to schedule Nutrition, exercise and routine health maintenance exams reviewed. Lipids/glucose: followed by PCP Vitamin D: followed by PCP 2) Contraception: tubal sterilization. Contraceptive options reviewed and information provided. 3) STD screening: Declined STI check. 4) Consult urology- recurrent UTI Follow up one year or sooner as needed Zaina Tavares APRN.CNM documented in this encounter [facility] 06-18-2024 Telephone encounter Note I think patient is referring to her urine culture. [facility] 06-18-2024 Miscellaneous Notes I think patient is referring to her urine culture. documented in this encounter [facility] 06-16-2024 Instructions Anisa Owens MD - 06/16/2024 1:41 PM EST Minimizing irritation of the vulva (area around the vagina) Wear white cotton underwear. Avoid synthetic fabrics and tight clothing. Sleep wearing shorts or pajama bottoms without underwear. Shower as soon as possible after exercise. Avoid clothing detergents and soaps with perfumes or dyes. Use warm (not hot) water to wash the vulva and if you use soap use a product designed for sensitive skin (like Dove or Cetaphil). Do not douche or use creams/powders in the vulvar area unless instructed by your physician. If you must douche, use only plain warm water. Make sure the vulva is dry before dressing by patting dry with a towel. Avoid vigorous rubbing with the towel. You may want to use the blow dryer (on the cool setting only!) on the vulva. The most important way to let your body heal is by avoiding scratching. Many patients find it difficult to avoid scratching at night when they are most aware of the itchiness. You can try taking Benadryl just before bedtime. Some women find it helpful to wear cotton gloves to bed to avoid scratching at night. A&D ointment - barrier cream documented in this encounter [facility] 06-16-2024 Note HNO ID: [id number] Author: ANISA OWENS MD Service: ? Author Type: Physician Type: Progress Notes Filed: 06/16/2024 13:44 Note Text: Yasmin Eden is a 49 year old female who presents for problem visit. HPI: Patient presents with some vulvovaginal itching and irritation. She had some dysuria last week and took some old antibiotics. Also she has used 2 of 3 days of Monistat 3. No dose since yesterday. OB History Gravida3 Para3 Term3 Preterm0 AB0 Living3 SAB0 IAB0 Ectopic0 Multiple0 Live Births0 Insurance Processing Clerk History LMP: 03/10/2024 (Exact Date), Having periods Age at Menarche: Age at First : Age at Menopause: Insurance Processing Clerk History Comments: Sexual Activity: Yes; Male Contraception: Tubal Ligation PAST MEDICAL HISTORY Diagnosis Date NEGATIVE MEDICAL HISTORY PAST SURGICAL HISTORY Procedure Laterality Date APPENDECTOMY 1996 LAPAROSCOPY SURG CHOLECYSTECTOMY 1998 Cholecystectomy, lap LIG/TRNSXJ FLP TUBE ABDL/VAG APPR UNI/BI 1999 Tubal ligation FAMILY HISTORY Problem Relation Age of Onset Coronary Artery Disease Mother [place] Colon Polyps Mother Coronary Artery Disease Father [place] Breast Cancer Maternal Grandmother Cancer Maternal Grandmother THROAT Social History Tobacco Use Smoking status: Every Day Current packs/day: 0.50 Average packs/day: 0.5 packs/day for 9.0 years (4.5 ttl pk-yrs) Types: Cigarettes Smokeless tobacco: Never Vaping Use Vaping status: Never Used Substance Use Topics Alcohol use: No Drug use: No Current Outpatient Medications Medication Sig phenazopyridine (PYRIDIUM) 200 mg tablet Take 1 tablet by mouth as directed. Take TID for 3 days prn bladder discomfort SEMAGLUTIDE SUBCUTANEOUS Inject subcutaneously. omeprazole (PRILOSEC) 20 mg capsule Take 20 mg by mouth once daily. RANITIDINE HCL ORAL Take by mouth. No current facility-administered medications for this visit. Allergies As of Date: 06/16/2024 Allergen Noted Reaction CODEINE 03/09/2005 Fully Assessed 03/18/2024 Allergies and current medication updated:Yes SENSITIVE EXAM: The sensitive examination was discussed with the Patient or Patient's Authorized Meter Repair Shop Supervisor. As applicable, any other physician, advance practice provider, medical student, or other health professional student that will be observing or involved in the sensitive examination for educational or training purposes was discussed with the Patient or Authorized Meter Repair Shop Supervisor. The Patient or Authorized Meter Repair Shop Supervisor has agreed to proceed with the sensitive examination. (Sensitive examination includes inspection and/or palpation of the breasts, pelvis, prostate and anorectal regions). EXAM: LMP 03/10/2024 GENERAL: pleasant, female in no apparent distress PELVIC: external genitalia normal but with slight erythema, normal Bartholin's glands, urethra, Kaloko's glands, no vulvar lesions, no cervical lesions, good vaginal support, physiologic discharge present, white appearing perineal body and perianal region ASSESSMENT AND PLAN: Assessment AND Plan Vaginal irritation Orders: UA DIP, URINE (POC) Vulvar itching Dysuria Kenalog ointment sent. Advised on perineal hygiene. Medical Decision Making: Problems: Low: Acute, uncomplicated illness or injury Data: Unique test(s) ordered: 3+ Risk: Moderate: Drug management Medical Decision Making Level: 4 - Moderate Anisa Owens MD [facility] 06-16-2024 History of Presen t illness Narrative Yasmin Eden is a 49 year old female who presents for problem visit. HPI: Patient presents with some vulvovaginal itching and irritation. She had some dysuria last week and took some old antibiotics. Also she has used 2 of 3 days of Monistat 3. No dose since yesterday. OB History Gravida3 Para3 Term3 Preterm0 AB0 Living3 SAB0 IAB0 Ectopic0 Multiple0 Live Births0 Insurance Processing Clerk History LMP: 03/10/2024 (Exact Date), Having periods Age at Menarche: Age at First : Age at Menopause: Insurance Processing Clerk History Comments: Sexual Activity: Yes; Male Contraception: Tubal Ligation PAST MEDICAL HISTORY Diagnosis Date NEGATIVE MEDICAL HISTORY PAST SURGICAL HISTORY Procedure Laterality Date APPENDECTOMY 1996 LAPAROSCOPY SURG CHOLECYSTECTOMY 1998 Cholecystectomy, lap LIG/TRNSXJ FLP TUBE ABDL/VAG APPR UNI/BI 1999 Tubal ligation FAMILY HISTORY Problem Relation Age of Onset Coronary Artery Disease Mother [place] Colon Polyps Mother Coronary Artery Disease Father [place] Breast Cancer Maternal Grandmother Cancer Maternal Grandmother THROAT Social History Tobacco Use Smoking status: Every Day Current packs/day: 0.50 Average packs/day: 0.5 packs/day for 9.0 years (4.5 ttl pk-yrs) Types: Cigarettes Smokeless tobacco: Never Vaping Use Vaping status: Never Used Substance Use Topics Alcohol use: No Drug use: No Current Outpatient Medications Medication Sig phenazopyridine (PYRIDIUM) 200 mg tablet Take 1 tablet by mouth as directed. Take TID for 3 days prn bladder discomfort SEMAGLUTIDE SUBCUTANEOUS Inject subcutaneously. omeprazole (PRILOSEC) 20 mg capsule Take 20 mg by mouth once daily. RANITIDINE HCL ORAL Take by mouth. No current facility-administered medications for this visit. Allergies As of Date: 06/16/2024 Allergen Noted Reaction CODEINE 03/09/2005 Fully Assessed 03/18/2024 Allergies and current medication updated:Yes SENSITIVE EXAM: The sensitive examination was discussed with the Patient or Patient's Authorized Meter Repair Shop Supervisor. As applicable, any other physician, advance practice provider, medical student, or other health professional student that will be observing or involved in the sensitive examination for educational or training purposes was discussed with the Patient or Authorized Meter Repair Shop Supervisor. The Patient or Authorized Meter Repair Shop Supervisor has agreed to proceed with the sensitive examination. (Sensitive examination includes inspection and/or palpation of the breasts, pelvis, prostate and anorectal regions). EXAM: LMP 03/10/2024 GENERAL: pleasant, female in no apparent distress PELVIC: external genitalia normal but with slight erythema, normal Bartholin's glands, urethra, Kaloko's glands, no vulvar lesions, no cervical lesions, good vaginal support, physiologic discharge present, white appearing perineal body and perianal region ASSESSMENT AND PLAN: Assessment & Plan Vaginal irritation Orders: UA DIP, URINE (POC) Vulvar itching Dysuria Kenalog ointment sent. Advised on perineal hygiene. Medical Decision Making: Problems: Low: Acute, uncomplicated illness or injury Data: Unique test(s) ordered: 3+ Risk: Moderate: Drug management Medical Decision Making Level: 4 - Moderate Anisa Owens MD documented in this encounter [facility] 04-08-2024 History of Presen t illness Narrative Radiology Service Progress Note PATIENT NAME: Yasmin Eden DATE OF SERVICE: April 08, 2024 TIME: 10:05 AM PATIENT IDENTITY VERIFICATION COMPLETED USING TWO (2) IDENTIFIERS: Name and Date of confirmed by patient verbally. FALL SCREENING: Has the patient had 2 falls in the last year or 1 fall with injury or currently using an Ambulatory Assistive Device (Walker, Cane, Wheelchair, Crutches, etc.)? No PATIENT GENDER DATA: Female. status: : No status: NO. PATIENT RELEVANT IMPLANT DATA REVIEWED: Not Applicable PATIENT PRESENTS WITH AN IMPLANTABLE OR ATTACHED BAG MACHINE SET UP OPERATOR: No RADIOLOGY DEPARTMENT: Ultrasound PERIPHERAL IV DATA: Not applicable SIGNED BY: Christelle Montalvo RDMS April 08, 2024 10:05 AM documented in this encounter [facility] 04-08-2024 Note HNO ID: [id number] Author: CHRISTELLE MONTALVO RDMS Service: ? Author Type: Corporate Real Estate Specialist Type: Progress Notes Filed: 04/08/2024 10:05 Note Text: Radiology Service Progress Note PATIENT NAME: Yasmin Eden DATE OF SERVICE: April 08, 2024 TIME: 10:05 AM PATIENT IDENTITY VERIFICATION COMPLETED USING TWO (2) IDENTIFIERS: Name and Date of confirmed by patient verbally. FALL SCREENING: Has the patient had 2 falls in the last year or 1 fall with injury or currently using an Ambulatory Assistive Device (Walker, Cane, Wheelchair, Crutches, etc.)? No PATIENT GENDER DATA: Female. status: : No status: NO. PATIENT RELEVANT IMPLANT DATA REVIEWED: Not Applicable PATIENT PRESENTS WITH AN IMPLANTABLE OR ATTACHED BAG MACHINE SET UP OPERATOR: No RADIOLOGY DEPARTMENT: Ultrasound PERIPHERAL IV DATA: Not applicable SIGNED BY: Christelle Montalvo RDMS April 08, 2024 10:05 AM [facility] 04-08-2024 History of Presen t illness Narrative Radiology Service Progress Note PATIENT NAME: Yasmin Eden DATE OF SERVICE: April 08, 2024 TIME: 9:03 AM PATIENT IDENTITY VERIFICATION COMPLETED USING TWO (2) IDENTIFIERS: Name and Date of confirmed by patient verbally. FALL SCREENING: Has the patient had 2 falls in the last year or 1 fall with injury or currently using an Ambulatory Assistive Device (Walker, Cane, Wheelchair, Crutches, etc.)? No PATIENT GENDER DATA: Female. status: : No status: NO. PATIENT RELEVANT IMPLANT DATA REVIEWED: Not Applicable PATIENT PRESENTS WITH AN IMPLANTABLE OR ATTACHED BAG MACHINE SET UP OPERATOR: No RADIOLOGY DEPARTMENT: Mammography PERIPHERAL IV DATA: Not applicable SIGNED BY: RT Nehemiah(Yancy) April 08, 2024 9:03 AM documented in this encounter [facility] 04-08-2024 Note HNO ID: [id number] Author: LATOYA DECKER RT(R) Service: ? Author Type: Technologist Type: Progress Notes Filed: 04/08/2024 09:03 Note Text: Radiology Service Progress Note PATIENT NAME: Yasmin Eden DATE OF SERVICE: April 08, 2024 TIME: 9:03 AM PATIENT IDENTITY VERIFICATION COMPLETED USING TWO (2) IDENTIFIERS: Name and Date of confirmed by patient verbally. FALL SCREENING: Has the patient had 2 falls in the last year or 1 fall with injury or currently using an Ambulatory Assistive Device (Walker, Cane, Wheelchair, Crutches, etc.)? No PATIENT GENDER DATA: Female. status: : No status: NO. PATIENT RELEVANT IMPLANT DATA REVIEWED: Not Applicable PATIENT PRESENTS WITH AN IMPLANTABLE OR ATTACHED BAG MACHINE SET UP OPERATOR: No RADIOLOGY DEPARTMENT: Mammography PERIPHERAL IV DATA: Not applicable SIGNED BY: RT Nehemiah(R) April 08, 2024 9:03 AM [facility] 03-18-2024 Note HNO ID: [id number] Author: DEZ KAY MD Service: ? Author Type: Physician Type: Progress Notes Filed: 03/18/2024 11:47 Note Text: Yasmin Eden is a 48 year old female who presents for problem visit for c/o frequent UTIs. HPI: 48 YOF presents c/o UTI symptoms, frequency. no dyuria. At end of urination feels like she isn't empty and pushes. Hasn't seen urology for this. Was on antibiotics prn. Sexually active, no change in partners, no vaginal symptoms. Menses regular. Drinks sweet tea. Some water. Some juices. No alcohol. No h/o kidney stones. Gets up twice at night to urinate, moderate amount. Some leaking of urine but not as much as before she had surgery, not a sling. OB History T3 L3 SAB0 IAB0 Ectopic0 Multiple0 Live Births0 Insurance Processing Clerk History LMP: 03/10/2024 (Exact Date), Having periods Age at Menarche: Age at First : Age at Menopause: Insurance Processing Clerk History Comments: Sexual Activity: Yes; Male Contraception: Tubal Ligation PAST MEDICAL HISTORY Diagnosis Date NEGATIVE MEDICAL HISTORY PAST SURGICAL HISTORY Procedure Laterality Date APPENDECTOMY 1996 LAPAROSCOPY SURG CHOLECYSTECTOMY 1998 Cholecystectomy, lap LIG/TRNSXJ FLP TUBE ABDL/VAG APPR UNI/BI 1999 Tubal ligation FAMILY HISTORY Problem Relation Age of Onset Coronary Artery Disease Mother [place] Colon Polyps Mother Coronary Artery Disease Father [place] Breast Cancer Maternal Grandmother Cancer Maternal Grandmother THROAT Social History Tobacco Use Smoking status: Every Day Current packs/day: 0.50 Average packs/day: 0.5 packs/day for 9.0 years (4.5 ttl pk-yrs) Types: Cigarettes Smokeless tobacco: Never Vaping Use Vaping status: Never Used Substance Use Topics Alcohol use: No Drug use: No Current Outpatient Medications Medication Sig SEMAGLUTIDE SUBCUTANEOUS Inject subcutaneously. omeprazole (PRILOSEC) 20 mg capsule Take 20 mg by mouth once daily. RANITIDINE HCL ORAL Take by mouth. No current facility-administered medications for this visit. Allergies As of Date: 03/18/2024 Allergen Noted Reaction CODEINE 03/09/2005 Fully Assessed 10/08/2023 Allergies and current medication updated:Yes SENSITIVE EXAM: The sensitive examination was discussed with the Patient or Patient's Authorized Meter Repair Shop Supervisor. As applicable, any other physician, advance practice provider, medical student, or other health professional student that will be observing or involved in the sensitive examination for educational or training purposes was discussed with the Patient or Authorized Meter Repair Shop Supervisor. The Patient or Authorized Meter Repair Shop Supervisor has agreed to proceed with the sensitive examination. (Sensitive examination includes inspection and/or palpation of the breasts, pelvis, prostate and anorectal regions). EXAM: BP 126/82 Wt 214 lb (97.1kg) LMP 03/10/2024 GENERAL: pleasant, female in no apparent distress PELVIC: external genitalia normal, normal Bartholin's glands, urethra, Kaloko's glands, no vulvar lesions, no cervical lesions, physiologic discharge present, normal appearing perineal body and perianal region, cystocele 1st degree, rectocele 1st degree BIMANUAL: uterus normal size, shape and consistency, no adnexal masses, and non-tender ASSESSMENT AND PLAN: Assessment AND Plan Urinary frequency Orders: URINE CULTURE CONSULT TO URO GYNECOLOGY; Future trace blood in urine, drinks minimal water. D/w her decrease bladder irritants. Consult urogyn due to trace blood and h/o bladder sling. Treat while culture pending Dez Kay MD [facility] 03-18-2024 History of Presen t illness Narrative Yasmin Eden is a 48 year old female who presents for problem visit for c/o frequent UTIs. HPI: 48 YOF presents c/o UTI symptoms, frequency. no dyuria. At end of urination feels like she isn't empty and pushes. Hasn't seen urology for this. Was on antibiotics prn. Sexually active, no change in partners, no vaginal symptoms. Menses regular. Drinks sweet tea. Some water. Some juices. No alcohol. No h/o kidney stones. Gets up twice at night to urinate, moderate amount. Some leaking of urine but not as much as before she had surgery, not a sling. OB History T3 L3 SAB0 IAB0 Ectopic0 Multiple0 Live Births0 Insurance Processing Clerk History LMP: 03/10/2024 (Exact Date), Having periods Age at Menarche: Age at First : Age at Menopause: Insurance Processing Clerk History Comments: Sexual Activity: Yes; Male Contraception: Tubal Ligation PAST MEDICAL HISTORY Diagnosis Date NEGATIVE MEDICAL HISTORY PAST SURGICAL HISTORY Procedure Laterality Date APPENDECTOMY 1996 LAPAROSCOPY SURG CHOLECYSTECTOMY 1998 Cholecystectomy, lap LIG/TRNSXJ FLP TUBE ABDL/VAG APPR UNI/BI 1999 Tubal ligation FAMILY HISTORY Problem Relation Age of Onset Coronary Artery Disease Mother [place] Colon Polyps Mother Coronary Artery Disease Father [place] Breast Cancer Maternal Grandmother Cancer Maternal Grandmother THROAT Social History Tobacco Use Smoking status: Every Day Current packs/day: 0.50 Average packs/day: 0.5 packs/day for 9.0 years (4.5 ttl pk-yrs) Types: Cigarettes Smokeless tobacco: Never Vaping Use Vaping status: Never Used Substance Use Topics Alcohol use: No Drug use: No Current Outpatient Medications Medication Sig SEMAGLUTIDE SUBCUTANEOUS Inject subcutaneously. omeprazole (PRILOSEC) 20 mg capsule Take 20 mg by mouth once daily. RANITIDINE HCL ORAL Take by mouth. No current facility-administered medications for this visit. Allergies As of Date: 03/18/2024 Allergen Noted Reaction CODEINE 03/09/2005 Fully Assessed 10/08/2023 Allergies and current medication updated:Yes SENSITIVE EXAM: The sensitive examination was discussed with the Patient or Patient's Authorized Meter Repair Shop Supervisor. As applicable, any other physician, advance practice provider, medical student, or other health professional student that will be observing or involved in the sensitive examination for educational or training purposes was discussed with the Patient or Authorized Meter Repair Shop Supervisor. The Patient or Authorized Meter Repair Shop Supervisor has agreed to proceed with the sensitive examination. (Sensitive examination includes inspection and/or palpation of the breasts, pelvis, prostate and anorectal regions). EXAM: BP 126/82 Wt 214 lb (97.1kg) LMP 03/10/2024 GENERAL: pleasant, female in no apparent distress PELVIC: external genitalia normal, normal Bartholin's glands, urethra, Kaloko's glands, no vulvar lesions, no cervical lesions, physiologic discharge present, normal appearing perineal body and perianal region, cystocele 1st degree, rectocele 1st degree BIMANUAL: uterus normal size, shape and consistency, no adnexal masses, and non-tender ASSESSMENT AND PLAN: Assessment & Plan Urinary frequency Orders: URINE CULTURE CONSULT TO URO GYNECOLOGY; Future trace blood in urine, drinks minimal water. D/w her decrease bladder irritants. Consult urogyn due to trace blood and h/o bladder sling. Treat while culture pending Dez Kay MD documented in this encounter [facility] 03-18-2024 Telephone encounter Note Pt has appt scheduled today at 1130am with RR. Nehal Aguila RN [facility] 03-18-2024 Miscellaneous Notes Pt has appt scheduled today at 1130am with RR. Nehal Aguila RN Patient needs visit Anisa Owens MD CP patient. Urine orders pending if appropriate. Niecy Severino RN documented in this encounter [facility] 03-17-2024 Telephone encounter Note Patient needs visit Anisa Owens MD [facility] Work Phone: 03-17-2024 Telephone encounter Note CP patient. Urine orders pending if appropriate. Niecy Severino RN [facility] 02-17-2024 History of Presen t illness Narrative Radiology Service Progress Note PATIENT NAME: Yasmin Eden DATE OF SERVICE: February 17, 2024 TIME: 8:14 AM PATIENT IDENTITY VERIFICATION COMPLETED USING TWO (2) IDENTIFIERS: Name and Date of confirmed by patient verbally. FALL SCREENING: Has the patient had 2 falls in the last year or 1 fall with injury or currently using an Ambulatory Assistive Device (Walker, Cane, Wheelchair, Crutches, etc.)? No PATIENT GENDER DATA: Female. status: : No status: NO. PATIENT RELEVANT IMPLANT DATA REVIEWED: Not Applicable PATIENT PRESENTS WITH AN IMPLANTABLE OR ATTACHED BAG MACHINE SET UP OPERATOR: No RADIOLOGY DEPARTMENT: Mammography PERIPHERAL IV DATA: Not applicable SIGNED BY: Julio César Beach February 17, 2024 8:14 AM documented in this encounter [facility] 10-08-2023 History of Presen t illness Narrative Subjective HPI Yasmin Eden is a 48 year old female who presents with dysuria, frequency, and chills for the past 7 hours. She awoke at 3 am with symptoms. She has history of UTI. Denies fever. She has had chills today. She has not taken any medication at home for her symptoms. Review of Systems Constitutional: Negative for chills and fever. Respiratory: Negative. Cardiovascular: Negative. Gastrointestinal: Negative for abdominal pain, nausea and vomiting. Genitourinary: Positive for dysuria, frequency and urgency. Negative for flank pain and hematuria. Musculoskeletal: Negative for back pain. BP 124/80 Pulse 100 Temp 36.7 C (98 F) Resp 16 Wt 99.7 kg (219 lb 12.8 oz) LMP 06/13/2023 (Exact Date) SpO2 95% BMI 40.20 kg/m PAST MEDICAL HISTORY Diagnosis Date NEGATIVE MEDICAL HISTORY PAST SURGICAL HISTORY Procedure Laterality Date APPENDECTOMY 1996 LAPAROSCOPY SURG CHOLECYSTECTOMY 1998 Cholecystectomy, lap LIG/TRNSXJ FLP TUBE ABDL/VAG APPR UNI/BI 1999 Tubal ligation ALLERGIES Codeine MEDICATIONS omeprazole (PRILOSEC) 20 mg capsule Take 20 mg by mouth once daily. RANITIDINE HCL ORAL Take by mouth. SEMAGLUTIDE SUBCUTANEOUS Inject subcutaneously. nitrofurantoin monohydrate and macrocrystal (MACROBID) 100 mg capsule Take 1 capsule by mouth two times a day for 5 days. FAMILY HISTORY Problem Relation Age of Onset Coronary Artery Disease Mother [place] Colon Polyps Mother Coronary Artery Disease Father [place] Breast Cancer Maternal Grandmother Cancer Maternal Grandmother THROAT Social History Tobacco Use Smoking status: Every Day Packs/day: 0.50 Years: 9.00 Additional pack years: 0.00 Total pack years: 4.50 Types: Cigarettes Smokeless tobacco: Never Vaping Use Vaping Use: Never used Substance Use Topics Alcohol use: No Drug use: No Objective Physical Exam Vitals and nursing note reviewed. Constitutional: General: She is not in acute distress. Appearance: Normal appearance. She is not ill-appearing. Cardiovascular: Rate and Rhythm: Normal rate and regular rhythm. Heart sounds: Normal heart sounds. Pulmonary: Effort: Pulmonary effort is normal. No respiratory distress. Breath sounds: Normal breath sounds. No wheezing or rales. Abdominal: General: There is no distension. Palpations: Abdomen is soft. There is no mass. Tenderness: There is no abdominal tenderness. There is no right CVA tenderness, left CVA tenderness or guarding. Skin: General: Skin is warm and dry. Neurological: Mental Status: She is alert. Last lab for kidney function: Latest Ref Rng 02/14/2023 Protein, Total 6.3 - 8.0 g/dL 7.0 Albumin 3.9 - 4.9 g/dL 3.7 (L) Calcium 8.5 - 10.2 mg/dL 9.3 Bilirubin, Total 0.2 - 1.3 mg/dL <0.2 (L) Alkaline Phosphatase 34 - 123 U/L 97 AST 13 - 35 U/L 15 ALT 7 - 38 U/L 11 Glucose 74 - 99 mg/dL 67 (L) BUN 7 - 21 mg/dL 8 Creatinine 0.58 - 0.96 mg/dL 0.57 (L) Sodium 136 - 144 mmol/L 139 Potassium 3.7 - 5.1 mmol/L 4.0 Chloride 97 - 105 mmol/L 102 CO2 22 - 30 mmol/L 27 Anion Gap 9 - 18 mmol/L 10 eGFR >=60 mL/min/1.73m 114 Legend: (L) Low ASSESSMENT/PLAN: 1. Urinary frequency - ICD9: 788.41, ICD10: R35.0 (primary diagnosis) acute - UA positive for dolly esterase, hematuria, and proteinuria - Send urine for culture - Begin treatment with Macrobid 100 mg BID for 5 days - Patient education for prevention given - UA DIP, URINE (POC) - URINE CULTURE 2. Acute cystitis with hematuria - ICD9: 595.0, ICD10: N30.01 - NITROFURANTOIN MONOHYDRATE & MACROCRYSTAL 100 MG ORAL CAP 3. Dysuria - ICD9: 788.1, ICD10: R30.0 - UA positive for dolly esterase, hematuria, and proteinuria - Send urine for culture - Begin treatment with Macrobid 100 mg BID for 5 days - Patient education for prevention given - UA DIP, URINE (POC) - URINE CULTURE - Follow-up with your PCP in 3-5 days if symptoms have not improved or sooner if symptoms worsen - Discussed red flags and need for immediate medical evaluation if any occur. - Discussed supportive care treatment with fluids, rest and analgesia. - Discussed expected course of illness Risa Webb APRN.CNP documented in this encounter [facility] 10-08-2023 Instructions Risa Webb APRN.CNP - 10/08/2023 10:06 AM EDT ASSESSMENT/PLAN: 1. Urinary frequency - ICD9: 788.41, ICD10: R35.0 (primary diagnosis) acute - UA positive for dolly esterase, hematuria, and proteinuria - Send urine for culture - Begin treatment with Macrobid 100 mg BID for 5 days - Patient education for prevention given - UA DIP, URINE (POC) - URINE CULTURE 2. Acute cystitis with hematuria - ICD9: 595.0, ICD10: N30.01 - NITROFURANTOIN MONOHYDRATE & MACROCRYSTAL 100 MG ORAL CAP 3. Dysuria - ICD9: 788.1, ICD10: R30.0 - UA positive for dolly esterase, hematuria, and proteinuria - Send urine for culture - Begin treatment with Macrobid 100 mg BID for 5 days - Patient education for prevention given - UA DIP, URINE (POC) - URINE CULTURE - Follow-up with your PCP in 3-5 days if symptoms have not improved or sooner if symptoms worsen - Discussed red flags and need for immediate medical evaluation if any occur. - Discussed supportive care treatment with fluids, rest and analgesia. - Discussed expected course of illness Risa Webb APRN.[facility] CARE PATIENT INFO BLADDER INFECTION OVERVIEW Bladder infections are one of the most common infections, causing symptoms of burning with urination and needing to urinate frequently. A bladder infection is a type of urinary tract infection (UTI). Bladder infections are more common is women than men. Most women have an uncomplicated bladder infection that is easily treated with a short course of antibiotics. In men, bladder infections may also affect the prostate gland, and a longer course of treatment may be needed. BLADDER INFECTION CAUSES The urinary tract includes the kidneys (which filter urine), ureters (the tube that carries urine from the kidneys to the bladder), the bladder (which stores urine), and urethra (the tube that carries urine out of the bladder). Bacteria do not normally live in these areas. However, bacteria normally live close to the urethra in women and men who are not circumcised. Bladder infections occur when bacteria travel up the urethra into the bladder. Factors that increase the risk of developing a bladder infection include: Vaginal sex Use of spermicides History of past bladder infections Diabetes In men, not being circumcised or having anal sex increase the risk of bladder infections. BLADDER INFECTION SYMPTOMS The typical symptoms of a bladder infection include: Pain or burning when urinating Frequent need to urinate Urgent need to urinate Blood in the urine Fever, back pain, nausea, or vomiting are not common symptoms of a bladder infection, but can occur in people with a kidney infection (pyelonephritis). If you have these symptoms, you should call your doctor or nurse immediately. Is it a bladder infection or something else? -- Burning with urination can also occur in people with vaginitis (eg, yeast infection) or urethritis (inflammation of the urethra). For this reason, it is important to call your healthcare provider before assuming you have a bladder infection. BLADDER INFECTION DIAGNOSIS Simple bladder infections are usually diagnosed based upon your symptoms alone. However, most patients, especially those who have bladder infection symptoms for the first time, should see a healthcare provider for urine testing. Urine culture -- A urine culture is a test that uses a sample of urine to try and grow bacteria in a laboratory. It usually requires about 48 hours to get results. However, a urine culture is not always required to diagnose a bladder infection. Urine culture is often recommended if: You have never had a bladder infection before You have symptoms that are not typical for bladder infection You have had resistant bladder infections before You have frequent bladder infections You do not begin to feel better within 24 to 48 hours after starting antibiotics You are BLADDER INFECTION TREATMENT Bladder infection -- In young, healthy adolescents and adults with a bladder infection, the usual treatment includes a three to seven day course of antibiotics. The typical drugs chosen are: trimethoprim-sulfamethoxazole (Bactrim ), nitrofurantoin (Macrobid ), ciprofloxacin (Cipro ) or levofloxacin (Levaquin ). In men, the infection may involve your prostate gland and treatment is usually given for at least 7 days. Your symptoms should begin to resolve within one day after starting treatment. It is important to take the full course of antibiotics to completely eliminate the infection. If your symptoms persist for more than two or three days after starting treatment, call your healthcare provider. If needed, you can take a prescription medication that numbs the bladder and urethra (phenazopyridine [Pyridium ]) to reduce the burning pain of some UTIs. A similar medication is available without a prescription (eg, Uristat). Both medications change the color of the urine (usually blue or orange) and can interfere with laboratory testing. You should not take these medications for more than 48 hours due to the risk of side effects. These medications do not treat the infection and must be taken along with an antibiotic. Some providers recommend drinking more fluids while treating bladder infections to help flush bacteria from the bladder. Others believe that drinking more fluids may dilute the antibiotic in the bladder and make the medication less effective. No studies have been performed to address this issue. There are also no good studies on the effectiveness of cranberry juice for treating a bladder infection; we do not recommend using cranberry juice to treat bladder infections. Follow-up care -- Follow-up testing is not needed in healthy, young men or women with a bladder infection if symptoms resolve. women are usually asked to have a repeat urine culture one to two weeks after treatment has ended to make sure the bacteria are no longer in the urine. RECURRENT BLADDER INFECTIONS Bladder infections versus other causes -- Some adults, especially women, develop bladder infections frequently. In this case, it is important to confirm that your symptoms (eg, pain or burning, frequency, and urgency) are caused by a bladder infection. Symptoms are usually similar from one infection to another. The best way to confirm an infection is to have a urine culture. If your urine culture is negative for infection, other causes of pain, burning, and frequency should be investigated. There is no reason to take antibiotics if your urine culture is negative. Need for further testing -- If you continue to develop bladder infections, you may require further testing. If you continue to notice blood in your urine after your bladder infection has cleared, you should have further testing. Preventing recurrent UTIs -- Women with recurrent urinary tract infections may be advised to take steps to prevent bladder infections, including one or more of the following: Changes in control -- Women who develop frequent bladder infections and use spermicides, particularly those who also use a diaphragm, may be encouraged to use an alternate method of control. Cranberry products -- Taking cranberry juice or cranberry tablets has been promoted as one way to help prevent frequent bladder infections. However, this has not been proven. Drinking more fluid and urinating after intercourse -- Although studies have not proven that drinking more fluids or urinating soon after intercourse can prevent infection, some healthcare providers recommend these measures since they are not harmful. Drinking more fluid may help to wash out bacteria that enter the bladder. Postmenopausal women -- Postmenopausal women who develop recurrent bladder infections may benefit from using vaginal estrogen. Vaginal estrogen is available in a flexible ring that is worn in the vagina for three months (eg, Estring ), a small tablet (Vagifem ), or a cream (eg, Premarin or Estrace ). Vaginal estrogen is discussed in more detail in a separate topic review. Antibiotics -- A preventive antibiotic treatment may be recommended if you repeatedly develop bladder infections and have not responded to other preventive measures. Antibiotics are highly effective in preventing recurrent bladder infections and can be taken in several different ways. Preventive antibiotic -- You can take a low dose of an antibiotic once per day or three times per week for six months to several years. Antibiotics following intercourse -- In women who develop urinary tract infections after sex, taking a single low dose antibiotic after intercourse can help to prevent bladder infections. Self-treatment -- A plan to begin antibiotics at the first sign of a bladder infection may be recommended in some situations. Before starting this regimen, it is important that you have had testing (urine cultures) to confirm that your symptoms are caused by a bladder infection; some people have symptoms of a bladder infection but do not actually have an infection. documented in this encounter [facility] 06-14-2023 History of Presen t illness Narrative SUBJECTIVE: Yasmin Eden is an 48 year old woman who presents with vaginal odor for the past couple of months. Denies any abnormal vaginal discharge, itching or burning. Stated had BV in the past and thinks she has it again. Uses Mcmullen Ana wipes at times. Predisposing factors: none Hx of previous vaginitis: rare Sexually active: yes, single partner, contraception - tubal ligation. Current Outpatient Medications on File Prior to Visit Medication Sig omeprazole (PRILOSEC) 20 mg capsule Take 20 mg by mouth once daily. RANITIDINE HCL ORAL Take by mouth. No current facility-administered medications on file prior to visit. ALLERGIES Allergen Reactions Codeine Social History Tobacco Use Smoking status: Every Day Packs/day: 0.50 Years: 9.00 Additional pack years: 0.00 Total pack years: 4.50 Types: Cigarettes Smokeless tobacco: Never Vaping Use Vaping Use: Never used Substance Use Topics Alcohol use: No Drug use: No OBJECTIVE: BP 108/70 Wt 237 lb (107.5 kg) LMP 06/13/2023 (Exact Date) BMI 43.35 kg/m Pelvic: External genitalia Normal, and vagina normal., Bimanual exam normal., Negative findings: external genitalia normal, no vulvar lesions, no cervical lesions, normal discharge, well estrogenized, good vaginal support, Moderate amount of blood present- on period. ASSESSMENT: Vaginal odor PLAN: 1) BACT/YEAST - collected and sent 2) Recheck if symptoms persist, worsen, or new symptoms develop. 3) Discussed increase in amount of bleeding with her periods. Still having cycles regularly but feels like periods keep getting heavier and heavier. Briefly discussed placement of Mirena IUD as an option - hand out provided and patient to notify office if desires. PE: Discussed vaginitis, modes of transmission, and rationale for treatment. Zaina Tavares APRN.CNM documented in this encounter [facility] 03-11-2023 History of Presen t illness Narrative COLONOSCOPY CONSULT Assessment Impression/Plan: 47 y/o wf for screening colonoscopy, Risks, benefits and alternatives of proceeding with colonoscopy were discussed with risks to include but not limited to hemorrhage, infection, the possibility of perforation requiring surgical intervention and the possibility of missing an abnormality.Patient expressed understanding and wishes to proceed. HPI: Yasmin Eden is a 47 year old female who to discuss colonoscopy.she has history of no colonic abnormalities and presents for screening.Patient has not had previous colonoscopy . The patient has no gastointestinal symptoms Family History: Colon polyps in mother PAST MEDICAL HISTORY Diagnosis Date NEGATIVE MEDICAL HISTORY PAST SURGICAL HISTORY Procedure Laterality Date APPENDECTOMY 1996 LAPAROSCOPY SURG CHOLECYSTECTOMY 1998 Cholecystectomy, lap LIG/TRNSXJ FLP TUBE ABDL/VAG APPR UNI/BI 1999 Tubal ligation FAMILY HISTORY Problem Relation Age of Onset Coronary Artery Disease Mother TX Colon Polyps Mother Coronary Artery Disease Father [place] Breast Cancer Maternal Grandmother Cancer Maternal Grandmother THROAT CURRENT MEDICATIONS: RANITIDINE HCL ORAL Take by mouth. CURRENT ALLERGIES: ALLERGIES Allergen Reactions Codeine Social History Tobacco Use Smoking status: Every Day Packs/day: 0.50 Years: 9.00 Additional pack years: 0.00 Total pack years: 4.50 Types: Cigarettes Smokeless tobacco: Never Vaping Use Vaping Use: Never used Substance Use Topics Alcohol use: No Drug use: No Ros: As above Physical ExamBP 125/96 Pulse 80 Ht 157.5 cm (5' 2) Wt 105.2 kg (232 lb) LMP 12/05/2022 (Within Days) BMI 42.43 kg/m BP 125/96 Pulse 80 Ht 157.5 cm (5' 2) Wt 105.2 kg (232 lb) LMP 12/05/2022 (Within Days) BMI 42.43 kg/m Body mass index is 42.43 kg/m . General appearance: Well appearing, alert, in no acute distress Head: Normocephalic, atraumatic Eyes: Anicteric sclera , Pupils are equally round and reactive Neck: No JVD, Trachea midline Lungs:Clear to auscultation, no wheezing or rhonchi Heart: RRR without murmur, gallop, or rubs. No ectopy Abdomen: Abdomen soft, non-tender. Non distended. No masses, organomegaly Extremities:No clubbing, cyanosis, or edema. Neuro: Alert and oriented times three, No apparent distress Cleopatra Cortés MD 03/11/2023 1:15 PM documented in this encounter [facility] 02-15-2023 Miscellaneous Notes February 18, 2023 PID: [id number] Yasmin Eden [address] [place] [address] Dear Ms. Eden, Your prior imaging studies have arrived and been compared to your current study. We are pleased to inform you that the results of your recent breast imaging exam on 02/07/2023 are normal. Your mammogram demonstrates that you have dense breast tissue, which could hide abnormalities. Dense breast tissue, in and of itself, is a relatively common condition. Therefore, this information is not provided to cause undue concern; rather, it is to raise your awareness and promote discussion with your health care provider regarding the presence of dense breast tissue in addition to other risk factors. Early detection of cancer is very important. We also understand recommendations regarding breast cancer screening are controversial. Please discuss with your primary care provider which strategy is best for you and whether a mammogram is right for you. Your imaging studies and report will be kept on file at [facility] as part of your permanent medical record and are available for your continuing care. Thank you for allowing us to help in meeting your health care needs. Sincerely, Dr. Presley Interpreting Radiologist [facility] (Normal [facility] [employer] compared) documented in this encounter [facility] 02-13-2023 Miscellaneous Notes Detailed message left on personal voice mail notifying patient of orders placed and number to call to schedule. Luba Murcia RN Orders signed. Zaina Tavares APRN.CNM Patient tried to schedule her diagnostic mammogram but there are no orders. Please file pended orders. Patient will need to be contacted to schedule. Luba Murcia RN documented in this encounter [facility] 02-08-2023 Miscellaneous Notes February 08, 2023 PID: [id number] Yasmin Eden [address] [place] [address] Dear Ms. Eden, Your breast imaging exam 02/07/2023 showed a possible finding that may require additional imaging studies for a complete evaluation. However, we recognize you have prior imaging studies at facilities other than [facility], and would like the opportunity to compare your recent imaging with those studies to evaluate for any change. At this time, we have requested your prior studies. Your mammogram demonstrates that you have dense breast tissue, which could hide abnormalities. Dense breast tissue, in and of itself, is a relatively common condition. Therefore, this information is not provided to cause undue concern; rather, it is to raise your awareness and promote discussion with your health care provider regarding the presence of dense breast tissue in addition to other risk factors. If/when your prior studies arrive, a final report will be sent to your healthcare provider and/or you. In addition, you will receive a new result letter and or phone call If you need additional imaging. If we do not receive prior studies within 30 days of your exam, you will receive a reminder letter and or phone call to schedule your diagnostic imaging. Your imaging studies and reports are kept on file at [facility] as part of your permanent medical record, and are available for your continuing care. If you have any questions or concerns, please call [phone]. Thank you for choosing [facility] for your imaging needs. Sincerely, Dr. Presley Interpreting Radiologist [facility] ([facility] [employer]) documented in this encounter [facility] 02-07-2023 History of Presen t illness Narrative Radiology Service Progress Note PATIENT NAME: Yasmin Eden DATE OF SERVICE: February 07, 2023 TIME: 1:16 PM PATIENT IDENTITY VERIFICATION COMPLETED USING TWO (2) IDENTIFIERS: Name and Date of confirmed by patient verbally. FALL SCREENING: Has the patient had 2 falls in the last year or 1 fall with injury or currently using an Ambulatory Assistive Device (Walker, Cane, Wheelchair, Crutches, etc.)? No PATIENT GENDER DATA: Female. status: : No status: NO. PATIENT RELEVANT IMPLANT DATA REVIEWED: Not Applicable RADIOLOGY DEPARTMENT: Mammography PERIPHERAL IV DATA: Not applicable SIGNED BY: Julio César [place] February 07, 2023 1:16 PM documented in this encounter [facility] 02-05-2023 History of Presen t illness Narrative Presents with a chief complaint of near syncopal spells. She has been having these over the past 4 days. She was at a concert standing in her car when she states she almost completely went out during the first one. She sat in the car with AC on it and started to feel better. She has had several episodes since then. The last one was yesterday. Discussed with her for near syncope or not able to evaluate this at [facility], would recommend an ER evaluation. Patient voiced understanding of plan documented in this encounter [facility] 08-21-2023 Miscellaneous Notes Pt viewed message via [place] and stated that she no longer has that metallic taste in her mouth at this time. Lisa Bradshaw LPN Please see pt's [place] message in CP absence and further advise. Lisa Bradshaw LPN documented in this encounter [facility] 12-19-2022 History of Presen t illness Narrative Yasmin is a 47 year old who is new to office presents for an annual gynecologic exam without complaints. She was seen at Urgent Care last week and treated for UTI. Thinks she may have yeast infection Menses: cycles every 27-30 days and 5 days of flow. 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 LMP: 12/05/2022 (Within Days), Having periods Age at Menarche: Age at First : Age at Menopause: Insurance Processing Clerk History Comments: Sexual Activity: Yes; Male Contraception: Tubal Ligation PAST MEDICAL HISTORY Diagnosis Date NEGATIVE MEDICAL HISTORY PAST SURGICAL HISTORY Procedure Laterality Date APPENDECTOMY 1996 LAPAROSCOPY SURG CHOLECYSTECTOMY 1998 Cholecystectomy, lap LIG/TRNSXJ FLP TUBE ABDL/VAG APPR UNI/BI 1999 Tubal ligation FAMILY HISTORY Problem Relation Age of Onset Breast Cancer Maternal Grandmother Cancer Maternal Grandmother THROAT Coronary Artery Disease Mother [place] Coronary Artery Disease Father [place] SOCIAL HISTORY Social History Tobacco Use Smoking status: Every Day Packs/day: 0.50 Years: 9.00 Additional pack years: 0.00 Total pack years: 4.50 Types: Cigarettes Smokeless tobacco: Never Substance Use Topics Alcohol use: No Drug use: No REVIEW OF SYSTEMS Abdomen: No abdominal pain, nausea, vomiting, diarrhea, or constipation. No bloating, early satiety, indigestion, or increased flatulence. Bladder: No dysuria, gross hematuria, urinary frequency, urinary urgency, or incontinence and Bladder surgery - 2019. Breast: No breast lumps, nipple d/c, overlying skin changes, redness or skin retraction. Allergies and current medication updated:Yes EXAM: BP 118/72 Ht 5' 2 (1.58m) Wt 232 lb (105.2kg) LMP 12/05/2022 BMI 42.42 kg/(m^2). GENERAL: pleasant, female in no apparent distress HEENT: Normocephalic and atraumatic NECK: Supple and full range of motion DERMATOLOGY: Normal, without lesions, non-icteric, and non-hirsute BREAST: soft, non-tender, symmetric, no dominant mass, normal nipple-areolar complex, no lymphadenopathy, and no nipple discharge CHEST: Normal inspiratory effort ABDOMEN: soft, non-tender, and no masses PELVIC: external genitalia normal, normal Bartholin's glands, urethra, Kaloko's glands, no vulvar lesions, no cervical lesions, good vaginal support, physiologic discharge present, normal appearing perineal body and perianal region BIMANUAL: uterus normal size, shape and consistency, no adnexal masses, non-tender, and no cervical motion tenderness RECTOVAGINAL: deferred. NEURO: alert and oriented x3,exam grossly non-focal EXTREMITIES: normal ASSESSMENT/PLAN: 1) Health maintenance: Pap done with HPV. BV/Yeast swab collected Nutrition, exercise and routine health maintenance exams reviewed. Calcium/Vitamin D supplementation information provided. Smoking cessation: Smoking cessation encouraged and resources provided. Benefits of smoking cessation reviewed. Patient encouraged to avoid smoking. Lipids/glucose: up to date 2) Contraception: tubal sterilization. 3) STD screening: Accepted STD check for Gonorrhea and Chlamydia. 4) Follow up one year or sooner as needed Zaina Tavares APRN.CNM documented in this encounter [facility] 05-15-2022 History of Presen t illness Narrative This note was created using NoteWriter. Subjective Yasmin Eden is a 47 year old female. HPI Presents with low back pain, nausea and upper abdominal pain. She denies any diarrhea. No vomiting. She states the pain sometimes comes in waves. She denies urinary frequency, dysuria, hematuria or urgency. No fever. No cough or congestion. No sore throat. She has a history of an ulcer that she states was [place] She does have a history of acid reflux and is on omeprazole. She has been taking Aleve 1-2 times a day over the past 6 months for arthritis pain. Denies seeing jose gross blood in her urine, thinks maybe her stools have been a little darker the past couple days. No pain with bowel movements. Denies chance of , she has had a tubal ligation. Review of Systems HENT: Negative. Respiratory: Negative. Cardiovascular: Negative. Gastrointestinal: Positive for abdominal pain and nausea. Negative for blood in stool, diarrhea and vomiting. Genitourinary: Negative for dysuria, frequency, hematuria, urgency, vaginal bleeding, vaginal discharge and vaginal pain. Musculoskeletal: Positive for back pain. All other systems reviewed and are negative. PAST MEDICAL HISTORY Diagnosis Date NEGATIVE MEDICAL HISTORY Current Outpatient Medications Medication Sig Dispense Refill ranitidine 150 mg tablet Take 1 tablet by mouth twice daily. 60 tablet 5 pramipexole (MIRAPEX) 0.5 mg tablet Take 0.5 mg by mouth daily at bedtime. buPROPion SR (ZYBAN SR; WELLBUTRIN SR) 150 mg 12 hr tablet Take 1 tablet by mouth twice daily. (Patient not taking: Reported on 05/15/2022) 60 tablet 5 nicotine polacrilex (NICORETTE) 2 mg gum Take 1 Each by mouth every 2 hours as needed (nicotine withdrawal). (Patient not taking: Reported on 05/15/2022) 20 Each 5 nabumetone 500 mg tablet Take 1 tablet by mouth twice daily as needed for Pain. TAKE WITH FOOD (Patient not taking: Reported on 05/15/2022) 60 tablet 3 No current facility-administered medications for this visit. PAST SURGICAL HISTORY Procedure Laterality Date APPENDECTOMY 1996 LAPAROSCOPY SURG CHOLECYSTECTOMY 1998 Cholecystectomy, lap LIG/TRNSXJ FLP TUBE ABDL/VAG APPR UNI/BI 1999 Tubal ligation FAMILY HISTORY Problem Relation Age of Onset Breast Cancer Maternal Grandmother Cancer Maternal Grandmother THROAT Coronary Artery Disease Mother [place] Coronary Artery Disease Father [place] Social History Tobacco Use Smoking status: Every Day Packs/day: 0.50 Years: 9.00 Pack years: 4.50 Types: Cigarettes Smokeless tobacco: Never Substance Use Topics Alcohol use: No Drug use: No Objective BP 102/68 Pulse 84 Temp 36.9 C (98.4 F) (Tympanic) Resp 18 Wt 96 kg (211 lb 9.6 oz) LMP 03/07/2014 BMI 36.32 kg/m Physical Exam Vitals reviewed. Constitutional: Appearance: Normal appearance. HENT: Head: Normocephalic and atraumatic. Mouth/Throat: Mouth: Mucous membranes are moist. Pharynx: Oropharynx is clear. Cardiovascular: Rate and Rhythm: Normal rate and regular rhythm. Heart sounds: Normal heart sounds. Pulmonary: Effort: Pulmonary effort is normal. Breath sounds: Normal breath sounds. Abdominal: Comments: Patient has mild tenderness in the epigastric area. No rebound or guarding. Mild tenderness in the lower abdomen diffusely. Bowel sounds are active. Abdomen soft and nondistended. Musculoskeletal: Comments: Patient tender on palpation in the bilateral lower paraspinal musculature. No midline tenderness. No step-off or crepitation. Increased pain with range of motion. Normal strength and sensation in lower extremities. Able to ambulate. Neurological: General: No focal deficit present. Mental Status: She is alert. Assessment and Plan ASSESSMENT/PLAN: 1. Low back pain, unspecified back pain laterality, unspecified chronicity, unspecified whether sciatica present - ICD9: 724.2, ICD10: M54.50 (primary diagnosis) - UA DIP, URINE (POC) - URINE CULTURE - ESTABLISH WITH PRIMARY CARE - NEW PATIENT 2. History of peptic ulcer - ICD9: V12.71, ICD10: Z87.11 Cussed with patient to avoid NSAIDs. Discussed if her pain becomes worse she really needs to be seen in the ER. Discussed limitation of express care. Urinalysis showed no signs of infection other than trace leuks. She is not having any urinary symptoms. Will send for culture. Treat as indicated. We will have her follow-up with GI. Also made her an appointment to establish with PCP. She will continue her omeprazole. - CONSULT TO GASTROENTEROLOGY Mera Austin PA-C documented in this encounter [facility] 01-08-2014 History of Past i llness Narrative Problem Noted Date Resolved Date Epigastric abdominal pain 01/08/20142013 documented as of this encounter (statuses as of 05/15/2022) [facility] History of Past illness Narrative* Problem Noted Date Diagnosed Date Resolved Date Epigastric abdominal pain 01/08/2014 documented as of this encounter (statuses as of 12/20/2022) [facility] History of Past illness Narrative* Problem Noted Date Diagnosed Date Resolved Date Epigastric abdominal pain 01/08/2014 documented as of this encounter (statuses as of 12/24/2022) [facility] History of Past illness Narrative* Problem Noted Date Diagnosed Date Resolved Date Epigastric abdominal pain 01/08/2014 documented as of this encounter (statuses as of 02/07/2023) [facility] History of Past illness Narrative* Problem Noted Date Diagnosed Date Resolved Date Epigastric abdominal pain 01/08/2014 documented as of this encounter (statuses as of 02/07/2023) [facility] History of Past illness Narrative* Problem Noted Date Diagnosed Date Resolved Date Epigastric abdominal pain 01/08/2014 documented as of this encounter (statuses as of 02/12/2023) [facility] History of Past illness Narrative* Problem Noted Date Diagnosed Date Resolved Date Epigastric abdominal pain 01/08/2014 documented as of this encounter (statuses as of 02/13/2023) [facility] History of Past illness Narrative* Problem Noted Date Diagnosed Date Resolved Date Epigastric abdominal pain 01/08/2014 documented as of this encounter (statuses as of 02/19/2023) [facility] History of Past illness Narrative* Problem Noted Date Diagnosed Date Resolved Date Epigastric abdominal pain 01/08/2014 documented as of this encounter (statuses as of 03/10/2023) [facility] History of Past illness Narrative* Problem Noted Date Diagnosed Date Resolved Date Epigastric abdominal pain 01/08/2014 documented as of this encounter (statuses as of 03/12/2023) [facility] History of Past illness Narrative* Problem Noted Date Diagnosed Date Resolved Date Epigastric abdominal pain 01/08/2014 documented as of this encounter (statuses as of 06/14/2023) [facility] note* Diagnosis Low back pain, unspecified back pain laterality, unspecified chronicity, unspecified whether sciatica present- Primary History of peptic ulcer Personal history of peptic ulcer disease [facility] [place] [facility] Diagnosis Vaginal yeast infection- Primary Candidiasis of vulva and vagina Encounter for gynecological examination (general) (routine) without abnormal findings Screening for cervical cancer Screening for malignant neoplasm of the cervix Encounter for screening for human papillomavirus (HPV) Special screening examination for human papillomavirus (HPV) Encounter for screening mammogram for breast cancer Screening for STD (sexually transmitted disease) Screening examination for venereal disease documented in this encounter [facility] note* Diagnosis Near syncope- Primary Syncope and collapse [facility] [place] [facility] Diagnosis Abnormal screening mammogram- Primary Abnormal mammogram, unspecified [facility] [place] [facility] Diagnosis Encounter for screening mammogram for breast cancer [facility] [place] [facility] Diagnosis Encounter for screening colonoscopy Special screening for malignant neoplasms, colon [facility] [place] [facility]* Diagnosis Vaginal odor- Primary Unspecified symptom associated with female genital organs [facility] [place] [facility] Diagnosis Urinary frequency- Primary Acute cystitis with hematuria Acute cystitis Dysuria [facility] [place] [facility] Diagnosis Abnormal mammogram- Primary Abnormal mammogram, unspecified [facility] [place] [facility]* Diagnosis Breast screening Breast screening, unspecified [facility] [place] [facility]* Diagnosis Urinary frequency- Primary Dysuria [facility] [place] [facility] Diagnosis Urinary frequency- Primary [facility] [place] [facility]* Diagnosis Abnormal mammogram Abnormal mammogram, unspecified [facility] [place] [facility] Diagnosis Abnormal mammogram Abnormal mammogram, unspecified [facility] Diagnosis Vaginal irritation- Primary Unspecified noninflammatory disorder of vagina Vulvar itching Pruritus of genital organs Dysuria documented in this encounter [facility] note* Diagnosis Bacterial vaginosis- Primary Vaginitis and vulvovaginitis, unspecified Vaginal yeast infection Candidiasis of vulva and vagina documented in this encounter [facility] note* Diagnosis Encounter for gynecological examination (general) (routine) without abnormal findings- Primary Encounter for screening mammogram for breast cancer Recurrent UTI Urinary tract infection, site not specified Irregular periods Irregular menstrual cycle Perimenopausal Symptomatic menopausal or female climacteric states documented in this encounter [facility] for referral (narrative)* Diagnostic Procedure Only (Routine) - Pending Review Specialty Diagnoses / Procedures Referred By Cammy abebe Referred To Contact [facility] Diagnoses Encounter for screening mammogram for breast cancer Procedures RADHA SCREENING SCREENING MAMMOGRAPHY BI 2-VIEW BREAST INC CAD Zaina Tavares APRN.CNM [address] [place] [address] [facility] [address] [id number] Referral ID Status Reason Start Date Expiration Date Visits Requested Visits Authorized [id number] Pending Review Auto-Generat ed Referral 12/19/2022 01/18/2024 1 1 [facility] for referral (narrative)* Diagnostic Procedure Only (Routine) - Pending Review Specialty Diagnoses / Procedures Referred By Cammy abebe Referred To Contact [facility] Diagnoses Abnormal screening mammogram Procedures US BREAST LTD RIGHT US BREAST UNI REAL TIME WITH IMAGE LIMITED Zaina Tavares APRN.CNM [address] [place] [address] [facility] [address] [address] Referral ID Status Reason Start Date Expiration Date Visits Requested Visits Authorized [id number] Pending Review Auto-Generat ed Referral 03/14/2024 1 1 * Diagnostic Procedure Only (Routine) - Pending Review Specialty Diagnoses / Procedures Referred By Cammy abebe Referred To Contact [facility] Diagnoses Abnormal screening mammogram Procedures RADHA DIAGNOSTIC RIGHT DIAGNOSTIC MAMMOGRAPHY COMPUTER-AIDED DETCJ UNI Zaina Tavares APRN.CNM [address] [place] [address] [facility] [address] [place] [address] Referral ID Status Reason Start Date Expiration Date Visits Requested Visits Authorized [id number] Pending Review Auto-Generat ed Referral 3 03/14/2024 1 1 [facility] for referral (narrative)* Diagnostic Procedure Only (Routine) - Closed Specialty Diagnoses / Procedures Referred By Cammy abebe Referred To Contact [facility] Diagnoses Encounter for screening mammogram for breast cancer Procedures RADHA SCREENING SCREENING MAMMOGRAPHY BI 2-VIEW BREAST INC CAD Zaina Tavares APRN.CNM [address] [place] [address] [facility] [address] [place] [address] Referral ID Status Reason Start Date Expiration Date V isits Requested Visits Authorized [id number] Closed Auto-Generated Referral Patient Cleared - Qualified 100% FAS 12/19/2022 01/18/2024 1 1 [facility] for referral (narrative)* Diagnostic Procedure Only (Routine) - New Request Specialty Diagnoses / Procedures Referred By Cammy abebe Referred To Contact [facility] Diagnoses Abnormal mammogram Procedures US BREAST LTD LEFT US BREAST UNI REAL TIME WITH IMAGE LIMITED Joanie Luna APRN.TICKET BROKER [address] [place] [address] [facility] [address] [place] [address] Referral ID Status Reason Start Date Expiration Date Visits Requested Visits Authorized [id number] New Request Auto-Generat ed Referral 4 03/18/2025 1 1 * Diagnostic Procedure Only (Routine) - New Request Specialty Diagnoses / Procedures Referred By Cammy t Referred To Contact [facility] Diagnoses Abnormal mammogram Procedures RADHA DIAGNOSTIC LEFT DIAGNOSTIC MAMMOGRAPHY COMPUTER-AIDED DETCJ UNI Joanie Luna APRN.TICKET BROKER [address] [place] [address] [facility] [address] [place] [address] Referral ID Status Reason Start Date Expiration Date Visits Requested Visits Authorized [id number] New Request Auto-Generat ed Referral 03/18/2025 1 1 [facility] for referral (narrative)* Diagnostic Procedure Only (Routine) - Closed Specialty Diagnoses / Procedures Referred By Cammy t Referred To Contact [facility] Diagnoses Breast screening Procedures RADHA SCREENING W ELISA SCREENING DIGITAL BREAST TOMOSYNTHESIS BI SCREENING MAMMOGRAPHY BI 2-VIEW BREAST INC Radha Mota APRN.CNM [address] [place] [address] [facility] [address] [place] [address] Referral ID Status Reason Start Date Expiration Date V isits Requested Visits Authorized [id number] Closed Auto-Generate d Referral 02/11/2024 03/12/2025 1 1 [facility] for referral (narrative)* Diagnostic Procedure Only (Routine) - Closed Specialty Diagnoses / Procedures Referred By Cammy t Referred To Contact [facility] Diagnoses Abnormal mammogram Procedures US BREAST LTD LEFT US BREAST UNI REAL TIME WITH IMAGE LIMITED Joanie Luna APRN.TICKET BROKER [address] [place] [address] [facility] [address] [place] [address] Referral ID Status Reason Start Date Expiration Date V isits Requested Visits Authorized [id number] Closed Auto-Generate d Referral 02/17/2024 03/18/2025 1 1 [facility] for visit Narrative* Diagnostic Procedure Only (Routine) - Closed Specialty Diagnoses / Procedures Referred By Contac t Referred To Contact [facility] Diagnoses Breast screening Procedures RADHA SCREENING W ELISA SCREENING DIGITAL BREAST TOMOSYNTHESIS BI SCREENING MAM[facility]GRAPHY [facility] Radha Mota, ARLENE.CNM [address] [place] [id number] [facility] [address] [place] [id number] Referral ID Status Reason Start Date Expiration Date V isits Requested Visits Authorized [id number] Closed Auto-Generate d Referral 02/11/2024 03/12/2025 1 1 [facility] for visit Narrative* Diagnostic Procedure Only (Routine) - Closed Specialty Diagnoses / Procedures Referred By Cammy abebe Referred To Contact [facility] Diagnoses Abnormal mammogram Procedures RADHA DIAGNOSTIC LEFT DIAGNOSTIC MAMMOGRAPHY COMPUTER-AIDED DETCJ Joanie Atkinson APRN.TICKET BROKER [address] [place] [address] [facility] [address] [place] [address] Referral ID Status Reason Start Date Expiration Date V isits Requested Visits Authorized [id number] Closed Auto-Generate d Referral 02/17/2024 03/18/2025 1 1 [facility] Summary Purpose Family History No Family History Records FoundNo Family History Records FoundNo Family History Records Found Advance Directives No Advanced Directives Records FoundDocuments on File Type Date Recorded 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 Advance Directive(s) 02/08/2014 2:35 PM Advance Directive(s) 07/03/2011 Advance Directive(s) 04/22/2008 Documents on File Type Date Recorded 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 Advance Directive(s) 02/08/2014 2:35 PM Advance Directive(s) 07/03/2011 Advance Directive(s) 04/22/2008 Reason for Referral Specialty Diagnoses / Procedures Referred By Cammy t Referred To Contact Diagnoses Low back pain, unspecified back pain laterality, unspecified chronicity, unspecified whether sciatica present Procedures ESTABLISH WITH PRIMARY CARE NEW PATIENT OFFICE/OUTPATIENT [facility] 60-74 MINUTES Mera Austin PA-C [address] [place] [address] Referral ID Status Reason Start Date Expiration Date Visits Requested Visits Authorized [id number] Pending Review PCP Requested Referral 05/15/2022 05/15/2023 1 1 Specialty Diagnoses / Procedures Referred By Contac t Referred To Contact Gastroenterology Diagnoses History of peptic ulcer Procedures CONSULT TO GASTROENTEROLOGY OFFICE/OUTPATIENT [facility] 60-74 MINUTES Mera Austin PA-C [address] [place] [address] Referral ID Status Reason Start Date Expiration Date Visits Requested Visits Authorized [id number] Pending Review PCP Requested Referral 05/15/2022 05/15/2023 1 1 Specialty Diagnoses / Procedures Referred By Contac t Referred To Contact Diagnoses Urinary frequency Procedures CONSULT TO URO GYNECOLOGY OFFICE/OUTPATIENT [facility] 60 MINUTES Dez Kay MD [address] [place] [address] Referral ID Status Reason Start Date Expiration Date Visits Requested Visits Authorized [id number] Authorized PCP Requested Referral Auto-Generate d Referral 06/16/2024 1 1 Additional Source Comments INFORMATION SOURCE (unrecogn ized section and content) DATE CREATED AUTHOR 07/24/2021 [facility] DATE CREATED AUTHOR AUTHOR'S ORGANIZ ATION 05/17/[address] [facility] DATE CREATED AUTHOR AUTHOR'S ORGANIZ ATION 03/02/2025 [facility] Source Comments (unrecognize d section and content) In the event this informatio n is protected by the Federal Confidentiality of Alcohol and Drug Abuse Patient Records regulations: The Federal rules restrict any use of the information to criminally investigate or prosecute any alcohol or drug abuse patient.[facility] the event this information is protected by the Federal Confidentiality of Alcohol and Drug Abuse Patient Records regulations: The Federal rules restrict any use of the information to criminally investigate or prosecute any alcohol or drug abuse patient.[facility] the event this information is protected by the Federal Confidentiality of Alcohol and Drug Abuse Patient Records regulations: The Federal rules restrict any use of the information to criminally investigate or prosecute any alcohol or drug abuse patient.[facility] the event this information is protected by the Federal Confidentiality of Alcohol and Drug Abuse Patient Records regulations: The Federal rules restrict any use of the information to criminally investigate or prosecute any alcohol or drug abuse patient.[facility] the event this information is protected by the Federal Confidentiality of Alcohol and Drug Abuse Patient Records regulations: The Federal rules restrict any use of the information to criminally investigate or prosecute any alcohol or drug abuse patient.[facility] the event this information is protected by the Federal Confidentiality of Alcohol and Drug Abuse Patient Records regulations: The Federal rules restrict any use of the information to criminally investigate or prosecute any alcohol or drug abuse patient.[facility] the event this information is protected by the Federal Confidentiality of Alcohol and Drug Abuse Patient Records regulations: The Federal rules restrict any use of the information to criminally investigate or prosecute any alcohol or drug abuse patient.[facility] the event this information is protected by the Federal Confidentiality of Alcohol and Drug Abuse Patient Records regulations: The Federal rules restrict any use of the information to criminally investigate or prosecute any alcohol or drug abuse patient.[facility] the event this information is protected by the Federal Confidentiality of Alcohol and Drug Abuse Patient Records regulations: The Federal rules restrict any use of the information to criminally investigate or prosecute any alcohol or drug abuse patient.[facility] the event this information is protected by the Federal Confidentiality of Alcohol and Drug Abuse Patient Records regulations: The Federal rules restrict any use of the information to criminally investigate or prosecute any alcohol or drug abuse patient.[facility] the event this information is protected by the Federal Confidentiality of Alcohol and Drug Abuse Patient Records regulations: The Federal rules restrict any use of the information to criminally investigate or prosecute any alcohol or drug abuse patient.[facility] the event this information is protected by the Federal Confidentiality of Alcohol and Drug Abuse Patient Records regulations: The Federal rules restrict any use of the information to criminally investigate or prosecute any alcohol or drug abuse patient.[facility] the event this information is protected by the Federal Confidentiality of Alcohol and Drug Abuse Patient Records regulations: The Federal rules restrict any use of the information to criminally investigate or prosecute any alcohol or drug abuse patient.[facility] Hospital[facility] the event this information is protected by the Federal Confidentiality of Alcohol and Drug Abuse Patient Records regulations: The Federal rules restrict any use of the information to criminally investigate or prosecute any alcohol or drug abuse patient.[facility] Hospital[facility] the event this information is protected by the Federal Confidentiality of Alcohol and Drug Abuse Patient Records regulations: The Federal rules restrict any use of the information to criminally investigate or prosecute any alcohol or drug abuse patient.[facility] Hospital[facility] the event this information is protected by the Federal Confidentiality of Alcohol and Drug Abuse Patient Records regulations: The Federal rules restrict any use of the information to criminally investigate or prosecute any alcohol or drug abuse patient.[facility] Hospital[facility] the event this information is protected by the Federal Confidentiality of Alcohol and Drug Abuse Patient Records regulations: The Federal rules restrict any use of the information to criminally investigate or prosecute any alcohol or drug abuse patient.[facility] Hospital[facility] the event this information is protected by the Federal Confidentiality of Alcohol and Drug Abuse Patient Records regulations: The Federal rules restrict any use of the information to criminally investigate or prosecute any alcohol or drug abuse patient.[facility] Hospital[facility] the event this information is protected by the Federal Confidentiality of Alcohol and Drug Abuse Patient Records regulations: The Federal rules restrict any use of the information to criminally investigate or prosecute any alcohol or drug abuse patient.[facility] HospitalIn the event this information is protected by the Federal Confidentiality of Alcohol and Drug Abuse Patient Records regulations: The Federal rules restrict any use of the information to criminally investigate or prosecute any alcohol or drug abuse patient.[facility] HospitalIn the event this information is protected by the Federal Confidentiality of Alcohol and Drug Abuse Patient Records regulations: The Federal rules restrict any use of the information to criminally investigate or prosecute any alcohol or drug abuse patient.[facility] Reason for Visit (unrecogniz ed section and content) Reason Comments low back pain and nausea X 3 days Specialty Diagnoses / Procedures Referred By Contac t Referred To Contact Diagnoses Establishing care with new doctor, encounter for Procedures est care [place] [facility] [address] Referral ID Status Reason Start Date Expiration Date Visits Requested Visits Authorized [id number] Authorized Patient Cleared - Qualified 100% FAS 12/19/2022 03/19/2023 99 99 Reason Comments Orders Reason Comments Consult colonoscopy Specialty Diagnoses / Procedures Referred By Contac t Referred To Contact Diagnoses Establishing care with new doctor, encounter for Procedures est care [place] [facility] [address] Reason Comments Vaginal Problem Vaginal odor Specialty Diagnoses / Procedures Referred By Contac t Referred To Contact [facility] Diagnoses RIGHT DIAGNOSTIC MAMMOGRAM CALLBACK Procedures DIAGNOSTIC CALLBACK Zaina Tavares APRN.CNM [address] [place] [address] [facility] [address] Referral ID Status Reason Start Date Expiration Date Visits Requested Visits Authorized [id number] Authorized Patient Cleared - Qualified 100% FAS 3 06/24/2023 99 99 Reason Comments Urinary Frequency chills, burning with urination x 3 am Reason Comments UTI Reason Comments Radiology US Specialty Diagnoses / Procedures Referred By Contac t Referred To Contact [facility] Diagnoses Abnormal mammogram Procedures US BREAST LTD LEFT US BREAST UNI REAL TIME WITH IMAGE LIMITED Joanie Luna APRN.TICKET BROKER [address] [place] [address] [facility] [address] [place] [address] Referral ID Status Reason Start Date Expiration Date V isits Requested Visits Authorized [id number] Closed Auto-Generate d Referral 02/17/2024 03/18/2025 1 1 Reason Comments Vaginal Problem Reason Comments [facility] Teams (unrecognized sec tion and content) 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 Specialty Start Date End Date PcpSuzette PCP - General 11/18/21 06/05/22 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 Specialty Start Date End Date Nikita Choudhary APRN.TICKET BROKER [address] [place] [id number] PCP - General Internal Medicine 05/17/22 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 Specialty Start Date End Date Nikita Choudhary APRN.TICKET BROKER [address] [place] [phone] PCP - General Internal Medicine 05/17/22 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 Specialty Start Date End Date Nikita Choudhary APRN.TICKET BROKER [address] [place] [id number] PCP - General Internal Medicine 05/17/22 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 Specialty Start Date End Date Nikita Choudhary APRN.TICKET BROKER [address] [place] [address] PCP - General Internal Medicine 05/17/22 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 Specialty Start Date End Date Nikita Choudhary APRN.TICKET BROKER [address] [place] [phone] PCP - General Internal Medicine 05/17/22 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 Specialty Start Date End Date Nikita Choudhary APRN.TICKET BROKER [address] [place] [id number] PCP - General Internal Medicine 05/17/22 Kristine Keyes, ROBER [address] [place] [address] Referring Family Medicine 02/16/23 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 Specialty Start Date End Date Nikita Choudhary APRN.TICKET BROKER [address] [place] [address] PCP - General Internal Medicine 05/17/22 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 Specialty Start Date End Date Nikita Choudhary APRN.TICKET BROKER [address] [place] [address] PCP - General Internal Medicine 05/17/22 Kristine Keyes CNP [address] [place] [address] Referring Family Medicine 02/16/23 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 Specialty Start Date End Date Kristine Keyes CNP [address] [place] [address] PCP - General Family Medicine 10/08/23 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 Specialty Start Date End Date Kristine Keyes CNP [address] [place] [address] PCP - General Family Medicine 10/08/23 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 Specialty Start Date End Date Kristine Keyes CNP [address] [place] [address] PCP - General Family Medicine 10/08/23 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 Specialty Start Date End Date Kristine Keyes CNP [address] [place] [address] PCP - General Family Medicine 10/08/23 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 Specialty Start Date End Date Kristine Keyes CNP [address] [place] [address] PCP - General Family Medicine 10/08/23 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 Specialty Start Date End Date KeyesKristine hernandezROBER [address] [place], [place] [id number] PCP - General Family Medicine 10/08/23 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 This clinical summary was aggregated from multiple sources. Caution should be exercised in using it in the provision of clinical care. This summary normalizes information from multiple sources, and as a consequence, information in this document may materially change the coding, format and clinical context of patient data. In addition, data may be omitted in some cases. CLINICAL DECISIONS SHOULD BE BASED ON THE PRIMARY CLINICAL RECORDS. [employer] [facility]. provides no warranty or guarantee of the accuracy or completeness of information in this document.
[2025-03-02 12:39] LABS: Color, Urine Yellow (Yellow); Glucose, Dipstick Normal (Normal); Ketone-Dipstick 5 mg/dl (Negative); Leukocyte Esterase-Dipstick 500 /ul (Negative); Nitrite-Dipstick Negative (Negative); Occult Blood-Urine 50 /ul (Negative); Protein-Dipstick 30 mg/dl (Negative); Specific Gravity, Urine 1.020 (1.002-1.030); Urine Bilirubin Dipstick Negative (Negative)
[2025-03-02 13:20] LABS: AST(SGOT) 17 U/L (<=31); Alanine Aminotransfer ALT/SGPT 15 U/L (<=34); Albumin, Serum 3.9 g/dL (3.5-5.0); Alkaline Phosphatase 112 U/L (35-104); Anion Gap 9 (5-15); BUN 8 mg/dL (4-19); BUN/Creat Ratio 12.7 RATIO (10-20); Calcium,Total 9.3 mg/dL (7.6-11.0); Carbon Dioxide 28.8 mmol/L (21.0-32.0); Chloride 101 mmol/L (98-108); Cholesterol 188 mg/dL (<=200); Globulin 3.5 g/dL (2.2-4.2); Glucose 94 mg/dL (70-99); Low Density Lipoprotein Calc. 135 mg/dL; Potassium 4.0 mmol/L (3.3-5.1); Triglycerides 95 mg/dL; Very Low Density Lipoprotein 19 mg/dL (5-40); cholesterol:hdl ratio screen 5.31
== END | disposition home or self-care (01) ==
LOC: VSLAB 09:50
DX: Z00.00 Encounter for general adult medical examination without abnormal findings (principal)
CPT/HCPCS: 36415; 80053; 80061; 81002; 83036; 84443

== ENCOUNTER → 2025-03-08 | Outpatient (CLI) | payer BC, SELFPAY ==
[2025-03-08 17:16] LABS: Color, Urine Yellow (Yellow); Glucose, Dipstick Normal (Normal); Ketone-Dipstick Negative (Negative); Leukocyte Esterase-Dipstick 500 /ul (Negative); Nitrite-Dipstick Negative (Negative); Occult Blood-Urine 150 /ul (Negative); Protein-Dipstick 30 mg/dl (Negative); Specific Gravity, Urine 1.020 (1.002-1.030); Urine Bilirubin Dipstick Negative (Negative)
== END | disposition home or self-care (01) ==
LOC: VSLAB 13:39
DX: M54.50 Low back pain, unspecified (principal)
CPT/HCPCS: 81002